=== PATIENT | male | born 1965 | race Caucasian/White ===

== ENCOUNTER → 2016-08-26 | Outpatient (CLI) | payer OTHER ==
[~2016-08-26] MED LIST: ASPCH81X PO; CHOL100010 PO; INDO-22 PO; LOSA50TA6 PO; METH40CA PO
[2016-08-26 13:51] LABS: BASO % 0.2 %; BASO ABS # 0.02 K/uL (0-0.2); COMPLETE YES; HEMATOCRIT 41.6 % (42-52); IG% 0.2 %; LYMPH % 24.3 %; LYMPH ABS # 2.03 K/uL (1.2-3.4); MEAN CORPUSCULAR HEMOGLOBIN 27.1 pg (25-34); MEAN CORPUSCULAR HGB CONC 32.7 g/dl (32-36); MEAN PLATELET VOLUME 9.6 fL (7.4-10.4); NEUT % 66.3 %; PLATELET COUNT 244 K/uL (130-400); RED BLOOD COUNT 5.01 M/uL (4.7-6.1); WHITE BLOOD COUNT 8.36 K/uL (4.8-10.8)
[2016-08-26 14:22] LABS: ESTIMATED AVERAGE GLUCOSE 111 mg/dl; HA1C FLAG Normal (Normal)
[2016-08-26 14:29] LABS: ALT/SGPT 27 U/L (12-78); BLOOD UREA NITROGEN 20 mg/dl (7-18); CALCIUM 8.9 mg/dl (8.5-10.1); CARBON DIOXIDE 28 mmol/L (21-32); CHLORIDE 104 mmol/L (98-107); CHOLESTEROL 183 mg/dl (0-200); CREATININE 0.99 mg/dl (0.60-1.40); GLUCOSE 70 mg/dl (70-99); POTASSIUM 4.1 mmol/L (3.5-5.1); SODIUM 140 mmol/L (136-145); TRIGLYCERIDES 119 mg/dl (0-150); VERY LOW DENSITY LIPOPROT CALC 24 mg/dl
[2016-08-26 14:33] LABS: ALB/GLOB RATIO 0.9 (0.9-2); ALKALINE PHOSPHATASE 128 U/L (45-117); AST/SGOT 17 U/L (15-37); CHOLESTEROL/HDL RATIO 4.7; HDL CHOLESTEROL 39 mg/dl; LDL CHOLESTEROL CALCULATED 120 mg/dl; PROSTATE SPECIFIC ANTIGEN 0.077 ng/ml (0.000-4.000); TOTAL IRON BINDING CAPACITY 266 mcg/dl (250-450)
== END | disposition home or self-care (01) ==
LOC: C.LABBC 10:24
PROVIDERS: ATTEND Family Medicine
DX: Z11.59 Encounter for screening for other viral diseases (principal); D64.9 Anemia, unspecified; R73.03 Prediabetes; I10 Essential (primary) hypertension; R39.9 Unspecified symptoms and signs involving the genitourinary system; E78.5 Hyperlipidemia, unspecified

== ENCOUNTER → 2016-10-13 | Outpatient (CLI) | payer OTHER ==
--- NOTE | 2016-10-13 10:00 | DIAGNOSTIC IMAGING REPORT ---
(BARIUM SWALLOW) ESOPHAGUS CLINICAL HISTORY: R13.10 Dysphagia PATIENT WITH DYSPHAGIA, COUGH WITH EATING, AND P COMPARISON STUDY: None. FLUOROSCOPY TIME: 1.2 minutes. 23 images submitted. FINDINGS: The patient swallowed barium without difficulty. The contours of the hypopharynx are within normal limits. The esophagus is normal in course, caliber, motility. No hiatus hernia. No gastroesophageal reflux. The barium tablet passed without difficulty. IMPRESSION: Normal barium swallow. Electronically signed by: Braulio Lobato M.D. 10/13/2016 9:58 AM Dictated Date/Time: 10/13/2016 9:57 AM
== END | disposition home or self-care (01) ==
LOC: C.RAD 08:25
DX: R13.10 Dysphagia, unspecified (principal)

== ENCOUNTER → 2016-11-14 | Outpatient (CLI) | payer OTHER ==
--- NOTE | 2016-11-14 09:09 | DIAGNOSTIC IMAGING REPORT ---
TWO VIEW CHEST CLINICAL HISTORY: Cough. FINDINGS: PA and lateral chest radiographs are compared to study dated 05/23/2016. The heart is top normal for projection. The pulmonary vasculature is noncongested. The lungs and pleural spaces are clear. There is no pneumothorax. The bony thorax appears intact. Degenerative change and mild scoliosis are noted in the thoracic spine. IMPRESSION: No active disease in the chest. Electronically signed by: Mark Genao M.D. 11/14/2016 9:07 AM Dictated Date/Time: 11/14/2016 9:07 AM
== END | disposition home or self-care (01) ==
LOC: C.RADBC 08:32
PROVIDERS: ATTEND Family Medicine
DX: R05 Cough (principal)

== ENCOUNTER → 2016-12-29 | Outpatient (CLI) | payer OTHER ==
--- NOTE | 2016-12-29 14:06 | DIAGNOSTIC IMAGING REPORT ---
CHEST CT WITHOUT CONTRAST CT DOSE: 692.66 mGy.cm HISTORY: Cough. Aspiration pneumonia. TECHNIQUE: Multiaxial CT images of the chest were performed without contrast. COMPARISON: Chest 11/14/2016. FINDINGS: The central airways are patent. No pleural effusions. No pneumothorax. Punctate calcification within the right lower lobe. Mosaic attenuation within the lungs most pronounced within the lung bases. This is suggestive of air trapping. No mediastinal or hilar lymphadenopathy. Normal caliber thoracic aorta. The heart is normal in size. No pleural or pericardial effusions. The visualized unenhanced liver, spleen, and adrenal glands are unremarkable. No suspicious lytic or blastic osseous lesions. IMPRESSION: Mild mosaic attenuation within the lungs most pronounced at the lung bases. This is suggestive of air trapping and can be seen in the setting of small airways disease. No focal lung consolidations to suggest pneumonia. Electronically signed by: Braulio Lobato M.D. 12/29/2016 2:04 PM Dictated Date/Time: 12/29/2016 1:55 PM
== END | disposition home or self-care (01) ==
LOC: C.CTS 13:26
PROVIDERS: ATTEND Internal Medicine Critical Care Medicine
DX: J69.0 Pneumonitis due to inhalation of food and vomit (principal); R05 Cough

== ENCOUNTER → 2017-03-03 | Day surgery (SDC) | payer OTHER ==
[2017-02-26 14:10] VITALS: BMI 45.0
[~2017-03-03] VITALS: Ht 170.2 cm; Wt 131.8 kg
[~2017-03-03] MED LIST changes: +LIDOCAINE HCL 2% 2 ML VIAL (20MG/ML) ONE; -LOSA50TA6 PO; +PROPOFOL IV EMULSION 10 MG/ML 20 ML VIAL IV ONE; +SODIUM CHLORIDE 0.9% 500ML 500 ML IV ONE
[2017-03-03 10:59] VITALS: Ht 170.2 cm; Wt 131.8 kg
--- NOTE | 2017-03-03 11:35 | Endo History and Physical ---
History & Physical Date of Service: Mar 03, 2017. Chief Complaint: COUGH DYSPHAGIA Referring Physician: SHADIA WHEAT History of Present Illness Chronic cough. Here for EGD with [facility] pH study. Off acid suppression. Past Surgical History Hx Cardiac Surgery: No Hx Internal Defibrillator: No Hx Pacemaker: No Hx Abdominal Surgery: No Hx of Implantable Prosthesis: No Hx Post-Op Nausea and Vomiting: No Hx Cancer Surgery: No Hx Thoracic Surgery: No Hx Orthopedic: Yes (LEFT FOOT SURGERY X2) Hx Urinary Tract Surgery: No Family History None Social History Smoking Status: Never Smoker Hx Substance Use: No Hx Alcohol Use: No Allergies Coded Allergies: Povidone Iodine (Unverified Allergy, Intermediate, OTHER, 03/03/17) SWELLING Shellfish (Verified Allergy, Unknown, RASH, 03/03/17) Current Medications Reported Home Medications Medications Dose Route/Sig Max Daily Dose Days Date Category Dose Instructions Vitamin D (Cholecalciferol) 1,000 Inter.unit Tab 1,000 Inter.unit PO QAM 01/01/16 Reported Indocin (Indomethacin) 25 Mg Cap 25 Mg PO QAM 01/01/16 Reported Aspirin Chewable (Aspirin) 81 Mg Chew 81 Mg PO QAM 12/03/15 Reported RAN OUT OF MED FOR ABOUT A MONTH Ritalin La (Methylphenidate Hcl) 40 Mg Cap 1 Cap PO QAM 12/03/15 Reported Vital Signs Weight (Kilograms): 131.82 Height (Feet): 5 Height (Inches): 7 Date Time Temp Pulse Resp B/P (MAP) Pulse Ox O2 Delivery O2 Flow Rate FiO2 03/03/17 11:11 36.8 79 20 134/72 (92) 93 Room Air Physical Exam General Appearance: WD/WN, no apparent distress, + obese Respiratory/Chest: Auscultation: breath sounds normal, no wheezing Cardiovascular: Heart Auscultation: RRR, no murmurs Assessment and Plan EGD with Barakat today.
--- NOTE | 2017-03-03 13:05 | Discharge Instructions ---
Endoscopy Patient Instructions Date / Procedure(s) Performed Mar 03, 2017. EGD Allergy Information Coded Allergies: Povidone Iodine (Unverified Allergy, Intermediate, OTHER, 03/03/17) SWELLING Shellfish (Verified Allergy, Unknown, RASH, 03/03/17) Discharge Date / Findings Mar 03, 2017. Normal EGD. SMITH placement failed. Medication Instructions Restart Stopped Medication(s): Restart all medications today. Provider Instructions Activity Restrictions - No exercising or heavy lifting for 24 hours. - Do not drink alcohol the day of the procedure. - Do not drive a car or operate machinery until the day after the procedure. - Do not make any important decisions or sign important papers in 24 hours after the procedure. Following Day: - Return to full activity which may include returning to work/school. Diet Start your diet with liquids and light foods (jello, soup, juice, toast). Then eat your usual diet if not nauseated. Treatment For Common After Affects For mild abdominal pain, bloating, or excessive gas: - Rest - Eat lightly - Lie on right side Follow-Up Information Follow-up with SHADIA WHEAT as scheduled Reschedule SMITH in one month. Anesthesia Information What You Should Know You have had a procedure that required some medicine to reduce anxiety and discomfort. This treatment is called moderate sedation. After receiving the treatment, you may be sleepy, but you will be able to breathe on your own. The effects of the treatment may last for several hours. Follow these instructions along with Activity/Diet recommendations noted above: * Do NOT do anything where dizziness or clumsiness would be dangerous. * Rest quietly at home today, then you can be up and about tomorrow. * Have a responsible person stay with you the rest of today. * You may have had an I.V. today. If so, you may take the dressing off later today. Recommendations Call your doctor if: * Trouble breathing * Continuous vomiting for more than 24 hours * Temperature above 101 degrees * Severe abdominal pain or bloating * Pain not relieved by pain medicine ordered * There is increased drainage or redness from any incision * A large amount of rectal bleeding greater than 2-3 tablespoons. (If you had a polyp/s removed or have hemorrhoids, a small amount of blood - from the rectum is to be expected.) * You have any unanswered questions or concerns. IN THE EVENT OF A SERIOUS EMERGENCY, GO TO THE NEAREST EMERGENCY ROOM Your discharge instructions were prepared by provider John Jefferson. Patient Instructions Signature Page Estuardo Prado Patient (or Guardian) Signature/Date: I have read and understand the instructions given to me by my caregivers. Caregiver/RN/Doctor Signature/Date: The above-named patient and/or guardian has received patient instructions on this date. + Original Patient Signature Page (only) stays with chart. Please make copy for patient.
--- NOTE | 2017-03-03 13:24 | Anesthesiology Progress Note ---
Anesthesia Post Op Note Date & Time Mar 03, 2017 at 13:23 Vital Signs Pain Intensity: 0 Vital Signs Past 12 Hours Date Time Temp Pulse Resp B/P (MAP) Pulse Ox O2 Delivery O2 Flow Rate FiO2 03/03/17 13:12 73 20 138/96 (110) 93 Room Air 03/03/17 12:51 79 20 130/71 (90) 93 Room Air 03/03/17 11:11 36.8 79 20 134/72 (92) 93 Room Air Notes Mental Status: alert / awake / arousable, participated in evaluation Pt Amnestic to Procedure: Yes Nausea / Vomiting: adequately controlled Pain: adequately controlled Airway Patency, RR, SpO2: stable & adequate BP & HR: stable & adequate Hydration State: stable & adequate Anesthetic Complications: no major complications apparent Doing well. VSS.
[2017-03-03 13:35] VITALS: BP 148/93; PULSE 73; O2SAT 93
--- NOTE | 2017-03-04 00:14 | GI REPORT ---
Procedure Date: 03/03/2017 11:30 AM Procedure: Upper GI endoscopy Indications: Chronic cough Medicines: Propofol per Anesthesia Complications: No immediate complications. Estimated blood loss: None. Estimated Blood Loss: Estimated blood loss: none. Procedure: Pre-Anesthesia Assessment: - Prior to the procedure, a History and Physical was performed, and patient medications, allergies and sensitivities were reviewed. The patient's tolerance of previous anesthesia was reviewed. - ASA Grade Assessment: III - A patient with severe systemic disease. After obtaining informed consent, the endoscope was passed under direct vision. Throughout the procedure, the patient's blood pressure, pulse, and oxygen saturations were monitored continuously. The scope was introduced through the mouth, and advanced to the third part of duodenum. The upper GI endoscopy was accomplished with ease. The patient tolerated the procedure well. Findings: The upper third of the esophagus, middle third of the esophagus and lower third of the esophagus were normal. The Z-line was regular and was found 39 cm from the incisors. The SMITH capsule with delivery system was introduced through the mouth and advanced into the esophagus, such that the SMITH pH capsule was positioned 33 cm from the incisors, which was 6 cm proximal to the EG junction. Suction was applied to the well of the SMITH pH capsule to suck in the adjacent mucosa of the esophagus using the external vacuum pump set at a minimum vacuum pressure of 550 mmHg for 60 seconds. The SMITH pH capsule was then deployed by depressing the plunger on top of the handle to advance the locking pin into the mucosa, thereby attaching the capsule to the esophagus. The plunger was then rotated a quarter turn clockwise to release the capsule from the delivery system. The delivery system was then withdrawn. The SMITH capsule remained attached to the delivery system. It did not deploy. A second SMITH capsule placement was then attempted and again did not deploy. The procedure was aborted. The stomach was normal. The examined duodenum was normal. Impression: - Normal upper third of esophagus, middle third of esophagus and lower third of esophagus. - Z-line regular, 39 cm from the incisors. - Normal stomach. - Normal examined duodenum. - Failed SMITH capsule placement. - No specimens collected. Recommendation: - Repeat the upper endoscopy in [address] new SMITH capsule. John Jefferson M.D. John Jefferson MD 03/03/2017 12:54:23 PM This report has been signed electronically. Note Initiated On: 03/03/2017 11:30 AM I attest to the content of the Intraoperative Record and orders documented therein, exceptions below
== END | disposition home or self-care (01) ==
LOC: C.GI 10:56
PROVIDERS: ATTEND Internal Medicine Gastroenterology
DX: R13.10 Dysphagia, unspecified (principal); R05 Cough; Z79.82 Long term (current) use of aspirin

== ENCOUNTER → 2017-04-01 | Day surgery (SDC) | payer OTHER ==
[~2017-04-01] VITALS: Ht 170.2 cm; Wt 130.0 kg
[2017-04-01 10:29] VITALS: Ht 170.2 cm; Wt 130.0 kg
--- NOTE | 2017-04-01 10:45 | Endo History and Physical ---
History & Physical Date of Service: Apr 01, 2017. Chief Complaint: Smith for reflux Referring Physician: Dr. Mclaughlin History of Present Illness Chronic cough, here for SMITH pH study Past Surgical History Hx Cardiac Surgery: No Hx Internal Defibrillator: No Hx Pacemaker: No Hx Abdominal Surgery: No Hx of Implantable Prosthesis: No Hx Post-Op Nausea and Vomiting: No Hx Cancer Surgery: No Hx Thoracic Surgery: No Hx Orthopedic: No Hx Urinary Tract Surgery: No Family History None Social History Smoking Status: Never Smoker Hx Substance Use: No Hx Alcohol Use: No Allergies Coded Allergies: Povidone Iodine (Verified Allergy, Intermediate, OTHER, 04/01/17) SWELLING Shellfish (Verified Allergy, Unknown, RASH, 03/03/17) Current Medications Reported Home Medications Medications Dose Route/Sig Max Daily Dose Days Date Category Ritalin La (Methylphenidate Hcl) 40 Mg Cap 1 Cap PO QAM 12/03/15 Reported Vital Signs Weight (Kilograms): 130 Height (Feet): 5 Height (Inches): 7 Date Time Temp Pulse Resp B/P (MAP) Pulse Ox O2 Delivery O2 Flow Rate FiO2 04/01/17 10:25 36.6 73 18 134/76 (95) 92 Room Air Physical Exam General Appearance: WD/WN, no apparent distress Respiratory/Chest: Auscultation: breath sounds normal, no wheezing Cardiovascular: Heart Auscultation: RRR, no murmurs Abdomen: Inspection & Palpation: soft, no tenderness, guarding & rebound Assessment and Plan EGD with SMITH today.
--- NOTE | 2017-04-01 11:19 | GI REPORT ---
Procedure Date: 04/01/2017 10:59 AM Procedure: Upper GI endoscopy Indications: Chronic cough, SMITH pH study off acid suppressing medications Medicines: Monitored Anesthesia Care Complications: No immediate complications. Estimated blood loss: None. Estimated Blood Loss: Estimated blood loss: none. Procedure: Pre-Anesthesia Assessment: - Prior to the procedure, a History and Physical was performed, and patient medications, allergies and sensitivities were reviewed. The patient's tolerance of previous anesthesia was reviewed. - ASA Grade Assessment: III - A patient with severe systemic disease. After obtaining informed consent, the endoscope was passed under direct vision. Throughout the procedure, the patient's blood pressure, pulse, and oxygen saturations were monitored continuously. The scope was introduced through the mouth, and advanced to the third part of duodenum. The upper GI endoscopy was accomplished with ease. The patient tolerated the procedure well. Findings: The upper third of the esophagus, middle third of the esophagus and lower third of the esophagus were normal. The SMITH capsule with delivery system was introduced through the mouth and advanced into the esophagus, such that the SMITH pH capsule was positioned 34 cm from the incisors, which was 6 cm proximal to the EG junction. Suction was applied to the well of the SMITH pH capsule to suck in the adjacent mucosa of the esophagus using the external vacuum pump set at a minimum vacuum pressure of 570 mmHg for 60 seconds. The SMITH pH capsule was then deployed by depressing the plunger on top of the handle to advance the locking pin into the mucosa, thereby attaching the capsule to the esophagus. The plunger was then rotated a quarter turn clockwise to release the capsule from the delivery system. The delivery system was then withdrawn. Endoscopy was utilized for placement of the probe only. The Z-line was regular and was found 40 cm from the incisors. The stomach was normal. The examined duodenum was normal. Impression: - Normal upper third of esophagus, middle third of esophagus and lower third of esophagus. - Z-line regular, 40 cm from the incisors. - Normal stomach. - Normal examined duodenum. - The SMITH pH capsule was positioned 34 cm from the naris, which was 6 cm proximal to the EG junction. - No specimens collected. Recommendation: - SMITH instructions - Discharge patient to home (with escort). John Jefferson M.D. John Jefferson MD 04/01/2017 11:18:36 AM This report has been signed electronically. Note Initiated On: 04/01/2017 10:59 AM I attest to the content of the Intraoperative Record and orders documented therein, exceptions below
--- NOTE | 2017-04-01 11:22 | Discharge Instructions ---
Endoscopy Patient Instructions Date / Procedure(s) Performed Apr 01, 2017. EGD Allergy Information Coded Allergies: Povidone Iodine (Verified Allergy, Intermediate, OTHER, 04/01/17) SWELLING Shellfish (Verified Allergy, Unknown, RASH, 03/03/17) Discharge Date / Findings Apr 01, 2017. SMITH pH capsule placed successfully. Medication Instructions Restart Stopped Medication(s): Do not use heartburn medication such as omeprazole (Prilosec), pantoprazole ( Protonix), ranitidine (Zantac), famotidine (Pepcid) during the SMITH test. Follow instructions provided for SMITH test. Other medications may be resumed. Provider Instructions Activity Restrictions - No exercising or heavy lifting for 24 hours. - Do not drink alcohol the day of the procedure. - Do not drive a car or operate machinery until the day after the procedure. - Do not make any important decisions or sign important papers in 24 hours after the procedure. Following Day: - Return to full activity which may include returning to work/school. Diet Start your diet with liquids and light foods (jello, soup, juice, toast). Then eat your usual diet if not nauseated. Treatment For Common After Affects For mild abdominal pain, bloating, or excessive gas: - Rest - Eat lightly - Lie on right side Follow-Up Information Follow-up with Dr. Byrne as scheduled Anesthesia Information What You Should Know You have had a procedure that required some medicine to reduce anxiety and discomfort. This treatment is called moderate sedation. After receiving the treatment, you may be sleepy, but you will be able to breathe on your own. The effects of the treatment may last for several hours. Follow these instructions along with Activity/Diet recommendations noted above: * Do NOT do anything where dizziness or clumsiness would be dangerous. * Rest quietly at home today, then you can be up and about tomorrow. * Have a responsible person stay with you the rest of today. * You may have had an I.V. today. If so, you may take the dressing off later today. Recommendations Call your doctor if: * Trouble breathing * Continuous vomiting for more than 24 hours * Temperature above 101 degrees * Severe abdominal pain or bloating * Pain not relieved by pain medicine ordered * There is increased drainage or redness from any incision * A large amount of rectal bleeding greater than 2-3 tablespoons. (If you had a polyp/s removed or have hemorrhoids, a small amount of blood - from the rectum is to be expected.) * You have any unanswered questions or concerns. IN THE EVENT OF A SERIOUS EMERGENCY, GO TO THE NEAREST EMERGENCY ROOM Your discharge instructions were prepared by provider John Jefferson. Patient Instructions Signature Page Estuardo Prado Patient (or Guardian) Signature/Date: I have read and understand the instructions given to me by my caregivers. Caregiver/RN/Doctor Signature/Date: The above-named patient and/or guardian has received patient instructions on this date. + Original Patient Signature Page (only) stays with chart. Please make copy for patient.
[2017-04-01 11:50] VITALS: BP 139/92; PULSE 71; O2SAT 92
--- NOTE | 2017-04-01 11:50 | Anesthesiology Progress Note ---
Anesthesia Post Op Note Date & Time Apr 01, 2017 at 11:50 Vital Signs Pain Intensity: 0 Vital Signs Past 12 Hours Date Time Temp Pulse Resp B/P (MAP) Pulse Ox O2 Delivery O2 Flow Rate FiO2 04/01/17 11:33 73 18 137/89 (105) 92 Room Air 04/01/17 11:18 76 18 124/79 (94) 92 Room Air 04/01/17 10:25 36.6 73 18 134/76 (95) 92 Room Air Notes Mental Status: alert / awake / arousable, participated in evaluation Pt Amnestic to Procedure: Yes Nausea / Vomiting: adequately controlled Pain: adequately controlled Airway Patency, RR, SpO2: stable & adequate BP & HR: stable & adequate Hydration State: stable & adequate Anesthetic Complications: no major complications apparent
--- NOTE | 2017-04-03 16:30 | Procedure Note ---
Procedure Note Procedure Date Apr 03, 2017. Procedure Description Procedure Name: SMITH pH Study Procedure time out: side/site verified, patient ID confirmed, correct procedure Consent obtained: written Performed by: attending Indications: diagnostic Contraindications: none Description: This procedure was done off acid suppression. There is significant acid reflux noted on day 2 of the study predominantly in the upright posture and after meals. There was minimal reflux on day 1. Overall DeMeester score was 70.9 (nl <14.72)
== END | disposition home or self-care (01) ==
LOC: C.GI 09:39
PROVIDERS: ATTEND Internal Medicine Gastroenterology
DX: R05 Cough (principal)

== ENCOUNTER → 2017-04-07 | Outpatient (CLI) | payer OTHER ==
[~2017-04-07] MED LIST changes: -ASPCH81X PO; -CHOL100010 PO; -INDO-22 PO; -LIDOCAINE HCL 2% 2 ML VIAL (20MG/ML) ONE; -PROPOFOL IV EMULSION 10 MG/ML 20 ML VIAL IV ONE; -SODIUM CHLORIDE 0.9% 500ML 500 ML IV ONE
--- NOTE | 2017-04-07 15:04 | DIAGNOSTIC IMAGING REPORT ---
(CHEST) THORAX WITHOUT CT DOSE: 607.68 mGycm CLINICAL HISTORY: 51 years-old Male with R91.[address] scan. Follow-up study. History of cough with aspiration pneumonitis. TECHNIQUE: Multiaxial CT images of the chest were performed without contrast. A dose lowering technique was utilized adhering to the principles of ALARA. COMPARISON: CT chest 12/29/2016. FINDINGS: No dominant thyroid nodule identified. Scattered nonspecific mildly prominent nonenlarged mediastinal lymph nodes are seen with prevascular lymph nodes measuring up to 6 mm in short axis. These are nonspecific and likely physiologic. Heart is mildly enlarged with coronary arterial and aortic annular calcifications. There is no pneumothorax, pleural effusion or focal airspace consolidation. Mild mosaic attenuation the lung bases is again seen with slight improvement from prior. There is no significant bronchial wall thickening identified. No suspicious pulmonary nodules. Central airways are patent. Upper abdominal structures are within normal limits with contracted gallbladder. Symmetric bilateral gynecomastia noted. Multilevel endplate spurring of the thoracic spine is noted. IMPRESSION: 1. Persistent is a continuation of the bilateral lungs, most pronounced at the level of the lung bases is again seen, similar to slightly improved from prior study dated 12/29/2016. These findings again suggest air trapping which can be seen in the setting of small airways disease. No significant bronchial wall thickening identified. 2. No evidence of pneumonia. Electronically signed by: Jack Harrison M.D. 04/07/2017 3:03 PM Dictated Date/Time: 04/07/2017 2:57 PM
== END | disposition home or self-care (01) ==
LOC: C.CTS 14:13
PROVIDERS: ATTEND Internal Medicine Critical Care Medicine
DX: R91.8 Other nonspecific abnormal finding of lung field (principal)

== ENCOUNTER → 2017-07-23 | Outpatient (CLI) | payer OTHER | END | disposition home or self-care (01) | LOC: C.LABSPEC 17:00 | PROVIDERS: ATTEND Podiatrist Foot & Ankle Surgery | DX: L97.509 Non-pressure chronic ulcer of other part of unspecified foot with unspecified severity (principal) ==

== ENCOUNTER → 2017-07-23 | Outpatient (CLI) | payer OTHER ==
--- NOTE | 2017-07-23 13:49 | DIAGNOSTIC IMAGING REPORT ---
RIGHT FOOT 3 VIEWS CLINICAL HISTORY: Foot ulceration. FINDINGS: 3 views of the right foot are compared to study dated 05/21/2015. The skeletal structures are osteopenic. No acute fracture is seen. There are large dorsal and plantar calcaneal enthesophytes. Extensive spurring is seen along the dorsal aspect of the tarsal bones. Advanced arthritic changes present involving the intertarsal joints, with bony sclerosis and erosions. Arthritic change is also seen at the first metatarsophalangeal joint. Soft tissue edema is present throughout the forefoot. No subcutaneous gas is identified. IMPRESSION: 1. No acute bony abnormality is clearly identified in the right foot. 2. Diffuse soft tissue edema suggests cellulitis. Clinical correlation will be required. 3. Significant increase in degenerative change involving the intertarsal joints as compared to 05/21/2015. Correlate clinically for evidence of developing Charcot foot. Infection is considered much less likely. Electronically signed by: Mark Genao M.D. 07/23/2017 1:48 PM Dictated Date/Time: 07/23/2017 1:45 PM
== END | disposition home or self-care (01) ==
LOC: C.RAD 13:26
PROVIDERS: ATTEND Podiatrist Foot & Ankle Surgery
DX: L97.411 Non-pressure chronic ulcer of right heel and midfoot limited to breakdown of skin (principal); L97.512 Non-pressure chronic ulcer of other part of right foot with fat layer exposed; L97.515 Non-pressure chronic ulcer of other part of right foot with muscle involvement without evidence of necrosis; M79.9 Soft tissue disorder, unspecified; M19.071 Primary osteoarthritis, right ankle and foot

== ENCOUNTER → 2017-09-17 | Outpatient (CLI) | payer OTHER ==
--- NOTE | 2017-09-17 12:02 | DIAGNOSTIC IMAGING REPORT ---
R FOOT MIN 3 VIEWS ROUTINE CLINICAL HISTORY: L03.115 RIGHT FOOT PAIN COMPARISON: 07/23/2017 DISCUSSION: No acute fractures are visualized. There is dorsal soft tissue swelling at the level the ankle. There is Achilles insertional spur and prominent plantar calcaneal spur. There are erosive changes at the level of the navicular and medial and middle cuneiform articulations. There is slight navicular and cuneiform sclerosis. IMPRESSION: 1. No acute fractures 2. Moderately advanced arthritic changes with sclerosis and erosive changes involving the navicular and medial and middle cuneiform articulations 3. Calcaneal spurring Electronically signed by: Wicho Rodríguez M.D. 09/17/2017 12:01 PM Dictated Date/Time: 09/17/2017 11:59 AM
== END | disposition home or self-care (01) ==
LOC: C.RAD 11:37
PROVIDERS: ATTEND Podiatrist Foot & Ankle Surgery
DX: L03.115 Cellulitis of right lower limb (principal)

== ENCOUNTER → 2017-10-08 | Outpatient (CLI) | payer OTHER ==
[~2017-10-08] MED LIST changes: +CEFE1INJ3 IV; +GADAVIST IV PRN; +RANI150C4 PO; +SNG10 PO; +VANC1INJ IV
--- NOTE | 2017-10-08 14:07 | DIAGNOSTIC IMAGING REPORT ---
MRI RIGHT FOREFOOT COMBO CLINICAL HISTORY: Second toe ulceration. COMPARISON STUDY: Radiographs of the right foot dated 09/17/2017. TECHNIQUE: MRI of the right forefoot is performed utilizing various T1 and T2-weighted sequences in the axial, sagittal, and coronal planes. Contrast-enhanced sequences are acquired following the IV administration of 13 mL of Gadavist. The examination is modestly degraded by motion artifact and suboptimal patient positioning. FINDINGS: There is a cutaneous ulceration identified at the tip of the second digit with surrounding soft tissue edema and nonspecific patchy abnormal enhancement. The appearance is consistent with cellulitis. No organized fluid collection is seen to indicate abscess. There is significant marrow edema identified within the second distal phalanx, with drop in signal on the T1-weighted sequences, increased T2 signal, and nonspecific enhancement. The appearance is consistent with osteomyelitis. No additional foci of similar-appearing marrow signal abnormality are identified in the forefoot. Mild myositis is suggested involving the flexor musculature. Arthritic change is noted involving the partially imaged intertarsal and tarsometatarsal joints. IMPRESSION: 1. Findings are consistent with osteomyelitis involving the second distal phalanx. 2. There is evidence of overlying cellulitis and cutaneous ulceration. No organized fluid collection is seen to suggest abscess. 3. No similar-appearing marrow changes are identified throughout the remaining structures of the forefoot. Dictated: 10/08/2017 12:27 PM Transcribed: 10/08/2017 2:07 PM [email or web address] Electronically signed by: Mark Genao M.D. 10/08/2017 2:18 PM Dictated Date/Time: 10/08/2017 12:27 PM
== END | disposition home or self-care (01) ==
LOC: C.MRI 10:25
PROVIDERS: ATTEND Podiatrist Foot & Ankle Surgery
DX: L03.115 Cellulitis of right lower limb (principal); L97.512 Non-pressure chronic ulcer of other part of right foot with fat layer exposed

== ENCOUNTER 2017-10-12 09:59 | Inpatient (IN) | payer OTHER ==
[~2017-10-12] VITALS: Ht 170.2 cm; Wt 129.0 kg
[2017-10-12 11:55] VITALS: BP 158/85; PULSE 85; TEMP 37; Ht 170.2 cm; Wt 129.0 kg
[2017-10-12 12:00] VITALS: O2SAT 94
[2017-10-12] MEDS ORDERED: POLYETHYLENE (MIRALAX) 17 GM PACK PO PRN (12:45)
[2017-10-12] MEDS ORDERED: VANCOMYCIN CONSULT ACTIVE PRN (12:45)
[2017-10-12] MEDS ORDERED: ACETAMINOPHEN 325 MG TAB PO PRN (12:45)
[2017-10-12] MEDS ORDERED: ONDANSETRON INJ 2 MG/ML 2 ML VIAL IV PRN (12:45)
--- NOTE | 2017-10-12 13:14 | DIAGNOSTIC IMAGING REPORT ---
SINGLE VIEW CHEST CLINICAL HISTORY: Preoperative examination FINDINGS: An AP, portable, upright chest radiograph is compared to study dated 11/14/2016 and correlated with chest CT dated 04/07/2017. The examination is degraded by portable technique, apical lordotic positioning, and patient rotation. The heart is top normal for projection. The mediastinal contour is within normal limits. There is mild elevation of left hemidiaphragm with associated atelectasis. No airspace consolidation or pleural effusion is seen. No pneumothorax is seen. The bony thorax is grossly intact. IMPRESSION: No active disease in the chest. Electronically signed by: Mark Genao M.D. 10/12/2017 1:13 PM Dictated Date/Time: 10/12/2017 1:12 PM
[2017-10-12 13:16] LABS: BASO % 0.2 %; BASO ABS # 0.02 K/uL (0-0.2); EOS % 0.9 %; EOS ABS # 0.08 K/uL (0-0.5); HEMATOCRIT 41.6 % (42-52); HEMOGLOBIN 13.7 g/dL (14.0-18.0); IG# 0.01 K/uL (0.00-0.02); LYMPH % 20.3 %; LYMPH ABS # 1.85 K/uL (1.2-3.4); MEAN CELL VOLUME 80.5 fL (80-100); MEAN CORPUSCULAR HEMOGLOBIN 26.5 pg (25-34); MEAN CORPUSCULAR HGB CONC 32.9 g/dl (32-36); MONO % 6.6 %; NEUT % 71.9 %; NEUT ABS # 6.54 K/uL (1.4-6.5); PLATELET COUNT 220 K/uL (130-400); RED CELL DISTRIBUTION WIDTH CV 15.6 % (11.5-14.5); RED CELL DISTRIBUTION WIDTH SD 45.6 fL (36.4-46.3)
[2017-10-12] MEDS ORDERED: VANCOMYCIN IV 2,500 MG in SODIUM CHLORIDE 0.9% 500ML 500 ML IV ONE (13:30)
[2017-10-12 13:50] LABS: CALCIUM 8.7 mg/dl (8.5-10.1); CREATININE 0.94 mg/dl (0.60-1.40)
[2017-10-12] MEDS: HEPARIN SOD 5000 UNIT/0.5 ML CARP SQ SCH (14:23)
[2017-10-12 15:11] VITALS: BP 123/78; PULSE 77; TEMP 36.8; O2SAT 91
--- NOTE | 2017-10-12 16:27 | Pharmacy Progress Note ---
Pharmacy Antibiotic Consult Date of Service: Oct 12, 2017. Pharmacy Dosing Scope Pharmacy is consulted to initiate vancomycin IV dosing therapy, order appropriate labs and adjust drug dose/frequency. Subjective The patient is a 52 year old male admitted on Oct 12, 2017 at 11:17. Objective Height (Feet): 5 Height (Inches): 7.00 Weight (Kilograms): 129.000 Lab Results (24hrs): Test 10/12/17 12:54 10/12/17 12:58 White Blood Count 9.10 K/uL (4.8-10.8) Red Blood Count 5.17 M/uL (4.7-6.1) Hemoglobin 13.7 g/dL (14.0-18.0) Hematocrit 41.6 % (42-52) Mean Corpuscular Volume 80.5 fL (80-100) Mean Corpuscular Hemoglobin 26.5 pg (25-34) Mean Corpuscular Hemoglobin Concent 32.9 g/dl (32-36) Platelet Count 220 K/uL (130-400) Mean Platelet Volume 9.0 fL (7.4-10.4) Neutrophils (%) (Auto) 71.9 % Lymphocytes (%) (Auto) 20.3 % Monocytes (%) (Auto) 6.6 % Eosinophils (%) (Auto) 0.9 % Basophils (%) (Auto) 0.2 % Neutrophils # (Auto) 6.54 K/uL (1.4-6.5) Lymphocytes # (Auto) 1.85 K/uL (1.2-3.4) Monocytes # (Auto) 0.60 K/uL (0.11-0.59) Eosinophils # (Auto) 0.08 K/uL (0-0.5) Basophils # (Auto) 0.02 K/uL (0-0.2) RDW Standard Deviation 45.6 fL (36.4-46.3) RDW Coefficient of Variation 15.6 % (11.5-14.5) Immature Granulocyte % (Auto) 0.1 % Immature Granulocyte # (Auto) 0.01 K/uL (0.00-0.02) Sodium Level 137 mmol/L (136-145) Potassium Level 4.0 mmol/L (3.5-5.1) Chloride Level 103 mmol/L (98-107) Carbon Dioxide Level 27 mmol/L (21-32) Anion Gap 7.0 mmol/L (3-11) Blood Urea Nitrogen 18 mg/dl (7-18) Creatinine 0.94 mg/dl (0.60-1.40) Est Creatinine Clear Calc Drug Dose 117.3 ml/min Estimated GFR () 106.9 Estimated GFR (Non- 92.2 BUN/Creatinine Ratio 18.8 (10-20) Random Glucose 72 mg/dl (70-99) Calcium Level 8.7 mg/dl (8.5-10.1) Prothrombin Time 10.6 SECONDS (9.0-12.0) Prothromb Time International Ratio 1.0 (0.9-1.1) Hepatitis C Antibody Screen NEG (NEG) Assessment & Plan Assessment * 52 yo M with admitting diagnosis of osteomyelitis - H&P pending at this time. * Ordered vancomycin. History of MSSA in R foot ulcer July 2017. * Vancomycin has exclusive Gram positive activity - osteomyelitis is often polymicrobial. Please consider broadening antibiotic coverage to include Gram negative organisms and possibly anaerobic organisms as well * SCr at/near baseline Vancomycin * Goal vancomycin trough 15-20 mcg/mL * Will dose at lower mg/kg but more aggressive interval * Anticipate accumulation 2nd BMI - therefore may need to dose adjust dose despite therapeutic levels to ensure levels do not become supratherapeutic. Plan * Please consider addition of Zosyn to regimen (for Gram negative and anaerobic coverage) * Vancomycin 2500 mg IV x1 then 1500 mg IV q8h * Trough 10/13 @ 1330 Pharmacy will continue to follow and will adjust dose/frequency as necessary. Thank you
--- NOTE | 2017-10-12 16:37 | HISTORY & PHYSICAL EXAMINATION ---
DATE OF ADMISSION: 10/12/2017 HISTORY OF PRESENT ILLNESS: A 52-year-old male well known to myself. I have been following him for years due to the peripheral neuropathy. He has had previous amputations on the left foot due to a previous osteomyelitis. He has also had a left foot fracture. He has been followed on a regular basis this past May when he started wearing some new shoes. He developed a blister at the end of the second toe, which was progressed into an ulceration that has gone on and has not healed over several months. Recent MRI shows the bone is infected over the distal phalanx. Due to the nature and severity of the bone involvement, the patient has agreed to surgical correction with removal of the infected bone. PAST SURGICAL HISTORY: Adenoids, foot surgery in 2011 and in 2013. PAST MEDICAL HISTORY: Hypertension, obesity, learning disability, attention deficit disorder, and peripheral neuropathy. MEDICATIONS: Methylphenidate, losartan; recent antibiotic has been Keflex. ALLERGIES: BETADINE AND SHELLFISH. FAMILY HISTORY: Heart attack. SOCIAL HISTORY: The patient denies smoking, alcohol use, illicit drug use, and STDs. 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 PHYSICAL EXAMINATION: VITAL SIGNS: 5 feet 8 inches, 290 pounds, body mass index 44. CONSTITUTIONAL: The patient appears well developed and nourished. HEAD AND FACE: Normocephalic, atraumatic. EARS, NOSE, MOUTH, AND THROAT: Unremarkable. NECK: Neck is supple. Trachea is midline. CARDIOVASCULAR: Normal S1, S2. RESPIRATORY: Chest is symmetric. No scars are visible with no port or pacemaker. GASTROINTESTINAL: Abdominal organs, bladder, and kidneys show no abnormalities. LYMPHATIC: No popliteal, inguinal, or supraclavicular lymphadenopathy noted. LOWER EXTREMITY: DP palpable. PT palpable. DERMATOLOGIC: There is an ulceration, plantar distal aspect of the right second toe and plantar distal medial right hallux, ulceration distal right second toe measures 0.39 x 0.36 cm. Base characteristics are exposed muscle. Mild redness, significant swelling noted distally. No active drainage. NEUROLOGIC: Epicritic sensation per Carson-Prabhu monofilament 5.07 grossly absent. MUSCULOSKELETAL: Amputation right fifth digit metatarsal level is noted. LABORATORY DATA: ABIs on 08/20/2017 showed a digital toe pressure of the right 1.04 and of the left of 0.90. Bacterial culture from July showed staph aureus. IMAGING DATA: X-ray on July 23 show questionable developing Charcot foot, significant increase in degenerative changes involving the intertarsal joints compared to the May 21 films. MRI on 10/08/2017 show cutaneous ulceration at the tip of the 2nd digit. Surrounding soft tissue and nonspecific patchy abnormality enhancement, appearance is consistent with osteomyelitis involving the distal phalanx of the second toe. There is evidence of overlying cellulitis cutaneous ulceration, no organized fluid collection seen to suggest an abscess. No similar bone ____ changes are identified throughout the remaining structures of the forefoot. IMPRESSION: 1. Osteomyelitis, distal phalanx, right second digit per MRI. 2. Cellulitis, right foot. 3. Charcot arthropathy. 4. Peripheral neuropathy, idiopathic. 5. Traumatic ulceration, right second toe secondary to peripheral neuropathy and new shoes. 6. Status post left fifth metatarsal resection in 2011 with delayed primary closure, status post open reduction external fixation left fourth metatarsal on 05/25/2013, well healed, status post amputation of left fifth digit metatarsal level on 01/04/2016. PLAN: Due to the nature and severity of the infection, I recommended proceeding with amputation of right second toe and I&D of the right foot. This will be performed under local with IV sedation as an inpatient at the hospital. Reviewed procedure risks and complications with the patient. Consent form, foot diagram illustration reviewed in all their entirety. All the patient's questions were answered. Complications were discussed in detail with the patient including pain, infection, swelling that may or may not be excessive, pins and needles feeling, numbness, metatarsalgia, excessive bleeding, delayed or nonhealing of bone, delayed or nonhealing of skin, enlarged scar for the procedure, recurrence or worsening conditions which may or may not require further surgery, adverse reaction to anesthesia, allergic reaction to suture or other implant material, loss of toe, foot, or leg, flail toe, stiff toe, short toe, elevated toe, transfer lesion or callus, peripheral neurovascular complications such as phlebitis, damage to nerves or vascular structures, recurrent pain, chronic nerve pain, damage, general complications. The patient will be required to be in a surgery shoe for a minimum for 4-6 weeks and not return to dress shoe for 6-12 weeks depending on the postop edema. The patient is aware that this is an elective procedure and I recommended a second opinion. The patient stated he understood. Consent form signed with a copy of the foot diagram and illustration given to the patient. Verbal and written postop instructions were given. The patient will be required to be in a surgery shoe for a minimum for 4-6 weeks and will receive 6 weeks of IV antibiotics, stop date being November 24. PICC line consent was obtained. 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
--- NOTE | 2017-10-12 17:00 | History and Physical ---
History & Physical Date & Time of Service: Oct 12, 2017 at 16:48 Chief Complaint: Toe Osteomyelitis Primary Care Physician: Ramses Wright D.O. History of Present Illness Source: patient, hospital records 52 yo male with obesity, peripheral neuropathy, prior left toe amputation for osteomyelitis presents from podiatry office due to right second toe osteomyelitis. He denies any pain in the toe, he does admit to some numbness overall in the foot, chronic issue. No fever or chills. He had been taking Keflex as prescribed. An MRI last week showed osteomyelitis of the 2nd phalynx and amputation/debridement recommended. Patient says he has not had issues with anesthesia in the past. Had a prior history of hypertension but that resolved with weight loss. No history of DM, CKD, MO or stroke. He has a family history of father with heart attack. Past Medical/Surgical History Obesity Peripheral neuropathy h/o osteomyelitis of toe on left foot, s/p amputation H/o HTN that resolved with weight loss ADD Seasonal allergies Medical Problems: (1) Osteomyelitis of toe Family History Father: MO Social History Smoking Status: Never Smoker Housing status: lives alone Immunizations History of Influenza Vaccine: Yes Influenza Vaccine Date: May 04, 2011 History of Tetanus Vaccine?: Yes Tetanus Immunization Date: December 03, 2011 History of Pneumococcal: No History of Hepatitis B Vaccine: Unknown Allergies Coded Allergies: Povidone Iodine (Verified Allergy, Intermediate, OTHER, 04/01/17) SWELLING Shellfish (Verified Allergy, Unknown, RASH, 03/03/17) Home Medications Scheduled Methylphenidate Hcl (Ritalin La), 1 CAP PO QAM Review of Systems Constitutional: No fever, No chills, No sweats, No weight loss, No weakness, No fatigue, No problem reported Eyes: No worsening of vision, No eye pain, No redness, No discharge, No diplopia, No problem reported ENT: No hearing loss, No unusual epistaxis, No nasal symptoms, No sore throat, No tinnitus, No dental problems, No trouble swallowing, No problem reported Respiratory: No cough, No sputum, No wheezing, No shortness of breath, No dyspnea on exertion, No dyspnea at rest, No hemoptysis, No problem reported Cardiovascular: No chest pain, No orthopnea, No PND, No edema, No claudication , No palpitations, No problem reported Abdomen: No pain, No nausea, No vomiting, No diarrhea, No constipation, No GI bleeding, No problem reported Musculoskeletal: No joint pain, No muscle pain, No swelling, No calf pain, No problem reported Genitourinary - Male: No hematuria, No dysuria, No urinary frequency, No urinary urgency Neurologic: No memory loss, No paralysis, No weakness, No numbness/tingling, No vertigo, No balance problems, No problem reported Psychiatric: No depression symptoms, No anhedonism, No anxiety, No insomnia, No substance abuse, No problem reported Endocrine: No fatigue, No excessive thirst, No excessive urination, No problem reported Hematologic / Lymphatic: No abnormal bleeding/bruising, No clotting problems, No swollen lymph nodes, No night sweats, No problem reported Integumentary: + problem reported (right second toe cellulitis, laceration) Allergic / Immunologic: + seasonal allergies Physical Exam Vital Signs Date Time Temp Pulse Resp B/P (MAP) Pulse Ox O2 Delivery O2 Flow Rate FiO2 10/12/17 15:11 36.8 77 18 123/78 (93) 91 Room Air 10/12/17 12:00 94 Room Air 10/12/17 11:55 37.0 85 18 158/85 General Appearance: no apparent distress, + obese Head: normocephalic, atraumatic Eyes: normal inspection, EOMI, sclerae normal ENT: normal ENT inspection, hearing grossly normal, pharynx normal Neck: supple, no adenopathy, no JVD, trachea midline Respiratory/Chest: chest non-tender, lungs clear, normal breath sounds, no respiratory distress, no accessory muscle use Cardiovascular: regular rate, rhythm, no edema, no gallop, no JVD, no murmur, normal peripheral pulses Abdomen/GI: normal bowel sounds, non tender, soft, no organomegaly Back: normal inspection, no CVA tenderness, no muscle spasm, normal range of motion Extremities/Musculoskelatal: normal inspection, no calf tenderness, normal capillary refill, no pedal edema, normal range of motion, pelvis stable Neurologic/Psych: arrow point attacher II-XII nml as tested, no motor/sensory deficits, alert, normal mood/affect, normal reflexes, oriented x 3 Skin: + pertinent finding (right second toe erythematous, non-tender, laceration, no drainage) Lymphatic: no adenopathy Diagnostics Laboratory Results Results Past 24 Hours Test 10/12/17 12:54 10/12/17 12:58 Range/Units White Blood Count 9.10 4.8-10.8 K/uL Red Blood Count 5.17 4.7-6.1 M/uL Hemoglobin 13.7 14.0-18.0 g/dL Hematocrit 41.6 42-52 % Mean Corpuscular Volume 80.5 80-100 fL Mean Corpuscular Hemoglobin 26.5 25-34 pg Mean Corpuscular Hemoglobin Concent 32.9 32-36 g/dl Platelet Count 220 130-400 K/uL Mean Platelet Volume 9.0 7.4-10.4 fL Neutrophils (%) (Auto) 71.9 % Lymphocytes (%) (Auto) 20.3 % Monocytes (%) (Auto) 6.6 % Eosinophils (%) (Auto) 0.9 % Basophils (%) (Auto) 0.2 % Neutrophils # (Auto) 6.54 1.4-6.5 K/uL Lymphocytes # (Auto) 1.85 1.2-3.4 K/uL Monocytes # (Auto) 0.60 0.11-0.59 K/uL Eosinophils # (Auto) 0.08 0-0.5 K/uL Basophils # (Auto) 0.02 0-0.2 K/uL RDW Standard Deviation 45.6 36.4-46.3 fL RDW Coefficient of Variation 15.6 11.5-14.5 % Immature Granulocyte % (Auto) 0.1 % Immature Granulocyte # (Auto) 0.01 0.00-0.02 K/uL Sodium Level 137 136-145 mmol/L Potassium Level 4.0 3.5-5.1 mmol/L Chloride Level 103 98-107 mmol/L Carbon Dioxide Level 27 21-32 mmol/L Anion Gap 7.0 3-11 mmol/L Blood Urea Nitrogen 18 7-18 mg/dl Creatinine 0.94 0.60-1.40 mg/dl Est Creatinine Clear Calc Drug Dose 117.3 ml/min Estimated GFR () 106.9 Estimated GFR (Non- 92.2 BUN/Creatinine Ratio 18.8 10-20 Random Glucose 72 70-99 mg/dl Calcium Level 8.7 8.5-10.1 mg/dl Prothrombin Time 10.6 9.0-12.0 SECONDS Prothromb Time International Ratio 1.0 0.9-1.1 Hepatitis C Antibody Screen NEG NEG CXR normal Normal EKG Impression Assessment and Plan 52 yo male with osteomyelitis of right 2nd toe - Osteomyelitis of right 2nd toe Vancomycin per pharmacy dosing PICC line ordered per podiatry for OR tomorrow hold heparin tonight for surgery tomorrow no pain control needed for time being surgical risk: low no h/o MO, CVA, DM, CKD or valve disease labs normal, CXR and EKG normal - Obesity, ADD, seasonal allergies: chronic issues, all stable DVT prophylaxis: Heparin Advanced Directives Existing Living Will: No Existing Power of Printed Products Assembler: No Resuscitation Status VTE Prophylaxis Will order VTE Prophylaxis: Yes Additional Copies To Ramses Wright D.O.
[2017-10-12] MEDS ORDERED: NURSING VERBAL MED ORDER ONE (21:00)
[2017-10-12] MEDS ORDERED: VANCOMYCIN IV 1,000 MG in SODIUM CHLORIDE 0.9% 250ML 250 ML IV SCH (21:00)
[2017-10-12] MEDS: VANCOMYCIN IV 1,500 MG in SODIUM CHLORIDE 0.9% 500ML 500 ML IV SCH (22:22)
[2017-10-12 23:16] VITALS: BP 121/76; PULSE 63; TEMP 36.6; O2SAT 93
[2017-10-13] VITALS (10 sets, daily range): BP systolic 120–131; BP diastolic 76–81; PULSE 61–66; TEMP 36.3–36.9; O2SAT 91–98
[2017-10-13] MEDS: VANCOMYCIN IV 1,500 MG in SODIUM CHLORIDE 0.9% 500ML 500 ML IV SCH ×2 (05:58→21:38)
[2017-10-13 06:10] LABS: BASO % 0.4 %; BASO ABS # 0.03 K/uL (0-0.2); EOS % 1.8 %; EOS ABS # 0.14 K/uL (0-0.5); HEMATOCRIT 40.6 % (42-52); HEMOGLOBIN 13.3 g/dL (14.0-18.0); IG# 0.01 K/uL (0.00-0.02); LYMPH % 25.3 %; LYMPH ABS # 1.94 K/uL (1.2-3.4); MEAN CELL VOLUME 81.4 fL (80-100); MEAN CORPUSCULAR HEMOGLOBIN 26.7 pg (25-34); MEAN CORPUSCULAR HGB CONC 32.8 g/dl (32-36); MEAN PLATELET VOLUME 9.1 fL (7.4-10.4); MONO % 8.1 %; MONO ABS # 0.62 K/uL (0.11-0.59); NEUT % 64.3 %; NEUT ABS # 4.94 K/uL (1.4-6.5); PLATELET COUNT 212 K/uL (130-400); RED CELL DISTRIBUTION WIDTH CV 16.1 % (11.5-14.5); RED CELL DISTRIBUTION WIDTH SD 47.8 fL (36.4-46.3); WHITE BLOOD COUNT 7.68 K/uL (4.8-10.8)
[2017-10-13 06:43] LABS: CALCIUM 8.7 mg/dl (8.5-10.1); CREATININE 0.88 mg/dl (0.60-1.40)
[2017-10-13] MEDS ORDERED: PROPOFOL IV EMULSION 10 MG/ML 20 ML VIAL IV ONE (07:58)
[2017-10-13] MEDS ORDERED: DEXAMETHASONE SOD INJ 4 MG/ML VIAL ONE (07:58)
[2017-10-13] MEDS ORDERED: FENTANYL CITRATE INJ 50 MCG/1 ML 2 ML VIAL ONE (07:58)
[2017-10-13] MEDS ORDERED: LIDOCAINE HCL 2% 2 ML VIAL (20MG/ML) ONE (07:58)
[2017-10-13] MEDS ORDERED: MIDAZOLAM HCL 1 MG/ML 2ML VIAL ONE (07:58)
[2017-10-13] MEDS ORDERED: ONDANSETRON INJ 2 MG/ML 2 ML VIAL ONE (07:58)
--- NOTE | 2017-10-13 08:13 | History & Physical Bridge Note ---
H&P Re-Evaluation Bridge Note: I have examined the patient, reviewed the History & Physical and in the interval since the performance of the History & Physical I have noted the following changes of clinical significance: No changes noted
[2017-10-13] MEDS ORDERED: BUPIVACAINE 0.5 % 5 MG/1 ML MPF 30ML VIAL ONE (08:20)
[2017-10-13] MEDS ORDERED: BACITRACIN 50000 UNIT VIAL ONE (08:44)
[2017-10-13] MEDS ORDERED: EpHEDrine SULFATE INJ 50 MG/ML AMP IV PRN (09:00)
[2017-10-13] MEDS ORDERED: ATROPINE SULFATE 0.1 MG/ML 5ML SYR IV PRN (09:00)
--- NOTE | 2017-10-13 09:56 | [facility] Post Operative Brief Note ---
Immediate Operative Summary Operative Date Oct 13, 2017. Pre-Operative Diagnosis 1. Osteomyelitis, distal phalanx, right second digit per MRI. 2. Cellulitis, right foot. 3. Charcot arthropathy. 4. Peripheral neuropathy, idiopathic. 5. Traumatic ulceration, right second toe secondary to peripheral neuropathy and new shoes. Post-Operative Diagnosis 1. Osteomyelitis, distal phalanx, right second digit per MRI. 2. Cellulitis, right foot. 3. Charcot arthropathy. 4. Peripheral neuropathy, idiopathic. 5. Traumatic ulceration, right second toe secondary to peripheral neuropathy and new shoes. Procedure(s) Performed Incision and drainage right foot bone cortex, amputation of right second digit Desyndactylization R2,3 digits, secondary closure surgical wound Surgeon Dr. Johanna Hinds, D.P.M. Gang Investigator Surgeon(s) None Estimated Blood Loss 5ml Findings Consistent with Post-Op Diagnosis Specimens Permanent A. Soft tissue and bone right foot second digit Culture 1. Right foot second digit 2. Right foot second digit post irrigation Anesthesia Type MAC
--- NOTE | 2017-10-13 10:06 | OPERATIVE REPORT ---
DATE OF OPERATION: 10/13/2017 PREOPERATIVE DIAGNOSES: 1. Cellulitis, right foot. 2. Peripheral neuropathy. 3. Ulceration, right second digit. 4. Syndactyly, right second and third digits. 5. Acute osteomyelitis, distal phalanx right second. POSTOPERATIVE DIAGNOSES: Same. PROCEDURE: 1. I&D right foot. 2. Amputation right second digit. 3. Desyndactyly right second and third digits distally. 4. Secondary closure of surgical wound. ANESTHESIA: IV with local sedation, preoperative block given, 30 mL 0.5% Marcaine plain. HEMOSTASIS: None. ESTIMATED BLOOD LOSS: 5 mL MATERIALS: 2-0 Vicryl, 3-0 and 4-0 nylon. INJECTABLES: None. HISTOPATHOLOGY: Soft tissue and bone sent. Two sets of deep cultures, 1 pre-irrigation, 1 post. COMPLICATIONS: None. The patient tolerated the procedure and anesthesia well without complications, transported to the recovery room with vital signs stable and neurovascular status intact. LONG-TERM PLAN: The patient will be readmitted to the floor. Continue empiric antibiotics. Will add Cipro orally for gram-negative coverage until deeper cultures are obtained. Recommend vancomycin 1500 mg IV q. 8 hours. Trough is pending for 10/13/2017 at 1:30. Goal of the trough is 15-20 mL. Recommend 6 weeks of IV antibiotics and possibly Cipro based on intraoperative cultures, stop date being 11/24/2017. PROCEDURE IN DETAIL: The patient was brought to the OR and placed on the OR table in supine position. Upon completion of IV sedation by the anesthesia department, a local field block was performed with 30 mL 0.5% Marcaine plain. The extremity was scrubbed, prepped and draped in usual aseptic fashion. There was no tourniquet DICTATION ENDS HERE I attest to the content of the Intraoperative Record and any orders documented therein. Any exception s are noted below.
--- NOTE | 2017-10-13 10:14 | OPERATIVE REPORT ---
DATE OF OPERATION: 10/13/2017 CONTINUATION Attention was directed to distal aspect of the right foot where an incision and drainage was performed to the deep bony cortex medially over the second digit down to bone. The left second digit was disarticulated at the interphalangeal joint DIP joint of the right second digit. Soft tissue was removed to desyndactylize the distal aspect of the second and third digits which was syndactyly complete the entire level. Plantar flap was preserved for derotation and coverage later. The fluoroscan was used to check the level of the amputation as well as any other involvement. There was good hard bone noted at the middle phalanx, was not resected past this level. The remaining tissue from the second was used as a flap as part of the desyndactyly repair. There was irrigation performed with 3000 units of bacitracin and normal saline and then closure began of the deep structures using 2-0 Vicryl subcutaneous sutures and skin margins were re-apposed and repaired. Secondary closure performed over the surgical wound using 3-0 and 4-0 nylon in a horizontal mattress interrupted skin tension lines and tension band technique over the syndactyly and surgical wound. Dry sterile compressive dressing consisting of Adaptic, 4 x 4's, Emmett and an Tan was applied. The patient was transported to the recovery room with vital signs stable and neurovascular status intact. Will continue empiric antibiotics, vancomycin and Cipro will be started. We will await trough results. Consider discharge once home IV is arranged. I attest to the content of the Intraoperative Record and any orders documented therein. Any exception s are noted below.
--- NOTE | 2017-10-13 10:24 | DIAGNOSTIC IMAGING REPORT ---
R FOOT MIN 3 VIEWS ROUTINE CLINICAL HISTORY: postop OSTEOMYELITIS COMPARISON: September 17, 2017 DISCUSSION: There are postsurgical changes of an amputation involving the distal phalanx of the second toe. There are prominent calcaneal spurs. There is sclerosis and erosive change involving the mid foot, possibly on a neuropathic basis. There are no acute fractures. IMPRESSION: 1. Postsurgical changes of an amputation involving the distal phalanx of the second toe 2. Persistent advanced arthritic changes with sclerosis and erosive changes involving the navicular and medial and middle cuneiform articulations. Electronically signed by: Wicho Rodríguez M.D. 10/13/2017 10:23 AM Dictated Date/Time: 10/13/2017 10:21 AM
--- NOTE | 2017-10-13 10:51 | Anesthesiology Progress Note ---
Anesthesia Post Op Note Date & Time Oct 13, 2017 at 10:51 Vital Signs Pain Intensity: 0 Vital Signs Past 12 Hours Date Time Temp Pulse Resp B/P (MAP) Pulse Ox O2 Delivery O2 Flow Rate FiO2 10/13/17 10:41 136/90 10/13/17 10:38 67 16 10/13/17 10:38 66 16 94 10/13/17 10:36 135/87 10/13/17 10:33 60 12 10/13/17 10:33 59 12 96 10/13/17 10:31 122/88 10/13/17 10:28 36.3 94 Nasal Cannula 3 10/13/17 10:28 60 12 92 10/13/17 10:28 59 12 10/13/17 10:27 62 15 92 10/13/17 10:27 62 15 10/13/17 10:26 134/94 10/13/17 10:22 58 18 94 10/13/17 10:22 56 18 10/13/17 10:21 122/83 10/13/17 10:17 60 13 10/13/17 10:17 59 13 96 10/13/17 10:16 144/95 10/13/17 10:12 63 20 10/13/17 10:12 62 20 95 10/13/17 10:11 62 20 10/13/17 10:11 63 20 138/86 96 10/13/17 10:06 59 14 10/13/17 10:06 60 14 138/89 98 10/13/17 10:02 133/86 10/13/17 10:01 36.4 61 14 133/86 96 Oxymask 10 10/13/17 10:01 61 20 10/13/17 10:01 61 20 99 10/13/17 07:19 36.3 66 18 127/76 (93) 92 Room Air 10/13/17 07:15 Room Air 10/13/17 00:05 94 Room Air 10/12/17 23:16 36.6 63 18 121/76 (91) 93 Room Air Notes Mental Status: alert / awake / arousable, participated in evaluation Pt Amnestic to Procedure: Yes Nausea / Vomiting: adequately controlled Pain: adequately controlled Airway Patency, RR, SpO2: stable & adequate BP & HR: stable & adequate Hydration State: stable & adequate Anesthetic Complications: no major complications apparent
--- NOTE | 2017-10-13 11:36 | DIAGNOSTIC IMAGING REPORT ---
INTRAOPERATIVE RIGHT SECOND TOE SINGLE VIEW CLINICAL HISTORY: Osteomyelitis COMPARISON STUDY: MRI dated 10/08/2017 FINDINGS: 2 seconds of fluoroscopic time was utilized. A single fluoroscopic spot image demonstrates amputation of the distal phalanx of the right second toe. IMPRESSION: Intraoperative radiograph demonstrating amputation of the distal phalanx of the second toe. Electronically signed by: Wicho Rodríguez M.D. 10/13/2017 11:34 AM Dictated Date/Time: 10/13/2017 11:33 AM
[2017-10-13] MEDS: CIPROFLOXACIN 500 MG TAB PO SCH ×2 (12:50→21:09)
[2017-10-13] MEDS ORDERED: VANCOMYCIN TROUGH ONE (13:30)
[2017-10-13] MEDS: HEPARIN SOD 5000 UNIT/0.5 ML CARP SQ SCH ×2 (14:24→21:41)
--- NOTE | 2017-10-13 14:43 | Pharmacy Progress Note ---
Pharmacy Antibiotic Prog Note Date of Service Oct 13, 2017. Subjective The patient is currently receiving vancomycin 1500 mg IV every 8 hours. The patient is currently on day # 2 of vancomycin IV therapy. Objective Height (Feet): 5 Height (Inches): 7.00 Weight (Kilograms): 129.000 Lab Results (24hrs): Test 10/13/17 05:49 10/13/17 10:15 10/13/17 13:19 White Blood Count 7.68 K/uL (4.8-10.8) Red Blood Count 4.99 M/uL (4.7-6.1) Hemoglobin 13.3 g/dL (14.0-18.0) Hematocrit 40.6 % (42-52) Mean Corpuscular Volume 81.4 fL (80-100) Mean Corpuscular Hemoglobin 26.7 pg (25-34) Mean Corpuscular Hemoglobin Concent 32.8 g/dl (32-36) Platelet Count 212 K/uL (130-400) Mean Platelet Volume 9.1 fL (7.4-10.4) Neutrophils (%) (Auto) 64.3 % Lymphocytes (%) (Auto) 25.3 % Monocytes (%) (Auto) 8.1 % Eosinophils (%) (Auto) 1.8 % Basophils (%) (Auto) 0.4 % Neutrophils # (Auto) 4.94 K/uL (1.4-6.5) Lymphocytes # (Auto) 1.94 K/uL (1.2-3.4) Monocytes # (Auto) 0.62 K/uL (0.11-0.59) Eosinophils # (Auto) 0.14 K/uL (0-0.5) Basophils # (Auto) 0.03 K/uL (0-0.2) RDW Standard Deviation 47.8 fL (36.4-46.3) RDW Coefficient of Variation 16.1 % (11.5-14.5) Immature Granulocyte % (Auto) 0.1 % Immature Granulocyte # (Auto) 0.01 K/uL (0.00-0.02) Sodium Level 137 mmol/L (136-145) Potassium Level 4.0 mmol/L (3.5-5.1) Chloride Level 103 mmol/L (98-107) Carbon Dioxide Level 28 mmol/L (21-32) Anion Gap 6.0 mmol/L (3-11) Blood Urea Nitrogen 18 mg/dl (7-18) Creatinine 0.88 mg/dl (0.60-1.40) Est Creatinine Clear Calc Drug Dose 125.3 ml/min Estimated GFR () 113.7 Estimated GFR (Non- 98.1 BUN/Creatinine Ratio 20.2 (10-20) Random Glucose 84 mg/dl (70-99) Calcium Level 8.7 mg/dl (8.5-10.1) Bedside Glucose 87 mg/dl (70-99) Vancomycin Level Trough 26.0 mcg/ml (SEE COMMENT) Assessment & Plan Assessment * 52 yo M with osteomyelitis of R 2nd toe s/p amputation and I&D today (10/13). * Intra-operative cultures pending. History of MSSA in R foot ulcer July 2017. * Ciprofloxacin added to vancomycin regimen, which will provide adequate Gram negative coverage. Regimen of vancomycin plus ciprofloxacin lacks anaerobic coverage, but this is OK as long as the patient is improving. * SCr at/near baseline Vancomycin * Goal vancomycin trough 15-20 mcg/mL * Checked early trough as initial dose selected was aggressive due to indication. Level is supratherapeutic to 26 mcg/mL - this was not prolonged as patient has only received 2 doses of maintenance vancomycin and the dose due after the trough was stopped immediately prior to administration * Will continue current dose as it is on the less aggressive side of 11.6 mg/kg but will significantly lengthen interval to address supratherapeutic level * Will once again check an early trough to ensure patient does not accumulate further Plan * Decrease vancomycin 1500 mg IV q12h * Trough 10/14 @ [id number] Pharmacy will continue to follow and will adjust dose/frequency as necessary. Thank you
--- NOTE | 2017-10-13 20:27 | Progress Note ---
Subjective Date of Service: Oct 13, 2017. Subjective Pt evaluation today including: conversation w/ patient, physical exam, lab review, conversation w/ career development consultant, review of inpatient medication list Pain: no pain PO Intake: tolerating food after OR today Voiding: no voiding problems patient feels fine, no complaints surgery went well, no complications reviewed Dr. Valero Review of Systems All Other Systems: Reviewed and Negative Medications Current Inpatient Medications Medications (Trade) Dose Ordered Sig/Jonathan Route Start Time Stop Time Status Last Admin Dose Admin Heparin Sodium (Porcine) (Heparin Sq 5000 Unit/0.5ml) 5,000 unit Q8 SQ 10/12/17 14:00 11/11/17 13:59 Future hold 10/13/17 14:24 5,000 UNIT Acetaminophen (Tylenol Tab) 650 mg Q4H PRN PO 10/12/17 12:45 11/11/17 12:44 Polyethylene (Miralax Powder Packet) 17 gm DAILY PRN PO 10/12/17 12:45 11/11/17 12:44 Ondansetron HCl (Zofran Inj) 4 mg Q6H PRN IV 10/12/17 12:45 11/11/17 12:44 Miscellaneous Information (Consult) 1 ea UD PRN N/A 10/12/17 12:45 11/11/17 12:44 Ciprofloxacin (Cipro Tab) 500 mg BID PO 10/13/17 09:00 10/23/17 08:59 10/13/17 12:50 500 MG Vancomycin HCl 1500 mg/Sodium Chloride 530 ml @ 200 mls/hr Q12@1000,2200 IV 10/13/17 22:00 10/22/17 13:59 Objective Vital Signs Date Time Temp Pulse Resp B/P (MAP) Pulse Ox O2 Delivery O2 Flow Rate FiO2 10/13/17 15:30 36.3 66 18 125/78 (94) 91 Room Air 10/13/17 15:15 Room Air 10/13/17 14:00 63 18 120/80 (93) 95 Nasal Cannula 2.0 10/13/17 12:53 36.6 65 16 131/81 (98) 94 Nasal Cannula 2.0 10/13/17 12:00 61 17 130/81 (97) 98 Nasal Cannula 2.0 10/13/17 11:03 92 Nasal Cannula 2.0 10/13/17 11:00 36.3 61 16 129/81 (97) 92 Nasal Cannula 2.0 10/13/17 10:41 136/90 10/13/17 10:38 67 16 10/13/17 10:38 66 16 94 10/13/17 10:36 135/87 10/13/17 10:33 60 12 10/13/17 10:33 59 12 96 10/13/17 10:31 122/88 10/13/17 10:28 36.3 94 Nasal Cannula 3 10/13/17 10:28 60 12 92 10/13/17 10:28 59 12 10/13/17 10:27 62 15 92 10/13/17 10:27 62 15 10/13/17 10:26 134/94 10/13/17 10:22 58 18 94 10/13/17 10:22 56 18 10/13/17 10:21 122/83 10/13/17 10:17 60 13 10/13/17 10:17 59 13 96 10/13/17 10:16 144/95 10/13/17 10:12 63 20 10/13/17 10:12 62 20 95 10/13/17 10:11 62 20 10/13/17 10:11 63 20 138/86 96 10/13/17 10:06 59 14 10/13/17 10:06 60 14 138/89 98 10/13/17 10:02 133/86 10/13/17 10:01 36.4 61 14 133/86 96 Oxymask 10 10/13/17 10:01 61 20 10/13/17 10:01 61 20 99 10/13/17 07:19 36.3 66 18 127/76 (93) 92 Room Air 10/13/17 07:15 Room Air 10/13/17 00:05 94 Room Air 10/12/17 23:16 36.6 63 18 121/76 (91) 93 Room Air 10/12/17 19:40 Room Air Physical Exam General Appearance: no apparent distress, + obese Eyes: normal inspection, EOMI, sclerae normal ENT: normal ENT inspection, hearing grossly normal, pharynx normal Neck: supple, no adenopathy, no JVD, trachea midline Respiratory/Chest: chest non-tender, lungs clear, normal breath sounds, no respiratory distress, no accessory muscle use Cardiovascular: regular rate, rhythm, no edema, no gallop, no JVD, no murmur Abdomen: normal bowel sounds, non tender, soft, no organomegaly Extremities: normal range of motion, non-tender, normal inspection, no pedal edema, no calf tenderness, pelvis stable Neurologic/Psychiatric: academic tutor II-XII nml as tested, no motor/sensory deficits, alert, normal mood/affect, oriented x 3 Skin: + pertinent finding (right second toe wrapped, no obvious drainage) Laboratory Results Last 24 Hours Test 10/13/17 05:49 10/13/17 10:15 10/13/17 13:19 White Blood Count 7.68 K/uL Red Blood Count 4.99 M/uL Hemoglobin 13.3 g/dL Hematocrit 40.6 % Mean Corpuscular Volume 81.4 fL Mean Corpuscular Hemoglobin 26.7 pg Mean Corpuscular Hemoglobin Concent 32.8 g/dl Platelet Count 212 K/uL Mean Platelet Volume 9.1 fL Neutrophils (%) (Auto) 64.3 % Lymphocytes (%) (Auto) 25.3 % Monocytes (%) (Auto) 8.1 % Eosinophils (%) (Auto) 1.8 % Basophils (%) (Auto) 0.4 % Neutrophils # (Auto) 4.94 K/uL Lymphocytes # (Auto) 1.94 K/uL Monocytes # (Auto) 0.62 K/uL Eosinophils # (Auto) 0.14 K/uL Basophils # (Auto) 0.03 K/uL RDW Standard Deviation 47.8 fL RDW Coefficient of Variation 16.1 % Immature Granulocyte % (Auto) 0.1 % Immature Granulocyte # (Auto) 0.01 K/uL Sodium Level 137 mmol/L Potassium Level 4.0 mmol/L Chloride Level 103 mmol/L Carbon Dioxide Level 28 mmol/L Anion Gap 6.0 mmol/L Blood Urea Nitrogen 18 mg/dl Creatinine 0.88 mg/dl Est Creatinine Clear Calc Drug Dose 125.3 ml/min Estimated GFR () 113.7 Estimated GFR (Non- 98.1 BUN/Creatinine Ratio 20.2 Random Glucose 84 mg/dl Calcium Level 8.7 mg/dl Bedside Glucose 87 mg/dl Vancomycin Level Trough 26.0 mcg/ml Assessment and Plan 52 yo male with osteomyelitis of right 2nd toe - Osteomyelitis of right 2nd toe Vancomycin per pharmacy dosing PICC line ordered per podiatry s/p Incision and drainage right foot bone cortex, amputation of right second digit Desyndactylization R2,3 digits, secondary closure surgical wound tolerated procedure well, no pain, no dyspnea, eating well labs and vitals stable - Obesity, ADD, seasonal allergies: chronic issues, all stable DVT prophylaxis: Heparin
[2017-10-14 03:42] VITALS: BP 146/81; PULSE 78; TEMP 36.3; O2SAT 91
[2017-10-14] MEDS: HEPARIN SOD 5000 UNIT/0.5 ML CARP SQ SCH ×3 (06:11→21:18)
[2017-10-14 06:57] LABS: CREATININE 0.95 mg/dl (0.60-1.40)
[2017-10-14 07:47] VITALS: BP 119/80; PULSE 74; TEMP 36.4; O2SAT 94
[2017-10-14] MEDS: CIPROFLOXACIN 500 MG TAB PO SCH ×2 (08:54→21:10)
[2017-10-14] MEDS: VANCOMYCIN IV 1,500 MG in SODIUM CHLORIDE 0.9% 500ML 500 ML IV SCH ×2 (09:49→21:19)
--- NOTE | 2017-10-14 10:43 | Anesthesiology Progress Note ---
Anesthesia Post Op Note Date & Time Oct 14, 2017 at 10:43 Vital Signs Pain Intensity: 0.0 Vital Signs Past 12 Hours Date Time Temp Pulse Resp B/P (MAP) Pulse Ox O2 Delivery O2 Flow Rate FiO2 10/14/17 08:00 Room Air 2.0 10/14/17 07:47 36.4 74 16 119/80 (93) 94 Room Air 10/14/17 03:42 36.3 78 17 146/81 (102) 91 Room Air 10/13/17 23:50 91 Room Air 2.0 10/13/17 23:06 36.9 66 16 130/76 (94) 91 Room Air Notes Mental Status: alert / awake / arousable, participated in evaluation Pt Amnestic to Procedure: Yes Nausea / Vomiting: adequately controlled Pain: adequately controlled Airway Patency, RR, SpO2: stable & adequate BP & HR: stable & adequate Hydration State: stable & adequate Anesthetic Complications: no major complications apparent
--- NOTE | 2017-10-14 13:40 | BLINK REPORT ---
FOLLOWUP NOTE SUBJECTIVE: The patient is seen at bedside, postoperative day #1. Denies pain, eating and voiding well without problems, and currently ambulating in surgery shoe. OBJECTIVE: VITAL SIGNS: Stable and afebrile. GENERAL: Op-Site to the right second digit shows mild redness. Sutures intact. No active drainage. Good cap refill noted to the digit distally and the desyndactylization of the right 2nd and 3rd digits appears to be well vascularized. LABORATORY DATA: Intraoperative cultures from the OR pending. History of MSSA July 2017, blood culture negative, trough levels high on the vancomycin level. IMPRESSION: 1. Status post incision and drainage, right foot; amputation of right second digit with secondary closure wound and desyndactylization of right second and third digits, postoperative day #1. 2. Cellulitis, right foot, improved. 3. History of osteomyelitis. 4. Peripheral neuropathy. TREATMENT: 1. Vancomycin dose adjusted by pharmacy, currently receiving vancomycin 1500 mg q. 12, trough will be rechecked tomorrow morning and will continue at current dosing. 2. Continue Cipro 500 mg b.i.d. 3. Awaiting discharge per vancomycin and Cipro, hopefully tomorrow. Dressing change at bedside, may ambulate with surgery shoe.
--- NOTE | 2017-10-14 14:40 | Progress Note ---
Subjective Date of Service: Oct 14, 2017. Subjective Pt evaluation today including: conversation w/ patient, physical exam, conversation w/ security system sales consultant, review of inpatient medication list Pain: no pain PO Intake: adequate Voiding: no voiding problems patient doing well, eating well, no chest pain, no difficulty breathing discussed with Dr. Hinds, plan to discharge tomorrow Review of Systems All Other Systems: Reviewed and Negative Medications Current Inpatient Medications Medications (Trade) Dose Ordered Sig/Jonathan Route Start Time Stop Time Status Last Admin Dose Admin Heparin Sodium (Porcine) (Heparin Sq 5000 Unit/0.5ml) 5,000 unit Q8 SQ 10/12/17 14:00 11/11/17 13:59 Future hold 10/14/17 13:57 5,000 UNIT Acetaminophen (Tylenol Tab) 650 mg Q4H PRN PO 10/12/17 12:45 11/11/17 12:44 Polyethylene (Miralax Powder Packet) 17 gm DAILY PRN PO 10/12/17 12:45 11/11/17 12:44 Ondansetron HCl (Zofran Inj) 4 mg Q6H PRN IV 10/12/17 12:45 11/11/17 12:44 Miscellaneous Information (Consult) 1 ea UD PRN N/A 10/12/17 12:45 11/11/17 12:44 Ciprofloxacin (Cipro Tab) 500 mg BID PO 10/13/17 09:00 10/23/17 08:59 10/14/17 08:54 500 MG Vancomycin HCl 1500 mg/Sodium Chloride 530 ml @ 200 mls/hr Q12@1000,2200 IV 10/13/17 22:00 10/22/17 13:59 10/14/17 09:49 200 MLS/HR Objective Vital Signs Date Time Temp Pulse Resp B/P (MAP) Pulse Ox O2 Delivery O2 Flow Rate FiO2 10/14/17 08:00 Room Air 2.0 10/14/17 07:47 36.4 74 16 119/80 (93) 94 Room Air 10/14/17 03:42 36.3 78 17 146/81 (102) 91 Room Air 10/13/17 23:50 91 Room Air 2.0 10/13/17 23:06 36.9 66 16 130/76 (94) 91 Room Air 10/13/17 15:30 36.3 66 18 125/78 (94) 91 Room Air 10/13/17 15:15 Room Air Physical Exam General Appearance: no apparent distress, + obese Eyes: normal inspection, EOMI, sclerae normal ENT: normal ENT inspection, hearing grossly normal, pharynx normal Neck: supple, no adenopathy, no JVD, trachea midline Respiratory/Chest: chest non-tender, lungs clear, normal breath sounds, no respiratory distress, no accessory muscle use Cardiovascular: regular rate, rhythm, no edema, no gallop, no JVD, no murmur Abdomen: normal bowel sounds, non tender, soft, no organomegaly Extremities: normal range of motion, non-tender, normal inspection, no pedal edema, no calf tenderness, pelvis stable Neurologic/Psychiatric: cco & president II-XII nml as tested, no motor/sensory deficits, alert, normal mood/affect, oriented x 3 Skin: + pertinent finding (right 2nd toe excised, wound dressed) Laboratory Results Last 24 Hours Test 10/14/17 06:11 Creatinine 0.95 mg/dl Est Creatinine Clear Calc Drug Dose 116.1 ml/min Estimated GFR () 105.5 Estimated GFR (Non- 91.0 Assessment and Plan 52 yo male with osteomyelitis of right 2nd toe - Osteomyelitis of right 2nd toe Vancomycin per pharmacy dosing PICC line ordered per podiatry s/p Incision and drainage right foot bone cortex, amputation of right second digit Desyndactylization R2,3 digits, secondary closure surgical wound POD #2 tolerated procedure well, no pain, no dyspnea, eating well labs and vitals stable discussed with Dr. Hinds, plan to d/c tomorrow wound culture with Staph and Pseudomonas, rare numbers, likely normal skin sarah beth, no sensitivity to follow - Obesity, ADD, seasonal allergies: chronic issues, all stable DVT prophylaxis: Heparin plan to d/c tomorrow on IV Vancomycin
[2017-10-14 16:19] VITALS: BP 123/69; PULSE 72; TEMP 36.9
[2017-10-14] MEDS ORDERED: VANCOMYCIN TROUGH ONE (21:30)
[2017-10-14 22:50] VITALS: BP 145/75; PULSE 67; TEMP 36.5; O2SAT 95
[2017-10-15 00:52] VITALS: O2SAT 95
[2017-10-15] MEDS: HEPARIN SOD 5000 UNIT/0.5 ML CARP SQ SCH ×2 (06:04→14:00)
[2017-10-15 07:42] VITALS: BP 132/84; PULSE 67; TEMP 36.4; O2SAT 92
[2017-10-15] MEDS ORDERED: CEFEPIME IV 2,000 MG in SYRINGE 7.5 ML IV SCH (08:00)
--- NOTE | 2017-10-15 08:16 | PROGRESS NOTE ---
DATE: 10/15/2017 SUBJECTIVE: The patient is seen at bedside, denying any pain, ambulating well with surgery shoe, eating and voiding well. OBJECTIVE: Vital signs stable. Lower extremity exam moderate edema still noted over the Op-Site, redness improved. Sutures intact. No active drainage. OR cultures showing pseudomonas and staph aureus. Vancomycin level is pending for 9:30 this morning, vancomycin trough. IMPRESSION: 1. Postoperative day #2 status post amputation secondary to osteo. 2. Peripheral neuropathy. 3. Cellulitis, improved, right foot. TREATMENT: We will discontinue Cipro. We will add cefepime 2 grams q. 12 hours to the patient's regimen, stop date 11/24/2017. Vancomycin current dose is 1500 grams q. 12 if trough is therapeutic. It is okay to discharge home today on both vancomycin and cefepime. The patient will be followed in 1 week in my office. Will continue to ambulate in a surgery shoe. Will have renal function and vancomycin trough every third day and CBC and ESR drawn weekly.
[2017-10-15] MEDS ORDERED: VANCOMYCIN TROUGH ONE (09:30)
[2017-10-15] MEDS: VANCOMYCIN IV 1,500 MG in SODIUM CHLORIDE 0.9% 500ML 500 ML IV SCH (10:21)
[2017-10-15] MEDS ORDERED: METH40CA PO (11:50)
[2017-10-15] MEDS ORDERED: VANC1INJ IV (13:42)
[2017-10-15] MEDS ORDERED: CEFE1INJ3 IV (13:42)
--- NOTE | 2017-10-15 13:44 | Pharmacy Progress Note ---
Pharmacy Antibiotic Prog Note Date of Service Oct 15, 2017. Subjective The patient is currently receiving VANCOMYCIN 1500mg IV every 12 hours. The patient is currently on day # 4 of VANCOMYCIN IV therapy. Objective Height (Feet): 5 Height (Inches): 7.00 Weight (Kilograms): 129.000 Levels: Item Value Date Time Vancomycin Level Trough 14.5 mcg/ml 10/15/17 0920 Lab Results (24hrs): Test 10/15/17 09:20 Vancomycin Level Trough 14.5 mcg/ml (SEE COMMENT) Micro Results: * SEE EMR Recent Pertinent Medications Item Value Date Time Cefepime HCl 2000 20 ml @ 5 mls/min 10/15/17 0800 mg/Syringe Q12H/IV 10/15/17 0814 Assessment & Plan 52yo male s/p amputation of R 2nd toe receiving VANCOMYCIN / CEFEPIME for cellulitis of the right foot. Renal function is stable. VANCOMYCIN: * Patient has been receiving VANCOMYCIN 1500mg IV q12gh. * Trough level drawn prior to 1000 dose today = 14.5 mcg/mL. * This drug level is Therapeutic. * Continue VANCOMYCIN 1500mg IV every 12 hours. * Goal trough level estimate: between 15 - 20 mcg/mL, however anticipate some accumulation as time goes on. * Outpatient f/u per Dr Hinds. Patient to continue on VANC/CEFEPIME upon discharge despite MSSA in culture. Pharmacy will continue to follow and will adjust dose/frequency as necessary. Thank you
--- NOTE | 2017-10-15 13:46 | Discharge Instructions ---
Discharge Instructions Date of Service Oct 15, 2017. Admission Reason for Admission: Toe Osteomyelitis Discharge Discharge Diagnosis / Problem: right second toe osteomyelitis, s/p amputation Discharge Goals Goal(s): Improve function, Improve disease control Activity Recommendations Activity Limitations: resume your previous activity . Instructions / Follow-Up Instructions / Follow-Up Medications: - VANCOMYCIN: every 12 hours, dosing may be adjusted per Dr. Hinds - CEFEPIME: every 12 hours, dosing may be adjusted per Dr. Hinds Osteomyelitis of the right second toe, s/p amputation Dr. Hinds would like you to wear the shoe as instructed to allow toe to heal please follow up in her office in 1 week will have Creatinine and Vancomycin trough level every three days CBC and ESR every week Current Hospital Diet Patient's current hospital diet: Regular Diet Discharge Diet Recommended Diet: Regular Diet Procedures Procedures Performed: Incision and drainage right foot bone cortex, amputation of right second digit Desyndactylization R2,3 digits, secondary closure surgical wound Pending Studies Studies pending at discharge: no Medical Emergencies . Who to Call and When: Medical Emergencies: If at any time you feel your situation is an emergency, please call 911 immediately. . Non-Emergent Contact Non-Emergency issues call your: Specialist (Heel Seat Filler) Call Non-Emergent contact if: you have a fever, your pain is not controlled, wound has increased drainage, wound has increased redness, wound has increased pain, you have any medication questions . . "Provider Documentation" section prepared by Oziel Mckinley. . [place] Drug Monitoring Program Search Results: no issues identified
[2017-10-15 13:54] VITALS: BP 132/84; PULSE 67; TEMP 36.4; O2SAT 92
--- NOTE | 2017-10-16 08:20 | Discharge Summary ---
Discharge Summary Date of Service Oct 16, 2017. Discharge Summary Admission Date: Oct 12, 2017 at 11:17 Discharge Date: Oct 15, 2017 Discharge Disposition: Home with services Principal Diagnosis: Right toe osteomyelitis Problems/Secondary Diagnoses: Obesity ADD Immunizations: Have You Had Influenza Vaccine: Yes Influenza Vaccine Date: May 04, 2011 History of Tetanus Vaccine?: Yes Tetanus Immunization Date: December 03, 2011 History of Pneumococcal: No History of Hepatitis B Vaccine: Unknown Procedures: s/p Incision and drainage right foot bone cortex, amputation of right second digit Desyndactylization R2,3 digits, secondary closure surgical wound Consultations: Podiatry, Dr. Hinds Medication Reconciliation New Medications: Cefepime Hcl (Cefepime) 1 Gm Inj 1 GM IV Q12 for 42 Days, DOSE 0 Refills Vancomycin Hcl (Vancomycin Hcl) 750 Mg Inj 1500 MG IV Q12 for 42 Days, DOSE 0 Refills Continued Medications: Methylphenidate Hcl (Ritalin La) 40 Mg Cap 40 MG PO QAM Discharge Exam Patient without pain, consented for PICC line, placed in the afternoon, discussed with Dr. Hinds, will set up home antibiotics for Vancomycin and Cefepime, follow up with Dr. Hinds next week. Review of Systems: Constitutional: No fever, No chills, No sweats, No weight loss, No weakness , No fatigue, No problem reported Eyes: No worsening of vision, No eye pain, No redness, No discharge, No diplopia, No problem reported ENT: No hearing loss, No unusual epistaxis, No nasal symptoms, No sore throat, No tinnitus, No dental problems, No trouble swallowing, No problem reported Respiratory: No cough, No sputum, No wheezing, No shortness of breath, No dyspnea on exertion, No dyspnea at rest, No hemoptysis, No problem reported Cardiovascular: No chest pain, No orthopnea, No PND, No edema, No claudication, No palpitations, No problem reported Abdomen: No pain, No nausea, No vomiting, No diarrhea, No constipation, No GI bleeding, No problem reported Musculoskeletal: No joint pain, No muscle pain, No swelling, No calf pain, No problem reported Genitourinary - Male: No hematuria, No dysuria, No urinary frequency, No urinary urgency Neurologic: No memory loss, No paralysis, No weakness, No numbness/tingling , No vertigo, No balance problems, No problem reported Psychiatric: No depression symptoms, No anhedonism, No anxiety, No insomnia , No substance abuse, No problem reported Endocrine: No fatigue, No excessive thirst, No excessive urination, No problem reported Hematologic / Lymphatic: No abnormal bleeding/bruising, No clotting problems , No swollen lymph nodes, No night sweats, No problem reported Integumentary: No rash, No itch, No new/changing skin lesions, No color change, No bleeding, No problem reported Physical Exam: General Appearance: WD/WN, no apparent distress Eyes: normal inspection, EOMI, sclerae normal ENT: normal ENT inspection, hearing grossly normal, pharynx normal Neck: supple, no adenopathy, no JVD, trachea midline Respiratory/Chest: chest non-tender, lungs clear, normal breath sounds, no respiratory distress, no accessory muscle use Cardiovascular: regular rate, rhythm, no edema, no gallop, no JVD, no murmur , normal peripheral pulses Abdomen / GI: normal bowel sounds, non tender, soft, no organomegaly Extremities: normal inspection, no calf tenderness, normal capillary refill , no pedal edema, normal range of motion, pelvis stable Neurologic/Psychiatric: preconstruction manager II-XII nml as tested, no motor/sensory deficits , alert, normal mood/affect, normal reflexes, oriented x 3 Skin: normal color, warm/dry, no rash, + pertinent finding (right toe amputation wound clean, dry, dressed) Lymphatic: no adenopathy Hospital Course 52 yo male with osteomyelitis of right 2nd toe - Osteomyelitis of right 2nd toe Vancomycin per pharmacy dosing, will d/c on 1500mg q12 added Cefepime 1gm q12 per podiatry s/p Incision and drainage right foot bone cortex, amputation of right second digit Desyndactylization R2,3 digits, secondary closure surgical wound POD #3 tolerated procedure well, no pain, no dyspnea, eating well labs and vitals stable will follow up with Dr. Hinds next week check Vancomycin trough and Creatinine every three days check CBC and ESR every week - Obesity, ADD, seasonal allergies: chronic issues, all stable DVT prophylaxis: Heparin Total Time Spent: Less than 30 minutes This includes examination of the patient, discharge planning, medication reconciliation, and communication with other providers. Discharge Instructions Please refer to the electronic Patient Visit Report (Discharge Instructions) for additional information. Follow-Up Dr. Hinds next week Additional Copies To Johanna Hinds D.P.M.
[2017-10-16] MEDS ORDERED: RANI150C4 PO (12:44)
[2017-10-16] MEDS ORDERED: SNG10 PO (12:44)
[2017-10-18] MEDS ORDERED: LEVO1TAB35 PO (08:08)
== END 2017-10-15 16:13 | disposition home or self-care (01) | DRG 504 ==
LOC: C.MSW 11:17
PROVIDERS: ADMIT Internal Medicine; ATTEND Internal Medicine
PROC: 0H8MXZZ Division of Right Foot Skin, External Approach (ICD-10-PCS; principal; 2017-10-13 08:45)
PROC: 0Y6R0Z3 Detachment at Right 2nd Toe, Low, Open Approach (ICD-10-PCS; principal; 2017-10-13 08:45)
PROC: 02HV33Z Insertion of Infusion Device into Superior Vena Cava, Percutaneous Approach (ICD-10-PCS; 2017-10-15)
DX: M86.9 Osteomyelitis, unspecified (principal); L03.115 Cellulitis of right lower limb; L97.819 Non-pressure chronic ulcer of other part of right lower leg with unspecified severity; Z68.41 Body mass index [BMI] 40.0-44.9, adult; B95.61 Methicillin susceptible Staphylococcus aureus infection as the cause of diseases classified elsewhere; B96.5 Pseudomonas (aeruginosa) (mallei) (pseudomallei) as the cause of diseases classified elsewhere; M14.671 Charcot's joint, right ankle and foot; Q70.31 Webbed toes, right foot; G60.9 Hereditary and idiopathic neuropathy, unspecified; F90.9 Attention-deficit hyperactivity disorder, unspecified type; F81.9 Developmental disorder of scholastic skills, unspecified; E66.9 Obesity, unspecified; Z89.421 Acquired absence of other right toe(s); Z79.899 Other long term (current) drug therapy; Z91.041 Radiographic dye allergy status; Z91.013 Allergy to seafood

== ENCOUNTER 2017-10-15 18:00 | Emergency (ER) | payer OTHER ==
[~2017-10-15] VITALS: Ht 170.2 cm; Wt 129.0 kg
[~2017-10-15 18:00] MED LIST changes: -GADAVIST IV PRN; -RANI150C4 PO; -SNG10 PO
[2017-10-15 18:19] VITALS: TEMP 37; Ht 170.2 cm; Wt 129.0 kg
[2017-10-15] MEDS ORDERED: CEFEPIME IV 2,000 MG in DEXTROSE 5% 100ML 100 ML IV STA (18:41)
[2017-10-15] MEDS ORDERED: VANCOMYCIN IV 1,500 MG in SODIUM CHLORIDE 0.9% 500ML 500 ML IV STA (18:42)
[2017-10-15] MEDS ORDERED: VANCOMYCIN CONSULT ACTIVE PRN (18:45)
[2017-10-15 21:56] VITALS: BP 139/78; PULSE 80; O2SAT 92
--- NOTE | 2017-10-15 22:59 | EMERGENCY ROOM VISIT NOTE ---
History Report prepared by Jone: Toro Norris Under the Supervision of: Dr. Jerson Steven D.O. First contact with patient: 18:26 Chief Complaint: NEED IV START Stated Complaint: NEEDS ANTIBIOTIC History of Present Illness The patient is a 52 year old male who presents to the Emergency Room with complaints of a persistent need for IV antibiotics today. Per the patient's father, the patient was discharged today after having an operation on his right foot for osteomyelitis of his toe with instructions on how to administer the antibiotics through the PICC line. The patient's parents say that they are unable to administer the antibiotics, so they came here for help. The patient denies any complaints, including any right arm pain, cough, runny nose, chest pain, or abdominal pain. The patient states that the PICC line is in his right arm, and it was put in today. Source of History: patient, parent Onset: Today Position: arm (right), other (global) Symptom Intensity: parents don't know how to put in antibiotics through PICC line Quality: other (need for IV antibiotics) Timing: other (persistent need) Associated Symptoms: No cough (or runny nose), No chest pain, No abdominal pain Note: Denies right arm pain. Review of Systems See HPI for pertinent positives & negatives. A total of 10 systems reviewed and were otherwise negative. Past Medical & Surgical Medical Problems: (1) Osteomyelitis of toe Family History Diabetes mellitus FH: cancer Heart disease Social History Smoking Status: Never Smoker Marital Status: single Occupation Status: unemployed Current/Historical Medications Scheduled Cefepime Hcl (Cefepime), 1 GM IV Q12 Methylphenidate Hcl (Ritalin La), 40 MG PO QAM Vancomycin Hcl (Vancomycin Hcl), 1,500 MG IV Q12 Allergies Coded Allergies: Povidone Iodine (Verified Allergy, Intermediate, OTHER, 04/01/17) SWELLING Shellfish (Verified Allergy, Unknown, RASH, 03/03/17) Physical Exam Vital Signs Date Time Temp Pulse Resp B/P (MAP) Pulse Ox O2 Delivery O2 Flow Rate FiO2 10/15/17 21:56 80 16 139/78 92 10/15/17 21:18 80 16 139/78 92 Room Air 10/15/17 18:19 37.0 83 18 144/85 93 Room Air Physical Exam GENERAL: Sitting up in bed, alert, well appearing, well nourished, no distress, non-toxic EYE EXAM: normal conjunctiva. OROPHARYNX: no exudate, no erythema, lips, buccal mucosa, and tongue normal and mucous membranes are moist NECK: supple, no nuchal rigidity, no adenopathy, non-tender LUNGS: Clear to auscultation. Normal chest wall mechanics HEART: no murmurs, S1 normal and S2 normal ABDOMEN: abdomen soft, non-tender, normo-active bowel sounds, no masses, no rebound or guarding. BACK: Back is symmetrical on inspection and there is no deformity, no midline tenderness, no CVA tenderness. SKIN: no rashes and no bruising UPPER EXTREMITIES: upper extremities are grossly normal. LOWER EXTREMITIES: Right lower foot is wrapped. Warm without erythema. Bandage was not removed. NEURO EXAM: Awake, alert, following commands, moving all extremities. Medical Decision & Procedures Medications Administered Medications (Trade) Dose Ordered Sig/Jonathan Route Start Time Stop Time Status Last Admin Dose Admin Cefepime HCl 2000 mg/Dextrose 122 ml @ 200 mls/hr NOW STAT IV 10/15/17 18:41 10/15/17 19:17 DC 10/15/17 19:18 200 MLS/HR Vancomycin HCl 1500 mg/Sodium Chloride 530 ml @ 200 mls/hr ONE STAT IV 10/15/17 18:42 10/15/17 21:20 DC 10/15/17 19:18 200 MLS/HR Heparin Sodium (Porcine) (Heparin 10 Unit/ ml 5 ml Flush) 5 ml STK-MED ONCE .ROUTE 10/15/17 21:50 10/15/17 21:51 DC 10/15/17 22:03 5 ML ED Course ED COURSE: Vital signs were reviewed and showed normal vitals. The patients medical record was reviewed The above diagnostic studies were performed and reviewed. ED treatments and interventions as stated above. 1828: The patient was evaluated in room B7. A complete history and physical examination was performed. 1840: Cefepime HCl 2000 mg/Dextrose 122 ml @ 200 mls/hr IV. 1841: Vancomycin HCl 1500 mg/Sodium Chloride 530 ml @ 200 mls/hr IV. 2009: I reevaluated the patient and updated his family. 2054: Upon reevaluation, the patient is resting comfortably.I discussed my findings with the patient and his family and they understand and agree with the treatment plan. Based on the patients age, coexisting illnesses, exam and lab findings the decision to treat as an outpatient was made. The patient remained stable while under my care. The patient appeared well at the time of discharge. Medical Decision Patient is a 52-year-old male who was just discharged today and presents the ER as she was supposed to have IV antibiotics set up at home today for osteomyelitis. Parents were supposed to be shown how to do this by the nursing agency. Parents note that they are uncomfortable doing this. He presented to the ER. Patient was given IV vancomycin and cefepime while in the ER. Care management discussed with family. They set up an appointment for [facility] to [facility] to [facility] tomorrow morning. Tomorrow they will work on additional support for other help at home or possible nursing facility/skilled rehab. Patient had no other complaints. Discussed with Pt concerning signs and symptoms to watch out for. Pt was instructed to follow up with their PCP and discussed with the patient their option to return to the ED at anytime for persistent or worsening symptoms. The appropriate anticipatory guidance and out-patient management, including indications for return to the emergency department, were explained at length to the patient and understood. Medication Reconcilliation Current Medication List: was personally reviewed by me Blood Pressure Screening Patient's blood pressure: Normal blood pressure Impression Primary Impression: Osteomyelitis of toe Scribe Attestation The scribe's documentation has been prepared under my direction and personally reviewed by me in its entirety. I confirm that the note above accurately reflects all work, treatment, procedures, and medical decision making performed by me. Departure Information Dispostion Home / Self-Care Referrals Ramses Wright D.OJada (PCP) Patient Instructions My [facility], Osteomyelitis Dc Additional Instructions Please follow up with your primary care doctor with in the next 24 hours. Any worsening of your symptoms, please return to the ED immediately. This includes any fevers greater than 100.4, worsening pain, chest pain, shortness breath, persistent nausea, vomiting, unable to eat or drink, or any other concerning signs or symptoms from your standpoint. Please follow-up with the care managers tomorrow morning and will contact you and set up an additional plan. [facility] to [facility] his [facility] in the a.m.
[2017-10-16] MEDS ORDERED: RANI150C4 PO (12:44)
[2017-10-16] MEDS ORDERED: SNG10 PO (12:44)
[2017-10-18] MEDS ORDERED: LEVO1TAB35 PO (08:08)
== END 2017-10-15 22:04 | disposition home or self-care (01) ==
LOC: C.EDB 18:02
DX: M86.171 Other acute osteomyelitis, right ankle and foot (principal); Z83.3 Family history of diabetes mellitus; Z80.9 Family history of malignant neoplasm, unspecified; Z79.899 Other long term (current) drug therapy; Z91.013 Allergy to seafood; Z88.8 Allergy status to other drugs, medicaments and biological substances

== ENCOUNTER 2025-05-06 10:39 | Inpatient (IN) ==
[2025-05-06 11:08] LABS: Hematocrit (blood only) 38.8 % (42.0-52.0); Hemoglobin 12.2 g/dl (14.0-18.0); Mean Corpuscular Hemoglobin 24.9 pg (25.0-34.0); Mean Corpuscular Volume 79.2 fL (80.0-100.0); Platelet Count 213 K/uL (130-400); RDW Standard Deviation 48.9 fL (36.4-46.3); Red Blood Count 4.90 M/uL (4.70-6.10); White Blood Count 12.57 K/ul (4.8-10.8)
[2025-05-06 11:09] LABS: Immature Granulocytes # (auto) 0.05 K/uL (0.01-0.20); Immature Granulocytes % (auto) 0.4 %
--- NOTE | 2025-05-06 11:29 | XRay Report ---
Technique: A frontal view of the chest was obtained Comparison is made to the prior examination dated 12/06/2024 Findings: There are no confluent pulmonary infiltrates. The heart size is within normal limits. No pleural effusion or pneumothorax is seen. There is no definite pulmonary nodule. No fracture is noted. No foreign body is seen Impression: No active disease Electronically signed by Adama Delgadillo 05-06-2025 11:29 AM
[2025-05-06 11:31] LABS: Alanine Aminotransferase 12.0 U/L (7-52); Albumin Globulin Ratio 0.9 (0.9-2); Albumin Level 3.5 gm/dl (3.4-5.0); Alkaline Phosphatase 99.0 U/L (34-104); Anion Gap 5.0 (3-11); Bilirubin,Total 0.6 mg/dl (0.2-1.0); Blood Urea Nitrogen 23.0 mg/dl (6-23); Calcium 9.1 mg/dl (8.6-10.3); Carbon Dioxide 29.0 mmol/L (21-32); Chloride 99.0 mmol/L (98-107); Creatinine Clr Calc Pharmacy 119.7 ml/min; Globulin 3.8 gm/dl (2.5-4.0); Glucose 196.0 mg/dl (70-99(Fasting)); Lipase 8.0 U/L (11-82); Magnesium 1.8 mg/dl (1.7-2.4); Potassium 4.0 mmol/L (3.5-5.1); Sodium 133.0 mmol/L (136-145); Total Protein 7.3 gm/dl (6.0-8.3)
[2025-05-06] MEDS: diphenhydrAMINE 50 MG/ML VIAL IV STA (11:45)
[2025-05-06 11:51] LABS: INR 1.1 (0.9-1.1); Partial Thromboplastin Time 28 Seconds (21-31); Prothrombin Time 11.8 Seconds (9.0-12.0)
[2025-05-06] MEDS: OPTIRAY 320 125ml IV ONE (12:05)
--- NOTE | 2025-05-06 12:19 | Emergency Department Note ---
ED Visit Note I was consulted by the Advanced Practice Provider, Yokasta Montes De Oca PA-C. I performed a substantive portion of the visit. This includes aspects of: History: Patient is a 59-year-old male presenting with sudden onset of feeling weak and lightheaded. He was shopping at [employer] and checking out when he sat himself down on the ground and staff called 911. On EMS arrival, patient was hypoxic with saturations of 86% on room air. He was placed on supplemental oxygen and presented to the ER. On arrival, the patient denies any chest pain. He reports bilateral lower extremity edema recently. He reports a chronic cough. Denies any recent fevers or chills. MDM: - Laboratory workup reviewed and interpreted by myself showed leukocytosis (WBC 12.57) with neutrophil predominance; normal PT/INR; normal lactate; stable electrolytes; elevated troponin (40.5); normal procalcitonin; normal BNP - CXR image reviewed interpreted myself as needed for pneumonia, per my interpretation. - Viral respiratory panel negative - Patient noted to have allergy to iodine. He was given 60 mg IV Solu-Medrol a nd 25 mg IV Benadryl for pretreatment for CT imaging. - CT PE negative for PE. - Patient given 1L NS in ER with persistent tachycardia noted. - Patient to be admitted to hospitalist service for further evaluation and management .
--- NOTE | 2025-05-06 12:38 | CT Scan Report ---
Clinical history: Rule out pulmonary embolism Technique: Axial computed tomography images were obtained of the chest after the administration of intravenous contrast according to the CT angiogram protocol Comparison is made to the prior CT dated 04/07/2017 Findings: There is no definite sign of pulmonary embolism. The lungs appear clear without infiltrate or mass. There is no pleural effusion or pneumothorax. There is no sign of pulmonary fibrosis or other diffuse interstitial process. No endobronchial lesion is seen There is no mediastinal, hilar, or axillary adenopathy. The thoracic aorta appears unremarkable with no sign of aneurysm or dissection. There is no pericardial effusion. There is coronary atherosclerosis The visualized upper abdomen appears unremarkable. No fracture is seen. No focal osseous lesion is evident Impression: 1. No definite sign of pulmonary embolism 2. Normal-appearing lungs 3. Coronary atherosclerosis Electronically signed by Adama Delgadillo 05-06-2025 12:37 PM
[2025-05-06] MEDS: SODIUM CHLORIDE 0.9% 1,000 ML IV ONE (13:04)
[2025-05-06 13:10] LABS: Chlamydia pneumoniae PCR Not Detected (NotDetected); Coronavirus 229E PCR Not Detected (NotDetected); Coronavirus CoV-2 (COVID19)PCR Not Detected (NotDetected); Coronavirus HKU1 PCR Not Detected (NotDetected); Coronavirus NL63 PCR Not Detected (NotDetected); Coronavirus OC43PCR Not Detected (NotDetected); Human Metapneumovirus PCR Not Detected (NotDetected); Parainfluenza Virus 1 PCR Not Detected (NotDetected); Parainfluenza Virus 2 PCR Not Detected (NotDetected); Parainfluenza Virus 3 PCR Not Detected (NotDetected); Parainfluenza Virus 4 PCR Not Detected (NotDetected); Respiratory Syncytial VirusPCR Not Detected (NotDetected); Rhinovirus/Enterovirus PCR Not Detected (NotDetected)
--- NOTE | 2025-05-06 13:42 | Emergency Department Note ---
Impression & Plan Hypoxia, Dyspnea, Tachycardia ED Provider Note CHIEF COMPLAINT: Weakness, fatigue, hypoxia HISTORY OF PRESENT ILLNESS: This 59-year-old male patient presents to the emergency department via ambulance for evaluation of weakness and fatigue. The patient states he has been generally feeling well. This morning, he got up and drove his car to [facility] to go grocery shopping. He states that when he was checking out, he felt very fatigued and sat down on the ground. He was unable to get up and staff was unable to assist him, so EMS was contacted. Upon arrival, EMS noted the patient's O2 saturation to be in the 80s. The patient was having difficulty breathing. He denies any chest pain. He states that he has noticed shortness of breath which is chronic. He does report chronic leg swelling which she does not feel is unchanged. Denies any fever or chills. No nausea or vomiting. No dysuria, urinary frequency, or hesitancy, hematuria. No abdominal pain. History provided by: Patient REVIEW OF SYSTEMS: A 10 system review of systems was performed with positives and pertinent negatives listed in the history of present illness. All other systems were reviewed and are negative. ALLERGIES: Iodine, shellfish PHYSICAL EXAM: VITALS: Vitals are noted on the nurse's note and reviewed by myself. GENERAL: This is a 59-year-old male, in no acute distress, nondiaphoretic, well- developed well-nourished. Shallow breathing with decreased respiratory effort. SKIN: The skin was without rashes, erythema, edema, or bruising. There is no tenting of the skin. Capillary refill less than 2 seconds. HEAD: Normocephalic atraumatic. EARS: External auditory canals clear, tympanic membranes pearly quispe without erythema or effusion bilaterally. No hemotympanum. Negative lea sign EYES: Pupils equal round and reactive to light and accommodation. Conjunctivae without injection, sclerae without icterus. Extraocular movements intact. NOSE: Patent, turbinates without inflammation or discharge. No sinus tenderness. MOUTH: Mucous membranes moist. Tonsils are not enlarged. Pharynx without erythema or exudate. Uvula midline. Airway patent. Tongue does not deviate. NECK: Supple without nuchal rigidity. No lymphadenopathy. Cervical spine is nontender. No JVD. HEART: Regular rate and rhythm without murmurs gallops or rubs. LUNGS: Clear to auscultation bilaterally without wheezes, rales or rhonchi. No retractions or accessory muscle use. ABDOMEN: Positive bowel sounds x 4. Soft, nontender, without masses or organomegaly. No guarding or rebound tenderness. No CVA tenderness bilaterally MUSCULOSKELETAL: No muscle atrophy, erythema, or edema noted. Full range of motion without joint tenderness in all extremities. No tenderness to palpation. Normal gait. Strength 5/5 throughout. NEURO: Patient was alert and oriented to person place and time. No focal neurological deficits. An order was placed for continuous engine monitor. The monitor showed a sinus tachycardia at a ventricular rate of 130 bpm, per my interpretation. EKG was reviewed by myself and found to be sinus tachycardia at a rate of 129 beats per minute and per my interpretation reveals no ST elevation or depression. No T wave inversion. And when compared to previous EKG of 12/06/2024 shows sinus tachycardia has replaced normal sinus rhythm, otherwise no significant change. Chest x-ray and CT angiogram of the chest as interpreted by myself and the radiologist revealed no acute findings, with radiologist interpretation as above. I agree with the radiologist's findings as based upon my independent interpretation. EMERGENCY DEPARTMENT COURSE: The patient was evaluated as above. On initial examination, the patient is dyspneic. He is hypoxic with an O2 saturation of 85% on room air during my examination. The patient is having difficulty speaking full sentences. He is tachycardic in the 130s. IV access was obtained, labs were drawn. The patient was hydrated gently with 500cc IV fluids due to concern for possible fluid overload as the cause of his symptoms, though no history of CHF. Labs reviewed. Per my interpretation, leukocytosis of 12.57. Patient is anemic with a hemoglobin of 12.2 and hematocrit of 38.8. Platelet count 213,000. Coags unremarkable. Renal, hepatic function and electrolytes without significant abnormality. Troponin elevated at 40.5. Lactic acid 0.6. Procalcitonin 0.12. BNP 24. Respiratory BioFire testing is negative. Chest x-ray was completed and was reviewed by myself and supervisor fireworks assembly as noted. No acute findings. Patient was premedicated for CT scan due to history of rash with shellfish and iodine. He was medicated with 60 mg Solu-Medrol and [address] angiogram of the chest for PE was completed and was reviewed by myself radiologist and was negative. On reevaluation, patient is feeling improved. Unclear cause of his symptoms. Initially concerned for infection, though pt. is afebrile and no obvious source. Low suspicion for CHF given negative BNP and normal CXR. Given the hypoxia, persistent need for oxygen (O2 saturation remains in the 80's on room air), and elevated troponin, I did recommend inpatient care. The patient was agreeable. Discussed the case with Annabel Alexis PA-C. She did agree to evaluate the patient for admission. Please see hospitalist dictation regarding ongoing management of this patient. Case was discussed with the attending physician. I attest that I have personally reviewed the patient medication list. I attest that I have reviewed the patient's blood pressure and it was found to be elevated. Further management by hospitalist. GCS: 15 In the evaluation and treatment of this patient the following differential diagnoses were entertained: Reactive airway disease, pneumonia, pneumothorax, COPD, CHF, infections, cardiac ischemia, pulmonary embolism, musculoskeletal, gastrointestinal, as well as other pathologies. The chart was completed utilizing [employer] Speech voice recognition software. Grammatical errors, random word insertions, pronoun errors, and incomplete sentences are an occasional consequence of this system due to software limitations, ambient noise, and hardware issues. Any formal questions or concerns about the content, text, or information contained within the body of this dictation should be directly addressed to the provider for clarification. 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 Abnormal CT scan, lung Dyslipidemia GERD without esophagitis Hypertension Morbid obesity Reactive airway disease Restrictive lung disease Shellfish allergy Mild cognitive impairment of uncertain or unknown etiology Bipolar disorder Medical History (Updated 05/06/25 @ 15:32 by Yokasta Montes De Oca PA-C) Hearing deficit BILAT Osteoarthritis Hyperlipidemia Morbid obesity ADHD GERD (gastroesophageal reflux disease) Surgical History History of tooth extraction History of adenoidectomy History of colonoscopy Hx of foot surgery RIGHT AND LEFT FOOT SURGERY Family History Father Diabetes Myocardial infarction Other No family history of bleeding disorder Denies family history of Ovarian cancer Prostate cancer Breast cancer Colorectal cancer Social History Smoking Status: Never smoker Second Hand Exposure: No; Do You Dip or Chew Tobacco: No; Hx Alcohol Use: No Hx Substance Use: No Preferred Language: Maltese Communication Ability: Effective Visual Impairment: No Limitations Hearing Ability: Use of Hearing Aid Quick Print Operator Required: No Beliefs That Will Affect Care: None marital status: Single Current Living Situation: Alone current occupational status: employed current occupation: skills Feels Safe at Home: Yes Childhood Exposure to Second-Hand Smoke: No Diet: regular caffeine: Yes during the past year weight has: increased > 10 lbs Dental Care, Regularly: Yes Physical Activity Frequency: Does not Exercise Seatbelt Use: always Sunscreen Use: Yes Assistive Devices: Glasses and Hearing Aid - Bilateral Allergies Allergies Allergy/AdvReac Type Severity Reaction Status Date / Time povidone-iodine Allergy Intermediate Rash Verified 03/28/25 14:39 shellfish derived Allergy Intermediate RASH Verified 03/28/25 14:39 Home Meds Home Medications Medication Instructions Recorded Confirmed azelastine 137 mcg (0.1 %) nasal 2 spray intranasal DAILY PRN 06/23/22 05/06/25 spray Congestion fluticasone propionate 50 2 spray intranasal DAILY PRN 06/23/22 05/06/25 mcg/actuation nasal Allergic Symptoms spray,suspension Previous Rx's Medication Instructions Recorded Compression stockings, Large #2 ea 01/03/25 metformin 500 mg tablet 500 mg PO BID #180 tabs 03/24/25 furosemide 20 mg tablet 20 mg PO BID #60 tabs 03/28/25 Results & Data (ED) Vital Signs Vital Signs - 24 hr 05/06/25 10:50 05/06/25 11:05 05/06/25 11:14 Temperature 37.5 C Temperature Source Oral Pulse Rate 128 H 131 H Pulse Rate [Apical] Respiratory Rate 22 Respiratory Effort / Characteristics Non-Labored Respiratory Depth Normal Blood Pressure 134/64 Blood Pressure [Left Arm] Blood Pressure [Right Arm] Blood Pressure Mean 87 Blood Pressure Mean [Left Arm] Blood Pressure Mean [Right Arm] Pulse Oximetry 92 94 Oxygen Delivery Method Room Air Room Air Oxygen Flow Rate Sepsis Recent Fever Within 48 Hours Yes Sepsis New/Unexplained Change in Mental Status Yes Sepsis Action Taken by Nursing No Action Required 05/06/25 12:13 05/06/25 13:04 05/06/25 13:45 Temperature 37.4 C Temperature Source Oral Pulse Rate Pulse Rate [Apical] 121 H 112 H Respiratory Rate 20 20 Respiratory Effort / Characteristics Non-Labored Non-Labored Respiratory Depth Normal Normal Blood Pressure Blood Pressure [Left Arm] Blood Pressure [Right Arm] 142/94 H 136/73 Blood Pressure Mean Blood Pressure Mean [Left Arm] Blood Pressure Mean [Right Arm] 110 94 Pulse Oximetry 98 93 Oxygen Delivery Method Nasal Cannula Room Air Oxygen Flow Rate 3 Sepsis Recent Fever Within 48 Hours Sepsis New/Unexplained Change in Mental Status Sepsis Action Taken by Nursing 05/06/25 13:45 05/06/25 14:45 05/06/25 15:13 Temperature Temperature Source Pulse Rate 103 H Pulse Rate [Apical] 108 H 102 H Respiratory Rate 20 24 Respiratory Effort / Characteristics Non-Labored Respiratory Depth Normal Blood Pressure Blood Pressure [Left Arm] 138/74 Blood Pressure [Right Arm] Blood Pressure Mean Blood Pressure Mean [Left Arm] 95 Blood Pressure Mean [Right Arm] Pulse Oximetry 95 95 Oxygen Delivery Method Room Air Nasal Cannula Oxygen Flow Rate 3 Sepsis Recent Fever Within 48 Hours Sepsis New/Unexplained Change in Mental Status Sepsis Action Taken by Nursing Laboratory Data 05/06/25 10:50 05/06/25 10:50 Lab Results 05/06/25 05/06/25 05/06/25 Range/Units 10:50 12:15 13:03 WBC 12.57 H (4.8-10.8) K/ul RBC 4.90 (4.70-6.10) M/uL Hgb 12.2 L (14.0-18.0) g/dl Hct 38.8 L (42.0-52.0) % MCV 79.2 L (80.0-100.0) fL MCH 24.9 L (25.0-34.0) pg MCHC 31.4 L (32.0-36.0) g/dL RDW Std Deviation 48.9 H (36.4-46.3) fL RDW Coeff of Radha 17.1 H (11.5-14.5) % Plt Count 213 (130-400) K/uL MPV 9.2 L (9.4-12.4) fL Immature Gran % (Auto) 0.4 % Neut % (Auto) 89.5 % Lymph % (Auto) 5.2 % Juncos % (Auto) 4.5 % Eos % (Auto) 0.2 % Baso % (Auto) 0.2 % Neut # (Auto) 11.25 H (1.40-6.50) K/uL Lymph # (Auto) 0.65 L (1.20-3.40) K/uL Juncos # (Auto) 0.56 (0.11-0.59) K/uL Eos # (Auto) 0.03 (0.00-0.50) K/uL Baso # (Auto) 0.03 (0.00-0.20) K/uL Immature Gran # (Auto) 0.05 (0.01-0.20) K/uL PT 11.8 (9.0-12.0) Seconds INR 1.1 (0.9-1.1) APTT 28 (21-31) Seconds PTT Ratio 1.0 Sodium 133 L (136-145) mmol/L Potassium 4.0 (3.5-5.1) mmol/L Chloride 99 (98-107) mmol/L Carbon Dioxide 29 (21-32) mmol/L Anion Gap 5 (3-11) BUN 23 (6-23) mg/dl Creatinine 0.94 (0.6-1.4) mg/dl Est Cr Clr Drug Dosing 119.7 ml/min eGFR 92.80 BUN/Creatinine Ratio 24.5 H (10-20) Glucose 196 H (70-99(Fasting)) mg/dl Lactate 0.6 (0.4-2.0) mmol/L Calcium 9.1 (8.6-10.3) mg/dl Magnesium 1.8 (1.7-2.4) mg/dl Total Bilirubin 0.6 (0.2-1.0) mg/dl AST 16 (13-39) U/L ALT 12 (7-52) U/L Alkaline Phosphatase 99 (34-104) U/L Troponin I High Sens 40.5 H (0-20) pg/ml B-Natriuretic Peptide 24 (0-100) pg/ml Total Protein 7.3 (6.0-8.3) gm/dl Albumin 3.5 (3.4-5.0) gm/dl Globulin 3.8 (2.5-4.0) gm/dl Albumin/Globulin Ratio 0.9 (0.9-2) Lipase 8 L (11-82) U/L Procalcitonin 0.12 (0-0.5) ng/ml Adenovirus (PCR) Not Detected (NotDetected) B. pertussis DNA (PCR) Not Detected (NotDetected) B.parapertussis DNA PCR Not Detected (NotDetected) C. pneumoniae DNA (PCR) Not Detected (NotDetected) Coronavirus OC43 (PCR) Not Detected (NotDetected) Coronavirus HKU1 (PCR) Not Detected (NotDetected) Coronavirus 229E (PCR) Not Detected (NotDetected) SARS-CoV-2 (PCR) Not Detected (NotDetected) Coronavirus NL63 (PCR) Not Detected (NotDetected) Human Metapneumovir PCR Not Detected (NotDetected) Influenza Type A (PCR) Not Detected (NotDetected) Influenza Type B (PCR) Not Detected (NotDetected) M. pneumoniae (PCR) Not Detected (NotDetected) Parainfluenza 1 (PCR) Not Detected (NotDetected) Parainfluenza 2 (PCR) Not Detected (NotDetected) Parainfluenza 3 (PCR) Not Detected (NotDetected) Parainfluenza 4 (PCR) Not Detected (NotDetected) RSV (PCR) Not Detected (NotDetected) Entero/Rhino (PCR) Not Detected (NotDetected) Administered Medications Discontinued Medications Diphenhydramine HCl (Diphenhydramine 50 Mg/Ml Vial) 25 mg IV NOW STA Stop: 05/06/25 11:34 Last Admin: 05/06/25 11:45 Dose: 25 mg Documented By: CJ Sodium Chloride (Nss) 1,000 mls @ 999 mls/hr IV .Q1H1M ONE Stop: 05/06/25 13:41 Last Infusion: 05/06/25 14:24 Dose: Infused Documented By: Admin: 05/06/25 13:04 Dose: 999 mls/hr Documented By: CJ Ioversol (Optiray 320 125ml) 120 ml IV ONCE ONE Stop: 05/06/25 12:06 Last Admin: 05/06/25 12:05 Dose: 120 ml Documented By: CHELLY Methylprednisolone (Methylprednisolone 125 Mg/2 Ml Vial) 60 mg IV NOW STA Stop: 05/06/25 11:34 Last Admin: 05/06/25 11:45 Dose: 60 mg Documented By: CJ Imaging Data Radiologist's Impression: Chest X-Ray 05/06/25 11:00 Technique: A frontal view of the chest was obtained Comparison is made to the prior examination dated 12/06/2024 Findings: There are no confluent pulmonary infiltrates. The heart size is within normal limits. No pleural effusion or pneumothorax is seen. There is no definite pulmonary nodule. No fracture is noted. No foreign body is seen Impression: No active disease Electronically signed by Adama Delgadillo 05-06-2025 11:29 AM Chest CTA 05/06/25 11:31 Clinical history: Rule out pulmonary embolism Technique: Axial computed tomography images were obtained of the chest after the administration of intravenous contrast according to the CT angiogram protocol Comparison is made to the prior CT dated 04/07/2017 Findings: There is no definite sign of pulmonary embolism. The lungs appear clear without infiltrate or mass. There is no pleural effusion or pneumothorax. There is no sign of pulmonary fibrosis or other diffuse interstitial process. No endobronchial lesion is seen There is no mediastinal, hilar, or axillary adenopathy. The thoracic aorta appears unremarkable with no sign of aneurysm or dissection. There is no pericardial effusion. There is coronary atherosclerosis The visualized upper abdomen appears unremarkable. No fracture is seen. No focal osseous lesion is evident Impression: 1. No definite sign of pulmonary embolism 2. Normal-appearing lungs 3. Coronary atherosclerosis Electronically signed by Adama Delgadillo 05-06-2025 12:37 PM Discharge Plan Visit Data Chief Complaint: Illness Stated Complaint: WEAKNESS, EDEMA ED Provider: Kenyetta Merrill ED Midlevel Provider: Yokasta Montes De Oca Discharge Problem: Hypoxia, Dyspnea, Tachycardia Patient Disposition: Admitted As Inpatient Condition: Good Forms Stand Alone Forms: My [facility] [place] Meme Prescriptions Prescriptions: No Action metformin 500 mg tablet 500 mg PO BID Qty: 180 2RF azelastine 137 mcg (0.1 %) aerosol,spray 2 spray INTNAS DAILY PRN (Reason: Congestion) fluticasone propionate 50 mcg/actuation spray,suspension 2 spray intranasal DAILY PRN (Reason: Allergic Symptoms) furosemide 20 mg tablet 20 mg PO BID Qty: 60 5RF (DME) Compression stockings, Large See Rx Instructions .Route .MEDSUPPLY Qty: 2 0RF Rx Instructions: As directed Referrals Referrals: Ramses Wright, [Primary Care Provider] -
--- NOTE | 2025-05-06 14:27 | History & Physical Report ---
"<Statement entered by Annabel Maldonado MD - 05/06/25 17:43> I have reviewed vital signs, chart notes, labs and imaging. I have personally seen, evaluated and examined the patient. I have also discussed the management of the patient with the NADIA and I agree with the exam findings documented in the history and physical examination and the documented assessment and plan unless otherwise stated below. 59 y/o with hypoxia symptomatic only of weakness. BIB EMS from [facility] where he became weak and slid to the floor CTPA and CXR unremarkable, no PE of pulmonary infiltrates. biofire neg BNP very low, though can be low despite heart failure in morbid obesity. Mild trop elevation to 40. Sinus tachy and LVH with repol abnormality on EKG without acute ischemic changes or chest pain Mild leukocytosis and tachycardia, may have infection On my exam lungs are clear. He was found to have left lateral foot wound which is deep with tunneling present though no drainage A/P: Hypoxia - unknown whether acute or chronic. Has restrictive lung disease related to morbid obesity with BMI of 53. No pneumonia or PE. No pulmonary infiltrates on CTPA. Treating with short course of steroids in case of bronchospasm / viral infection. Consider trial of diuresis if not improving, though no overt volume overload. LE edema more likely related to venous stasis and lymphedema L lateral foot diabetic foot wound, setting of diabetic neuropathy and charcot foot. Insensate or nearly so. Based on leukocytosis, mild tachycardia probably infected. X-ray pending Consult podiatry tomorrow and WON Thursday. Probably needs MRI. Follow up wound culture. Needs pressure offloading - NWB or boot. Currently has job but mostly sitting. Date of Service May 06, 2025 Assessment & Plan (1) Hypoxia: (2) Diabetic Charcot foot: (3) Weakness: (4) Tachycardia: Plan Estuardo is a pleasant 59-year-old man with past medical history of hypertension, T2DM, restrictive lung disease, bipolar disorder, ADD, mild cognitive impairment. He presented to the ED via EMS with weakness and hypoxia. Workup in ED revealed hypoxia requiring supplemental O2, sinus tachycardia, elevated troponin. CXR and chest CTA without evidence of focal consolidation or PE. On admission examination, found patient to have the appearance of Charcot foot with a lateral opened wound on his plantar surface. #Charcot foot | Diabetic foot wound - Left foot XR ordered on admission, pending - ESR/CRP added to labs, pending - Mild leukocytosis of 12.57 on admission - Wound culture ordered. Blood cultures obtained - Start Zosyn 4.5 mg IV Q8H after wound culture has been obtained - NWB to LLE - Will likely need podiatry and wound care nurse consult, deferred on admission as it is the weekend, can consult on Tuesday 05/08 #Hypoxia unclear etiology. CXR and chest CTA unremarkable. Respiratory BioFire negative. Procalcitonin, lactate, BNP WNL. Does have history of underlying restrictive lung disease - Continue supplemental O2 to maintain O2 saturation > 90% - currently requiring 3 L NC - Start prednisone 40 mg p.o. daily. Subjective improvement in dyspnea after receiving steroids in ED - Incentive spirometer Q1HWA - Wean off O2 as able #Weakness | Dehydration - S/p 1 L NSS bolus in ED. Continue on NSS @ maintenance rate x 1 L - PT/OT consulted, NWB on LLE #Elevated troponin | Sinus Tachycardia - Troponin 40.5, repeating pending. Trend to peak - EKG without ischemic changes. No chest pain - Monitor on telemetry - TSH added to AM labs #[id number] 7.3% in December 2024. Home regimen includes metformin 500 mg BID - Hold home regimen - Use SSI while admitted - Pharmacy consulted for glycemic management in setting of steroid use - A1c added to AM labs #Lower extremity edema Patient takes Lasix 20 mg BID. Appears as though his lower extremity swelling is chronic venous stasis so I question what benefit his Lasix provides, but will continue for now VTE PPx: Lovenox Dispo: Admission to med/tele Reviewed prior medical records History of Present Illness Chief Complaint: Weakness, fatigue, hypoxia Primary Care Provider: Ramses Wright DO Estuardo is a pleasant 59-year-old man with past medical history of hypertension, T2DM, restrictive lung disease, bipolar disorder, ADD, mild cognitive impairment. He presented to the ED via EMS with weakness and hypoxia. At the time of my exam, the patient was lying in bed in no acute distress. He states he he was at the grocery store when he had sudden onset of weakness and lightheadedness. He sat down on the ground, and was unable to get up on his own or with the assistance from staff members, so EMS was called. EMS found the patient to be dyspneic and hypoxic with an O2 saturation in the 80s. He denies feeling sick recently. Denies fever, chills, chest pain, nausea, vomiting, abdominal pain, dysuria, diarrhea. He reports feeling tired at this time but denies any other symptoms. He denies feeling short of breath or having difficulty breathing at this time. Patient reports that he took all of his regular morning medications today; no recent change in medications. He does not use supplemental oxygen at baseline. No CPAP at night. Vitals on admission significant for sinus tachycardia in 100s, new oxygen requirement of 3 L NC to maintain O2 saturation, temp 99.3; vitals otherwise stable. Labs on admission are significant for leukocytosis with WBC 12.57, Hgb 12.2 (baseline), mild hyponatremia with Na 133, elevated glucose at 196, elevated troponin at 40.5. BNP WNL at 24. Procalcitonin WNL at 0.12. Respiratory BioFire negative. CXR on admission reveals no active disease. Chest CTA with normal-appearing lungs, atherosclerosis, no evidence of PE. We discussed code status, patient wishes to be a full code. Allergies Allergy/AdvReac Type Severity Reaction Status Date / Time povidone-iodine Allergy Intermediate Rash Verified 03/28/25 14:39 shellfish derived Allergy Intermediate RASH Verified 03/28/25 14:39 Home Medications Medication Instructions Recorded Confirmed Type azelastine 137 mcg (0.1 %) nasal 2 spray intranasal DAILY PRN 06/23/22 05/06/25 History spray Congestion fluticasone propionate 50 2 spray intranasal DAILY PRN 06/23/22 05/06/25 History mcg/actuation nasal Allergic Symptoms spray,suspension Compression stockings, Large #2 ea 01/03/25 03/28/25 Rx metformin 500 mg tablet 500 mg PO BID #180 tabs 03/24/25 05/06/25 Rx furosemide 20 mg tablet 20 mg PO BID #60 tabs 03/28/25 05/06/25 Rx Past Med/Surg History Problem List (Updated 05/06/25 @ 15:36 by Annabel Alexis PA-C) Diabetic Charcot foot Tachycardia (Acute) Dyspnea (Acute) Hypoxia (Acute) Weakness Hypoxia Type 2 diabetes mellitus Diabetes mellitus Dysphagia (~02/03/23) Loss of sense of smell Allergic rhinitis Chronic cough DOES NOT USE INHALERS- ALLERGY RELATED 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 Abnormal CT scan, lung Dyslipidemia GERD without esophagitis Hypertension Morbid obesity Reactive airway disease Restrictive lung disease Shellfish allergy Mild cognitive impairment of uncertain or unknown etiology Bipolar disorder Medical History (Updated 05/06/25 @ 15:36 by Annabel Alexis PA-C) Hearing deficit BILAT Osteoarthritis Hyperlipidemia Morbid obesity ADHD GERD (gastroesophageal reflux disease) Surgical History History of tooth extraction History of adenoidectomy History of colonoscopy Hx of foot surgery RIGHT AND LEFT FOOT SURGERY Family History Father Diabetes Myocardial infarction Other No family history of bleeding disorder Denies family history of Ovarian cancer Prostate cancer Breast cancer Colorectal cancer Social History Smoking Status: Never smoker Second Hand Exposure: No; Do You Dip or Chew Tobacco: No; Hx Alcohol Use: No Hx Substance Use: No Preferred Language: [place] Communication Ability: Effective Visual Impairment: No Limitations Hearing Ability: Use of Hearing Aid Installations Inspector Required: No Beliefs That Will Affect Care: None marital status: Single Current Living Situation: Alone current occupational status: employed current occupation: skills Feels Safe at Home: Yes Childhood Exposure to Second-Hand Smoke: No Diet: regular caffeine: Yes during the past year weight has: increased > 10 lbs Dental Care, Regularly: Yes Physical Activity Frequency: Does not Exercise Seatbelt Use: always Sunscreen Use: Yes Assistive Devices: Glasses and Hearing Aid - Bilateral Review of Systems 2 Review of Systems: All systems reviewed & are unremarkable except as noted in HPI & below Constitutional: + fatigue and + weakness Physical Exam 2 Physical Exam: General: No acute distress, nondiaphoretic, well-developed, well-nourished. Class III obesity. Skin: Warm, dry. 2+ nonpitting edema in lower extremities bilaterally. Erythema of medial lower extremities bilaterally, consistent with chronic venous stasis changes. Left foot: Charcot foot noted. Left foot with open wound on plantar surface, pictured below. Surgically amputated left pinky toe. Webbed 2nd and 3rd toes. HEENT: PERRLA. Dry mucous membranes consistent with dehydration. Cardiac: Regular rate and rhythm without murmurs gallops or rubs. Pulm: Clear to auscultation bilaterally without wheezes, rales or rhonchi. Normal respiratory effort. 95% on 3 L NC. Abdominal: Soft, distended secondary to body habitus, nontender. Bowel sounds present. Neuro: A&O x3. No focal neurological deficits. Results & Data Results & Data Vital Signs (Past 12 Hours) Vital Signs Temp Pulse Pulse Resp BP BP Pulse Ox 05/06/25 13:45 108 H 20 95 05/06/25 13:45 99.3 F 05/06/25 13:04 112 H 20 136/73 93 05/06/25 12:13 121 H 20 142/94 H 98 05/06/25 11:14 131 H 05/06/25 11:05 94 05/06/25 10:50 99.5 F 128 H 22 134/64 92 O2 Del Method O2 Flow Rate 05/06/25 13:45 Room Air 05/06/25 13:45 05/06/25 13:04 Room Air 05/06/25 12:13 Nasal Cannula 3 05/06/25 11:14 05/06/25 11:05 Room Air 05/06/25 10:50 Room Air Laboratory Results Reviewed CBC with differential, coagulation studies, CMP/chemistries, respiratory bio fire Diagnostic Findings Reviewed CXR, chest CTA, EKG PG Care Time/CCT Total # of Minutes Spent Total Time Spent with Patient: Total time spent is greater than 50% in coordination of care (as documented) at patient's floor/unit and/or counseling patient: Coding Level of Care Code 96071 INT INP/OBS CARE 3/75MIN Diagnoses Hypoxia R09.02 Diabetic Charcot foot E11.610 Weakness R53.1 Tachycardia R00.0"
[2025-05-06] MEDS ORDERED: PHARMACY GLYCEMIC MGMT CONSULT PRN (16:43)
[2025-05-06] MEDS ORDERED: ONDANSETRON INJ 2 MG/ML 2 ML VIAL IV PRN (16:43)
[2025-05-06] MEDS ORDERED: GLUCOSE 10 TAB/TUBE PO PRN (16:43)
[2025-05-06] MEDS ORDERED: DEXTROSE 50% 50 ML SYRINGE IV PRN (16:43)
[2025-05-06] MEDS ORDERED: ALUMINUM/MAGNESIUM SUSP 30 ML UDC PO PRN (16:43)
[2025-05-06] MEDS ORDERED: GLUCOSE 40% GEL 15 GM TUBE PO PRN (16:43)
[2025-05-06] MEDS ORDERED: GLUCAGON FOR INJ 1 MG VIAL SQ PRN (16:43)
[2025-05-06] MEDS ORDERED: POLYETHYLENE (MIRALAX) 17 GM PACK PO PRN (16:43)
[2025-05-06] MEDS ORDERED: CARBOHYDRATES FOR HYPOGLYCEMIA PO PRN (16:43)
--- NOTE | 2025-05-06 16:56 | Electrocardiogram Report ---
Test Reason : Blood Pressure : */* mmHG Vent. Rate : 129 BPM Atrial Rate : 129 BPM P-R Int : 154 ms QRS Dur : 104 ms QT Int : 300 ms P-R-T Axes : 61 -19 86 degrees QTcB Int : 439 ms Sinus tachycardia Left ventricular hypertrophy with repolarization abnormality Incomplete right bundle branch block Abnormal ECG When compared with ECG of 06-Dec-2024 18:34, Vent. rate has increased by 55 bpm Inverted T waves have replaced nonspecific T wave abnormality in Lateral leads Confirmed by Julius Grant ([id number]) on 05/06/2025 4:55:46 PM Referred By: Confirmed By: Julius Grant
[2025-05-06] MEDS: INSULIN ASPART PER UNIT CHARGE SC SCH (17:45)
[2025-05-06] MEDS: PIPERACILLIN/TAZOBACTAM 4.5 GM/100 ML BAG IV ONE (17:48)
[2025-05-06] MEDS: SODIUM CHLORIDE 0.9% 1,000 ML IV SCH (17:48)
[2025-05-06] MEDS: PIPERACILLIN/TAZOBACTAM 4.5 GM/100 ML BAG IV SCH ×2 (17:49→22:29)
--- NOTE | 2025-05-06 18:36 | Communication Note ---
Date of Service: May 06, 2025 Troponin rising pretty fast, remains asymptomatic Follow serial - midnight and AM Ordered TTE for tomorrow. Could be myocardial demand ischemia from hypoxia, consider heart failure
--- NOTE | 2025-05-06 19:53 | XRay Report ---
History: Pain Comparison: None Findings/impression: Soft tissue wound seen about the mid plantar region of the foot. There is diffuse prominent soft tissue swelling. Amputation changes at the fifth metatarsal and mid portion. No destructive bony changes otherwise seen. No significant soft tissue gas. Calcaneal enthesophytes seen. No finding to specifically suggest osteomyelitis. Electronically signed by Julius Mcdonald 05-06-2025 7:52 PM
[2025-05-06] MEDS: FUROSEMIDE 20 MG TAB PO SCH (21:07)
[2025-05-06] MEDS: LANTUS PER UNIT CHARGE SQ SCH (21:08)
[2025-05-07 07:31] LABS: A calco-baum cmplx NotReported Not Detected (NotDetected); Bact fragilis Not Reported Not Detected (NotDetected); Blood Culture Id Panel See PCR Comment (NotDetected); C auris Not Reported Not Detected (NotDetected); Calbicans Not Reported Not Detected (NotDetected); Candida glabrata Not Reported Not Detected (NotDetected); Candida krusei Not Reported Not Detected (NotDetected); Cneoformans/gatti Not Reported Not Detected (NotDetected); Cparapsilosis Not Reported Not Detected (NotDetected); Ctropicalis Not Reported Not Detected (NotDetected); E cloacae compx Not Reported Not Detected (NotDetected); Efaecalis Not Reported Not Detected (NotDetected); Efaecium Not Reported Not Detected (NotDetected); Enterobacterales Not Reported Not Detected (NotDetected); Escherichia coli Not Reported Not Detected (NotDetected); H influenzae Not Reported Not Detected (NotDetected); K aerogenes Not Reported Not Detected (NotDetected); Koxytoca Not Reported Not Detected (NotDetected); Kpneumoniae grp Not Reported Not Detected (NotDetected); Lmonocyt Not Reported Not Detected (NotDetected); N meningitidis Not Reported Not Detected (NotDetected); P aeruginosa Not Reported Not Detected (NotDetected); Proteus spp Not Reported Not Detected (NotDetected); Salmonella spp Not Reported Not Detected (NotDetected); Staph lugdunensis Not Reported Not Detected (NotDetected); Staph spp. Not Reported DETECTED (NotDetected); Staphaureus Not Reported DETECTED (NotDetected); Staphepi Not Reported Not Detected (NotDetected); Staphylococcus spp. DETECTED (NotDetected); Stenmaltophilia Not Reported Not Detected (NotDetected); Strep agal(GrpB) Not Reported Not Detected (NotDetected); Strep pneum Not Reported Not Detected (NotDetected); Strep pyog (GrpA) Not Reported Not Detected (NotDetected); Strep spp Not Reported Not Detected (NotDetected); mecAC+MREJ Resistant Gene MRSA Not Detected (NotDetected)
[2025-05-07] MEDS: ENOXAPARIN INJ 40 MG/0.4 ML SYR SQ SCH (07:35)
[2025-05-07] MEDS: predniSONE 20 MG TAB PO SCH (07:36)
[2025-05-07 07:53] LABS: Hematocrit (blood only) 37.5 % (42.0-52.0); Hemoglobin 11.7 g/dl (14.0-18.0); Immature Granulocytes # (auto) 0.09 K/uL (0.01-0.20); Immature Granulocytes % (auto) 0.6 %; Mean Corpuscular Hemoglobin 25.1 pg (25.0-34.0); Mean Corpuscular Volume 80.3 fL (80.0-100.0); Platelet Count 226 K/uL (130-400); RDW Standard Deviation 50.0 fL (36.4-46.3); Red Blood Count 4.67 M/uL (4.70-6.10); White Blood Count 14.38 K/ul (4.8-10.8)
[2025-05-07 08:19] LABS: Anion Gap 7.0 (3-11); Blood Urea Nitrogen 20.0 mg/dl (6-23); Calcium 8.5 mg/dl (8.6-10.3); Carbon Dioxide 29.0 mmol/L (21-32); Chloride 101.0 mmol/L (98-107); Creatinine Clr Calc Pharmacy 135.3 ml/min; Glucose 148.0 mg/dl (70-99(Fasting)); Potassium 4.1 mmol/L (3.5-5.1); Sodium 137.0 mmol/L (136-145)
[2025-05-07 08:42] LABS: Thyroid Stimulating Hormone 2.645 uIu/ml (0.300-4.500)
[2025-05-07 08:54] LABS: Hemoglobin A1C 7.7 % (4.5-5.6)
--- NOTE | 2025-05-07 10:32 | XCELERA ---
[id number] \\[id number]
[2025-05-07] MEDS: DAPTOmycin 600 MG in SYRINGE 0 ML IV SCH (11:13)
--- NOTE | 2025-05-07 14:41 | Hospitalist Progress Note ---
"Date of Service May 07, 2025 Assessment & Plan (1) Diabetic Charcot foot: (2) Gram-positive bacteremia: (3) Weakness: Plan Estuardo is a pleasant 59-year-old man with past medical history of hypertension, T2DM, restrictive lung disease, bipolar disorder, ADD, mild cognitive impair ment. He presented to the ED via EMS with weakness and hypoxia. Workup in ED revealed hypoxia requiring supplemental O2, sinus tachycardia, elevated troponin. CXR and chest CTA without evidence of focal consolidation or PE. On admission examination, found patient to have the appearance of Charcot foot with a lateral opened wound on his plantar surface. #Charcot foot | Diabetic foot wound | Gram positive bacteremia - Left foot XR without evidence of osteomyelitis, no significant soft tissue gas - CRP is elevated at 12. ESR machine is down secondary to maintenance - Leukocytosis remains 12.57 -> 14.38 - Wound culture pending - Blood cultures with gram-positive cocci clusters in 1/2 bottles - Echocardiogram without vegetations - Continue Zosyn 4.5 mg IV Q8H - Initially started Daptomycin IV given prelim blood culture, however after discussion with pharmacist, the BCID2 panel indicates likely MSSA with 99%/99.8% sensitivity/specificity respectively, so the concern for MRSA is very low and daptomycin was discontinued. If cultures to result with MRSA, add daptomycin back on (would choose Dapto over vancomycin given the large dose of vancomycin that would be required with his weight) - NWB to LLE - Will likely need podiatry and wound care nurse consult, deferred on admission as it is the weekend, can consult on Tuesday 05/08 #Hypoxia unclear etiology. CXR and chest CTA unremarkable. Respiratory BioFire negative. Procalcitonin, lactate, BNP WNL. Does have history of underlying restrictive lung disease - Required supplemental O2 with 3 L via NC on admission to maintain O2 sat. Now stable on room air - Continue prednisone 40 mg p.o. daily for today. Consider discontinuing prednisone tomorrow 05/08 #Weakness | Dehydration - Dehydration resolved after 2 L NSS. Has good appetite/oral intake. Encourage oral hydration - PT/OT consulted, NWB on LLE - recommending rehab #Elevated troponin | Sinus Tachycardia - Troponin peaked at 193 then downtrended - EKG without ischemic changes. No chest pain - Echocardiogram notes EF 50-55%, grade 2 diastolic dysfunction, mildly dilated left atrium, moderate mitral annular calcification, RVSP elevated at 30-40 mm mg, inferior vena cava mildly dilated - TSH WNL - Monitor on telemetry - has remained in NSR with no acute events thus far #[id number] 7.3% in December 2024. Home regimen includes metformin 500 mg BID - Hold home regimen - Use SSI while admitted - Pharmacy consulted for glycemic management in setting of steroid use - A1c elevated at 7.7% #Lower extremity edema Patient takes Lasix 20 mg BID. Appears as though his lower extremity swelling is chronic venous stasis so I question what benefit his Lasix provides, but will continue for now VTE PPx: Lovenox Dispo: Pending podiatry evaluation. PT/OT recommending rehab at this timeno referrals yet made Discussed antibiotic regimen with pharmacist Admission and Anticipated Discharge Date Admission Date: May 06, 2025 Supervising Physician Co-Signing Physician Notes Attending Attestation - Chart reviewed, care plan d/w LEANDRO Alexis. I agree with the evans components of her documentation. Tray Napoles MD Subjective Patient seen and evaluated at bedside. He reports feeling well overall at this time. He is no longer requiring supplemental O2 and denies feeling short of breath. He denies having any significant pain in his left foot. We discussed the results of his x-ray, lab work, and updated treatment plan. He has a good appetite and slept okay overnight. No acute complaints or concerns at this time. Telemetry reviewed: NSR with PVCs, rate 70s-80s. Physical Exam Physical Exam: General: No acute distress, nondiaphoretic, well-developed, well-nourished. Class III obesity. Skin: Warm, dry. 2+ nonpitting edema in lower extremities bilaterally. Erythema of medial lower extremities bilaterally, consistent with chronic venous stasis changes. Left foot: Charcot foot noted. Wound on lateral plantar surface covered in dressingclean dry intact. Surgically amputated left pinky toe. Webbed 2nd and 3rd toes. Cardiac: Regular rate and rhythm without murmurs gallops or rubs. Pulm: Clear to auscultation bilaterally without wheezes, rales or rhonchi. Normal respiratory effort. 93% on room air. Abdominal: Soft, distended secondary to body habitus, nontender. Bowel sounds present. Neuro: A&O x3. No focal neurological deficits. Results & Data Results & Data Vital Signs (Past 12 Hours) Vital Signs Temp Pulse Resp BP Pulse Ox O2 Del Method 05/07/25 12:13 97.5 F L 75 18 146/73 H 93 Room Air 05/07/25 07:35 97.3 F L 76 18 137/77 94 Room Air 05/07/25 03:50 97.3 F L 73 20 144/83 H 94 Room Air Laboratory Results Reviewed CBC with differential Reviewed BMP/chemistries Reviewed wound culture Reviewed blood cultures Diagnostic Findings Reviewed left foot x-ray Reviewed echocardiogram PG Care Time/CCT Total # of Minutes Spent Total Time Spent with Patient: Total time spent is greater than 50% in coordination of care (as documented) at patient's floor/unit and/or counseling patient: Coding Level of Care Code 85138 SUB INP/OBS CARE 3/50MIN Diagnoses Diabetic Charcot foot E11.610 Gram-positive bacteremia R78.81 Weakness R53.1"
--- NOTE | 2025-05-07 16:02 | Pharmacy Report ---
Pharmacy Glycemic Short Note 2 - Date of Service May 07, 2025 - Glycemic Short BSG Results (Last 24 hours): 05/06/25 05/06/25 05/07/25 17:00 20:38 07:39 Glucose 148 H POC Glucose 191 H 200 H 05/07/25 05/07/25 07:56 11:55 Glucose POC Glucose 149 H 232 H OUTPATIENT ANTIDIABETIC REGIMEN: * Metformin 500 mg PO BID A1c = 7.7% 05/07/25 ASSESSMENT: * Estuardo is a 59 yo T2DM with PMH of hypertension, restrictive lung disease, bipolar disorder, ADD, and mild cognitive impairment. He has been admitted for work up of weakness, hypoxia, and lateral opened wound on his plantar surface. He is currently on prednisone 40 mg PO daily. * Fasting BSG of 149 mg/dL is acceptable. Will continue Lantus BID. Switch to dose per scale given patient is insulin naive, exact needs unknown. * Slightly tighten carb ratio for lunch BSG of 232 mg/dL, however, AM Novolog administered too closely to time of lunch BSG to truly assess. PLAN FOR INPATIENT GLYCEMIC CONTROL: * Hold outpatient oral diabetes medications * Basal insulin * Lantus 0-13-18 units SQ BID (13 units for BSG 140 -180, 18 units for BSG > 180) * Bolus insulin * NovoLog per scale ACHS or Q6hrs while NPO * Goal Range: Low 110 mg/dL - High 140 mg/dL * Correction Factor: 15 mg/dL/unit * Nutritional / Prandial insulin per carb ratio of 1 unit per 4 grams CHO consumed
[2025-05-07] MEDS: LANTUS PER UNIT CHARGE SQ SCH (20:40)
[2025-05-08] MEDS: ACETAMINOPHEN 325 MG TAB PO PRN (03:20)
[2025-05-08] MEDS ORDERED: PNEUMOCOCCAL VACCINE (PCV20) 20-VAL CONJ-DIP CRM/PF 0.5 ML SYR IM ONE (07:25)
[2025-05-08] MEDS ORDERED: INFLUENZA VACC TS2025-26(6m+)/PF (IIV3) 0.5mL Syr IM ONE (07:25)
[2025-05-08 08:27] LABS: Hematocrit (blood only) 36.5 % (42.0-52.0); Hemoglobin 11.9 g/dl (14.0-18.0); Mean Corpuscular Hemoglobin 25.9 pg (25.0-34.0); Mean Corpuscular Volume 79.5 fL (80.0-100.0); Platelet Count 241 K/uL (130-400); RDW Standard Deviation 49.7 fL (36.4-46.3); Red Blood Count 4.59 M/uL (4.70-6.10); White Blood Count 9.57 K/ul (4.8-10.8)
[2025-05-08 08:47] LABS: Anion Gap 7.0 (3-11); Blood Urea Nitrogen 27.0 mg/dl (6-23); Calcium 8.5 mg/dl (8.6-10.3); Carbon Dioxide 27.0 mmol/L (21-32); Chloride 104.0 mmol/L (98-107); Creatinine Clr Calc Pharmacy 124.7 ml/min; Glucose 98.0 mg/dl (70-99(Fasting)); Potassium 4.0 mmol/L (3.5-5.1); Sodium 138.0 mmol/L (136-145)
[2025-05-08] MEDS: LANTUS PER UNIT CHARGE SQ SCH ×2 (09:13→20:43)
--- NOTE | 2025-05-08 12:25 | Hospitalist Progress Note ---
"Date of Service May 08, 2025 Assessment & Plan (1) Diabetic Charcot foot: (2) Gram-positive bacteremia: (3) Weakness: Plan Estuardo is a pleasant 59-year-old man with past medical history of hypertension, T2DM, restrictive lung disease, bipolar disorder, ADD, mild cognitive impair ment. He presented to the ED via EMS with weakness and hypoxia. Workup in ED revealed hypoxia requiring supplemental O2, sinus tachycardia, elevated troponin. CXR and chest CTA without evidence of focal consolidation or PE. On admission examination, found patient to have the appearance of Charcot foot with a lateral opened wound on his plantar surface. #Charcot foot | Diabetic foot wound | Gram positive bacteremia - Left foot XR without evidence of osteomyelitis, no significant soft tissue gas. Leukocytosis has resolved. CRP downtrending - Wound culture Staph, sensitivities pending - Blood cultures with gram-positive cocci clusters in 2/4 bottles - per BCID panel indicates likely MSSA with 99%/99.8% sensitivity/specificity respectively, - Echocardiogram without vegetations Discussed with karol stop zosyn and start cefazolin forbetter MSSA coverage podiatry consulted ID consulted Repeat BC ordered AM 05/08 NWB to LLE #Hypoxia unclear etiology. CXR and chest CTA unremarkable. Respiratory BioFire negative. Procalcitonin, lactate, BNP WNL. Does have history of underlying restrictive lung disease - Required supplemental O2 with 3 L via NC on admission Now stable on room air - suspect related to bacteremia will stop prednisone to encourage wound healing. #Weakness | Dehydration - Dehydration resolved after 2 L NSS. Has good appetite/oral intake. Encourage oral hydration - PT/OT consulted, NWB on LLE - recommending rehab #Elevated troponin | Sinus Tachycardia - Troponin peaked at 193 then downtrended. EKG without ischemic changes. No chest pain - Echocardiogram notes EF 50-55%, grade 2 diastolic dysfunction, mildly dilated left atrium, moderate mitral annular calcification, RVSP elevated at 30-40 mm mg, inferior vena cava mildly dilated - TSH WNL #[id number] 7.7. Home regimen includes metformin 500 mg BID - HELD - Use SSI while admitted - Pharmacy consulted for glycemic management in setting of steroid use #Lower extremity edema Patient takes Lasix 20 mg BID. Appears as though his lower extremity swelling is chronic venous stasis so I question what benefit his Lasix provides, but will continue for now VTE PPx: Lovenox Dispo: Pending podiatry evaluation. PT/OT recommending rehab at this timeno referrals yet made. stable for downgrade to medical Discussed antibiotic regimen with pharmacist Admission and Anticipated Discharge Date Admission Date: May 06, 2025 Supervising Physician Co-Signing Physician Notes Attending Attestation - Chart reviewed, care plan d/w LEANDRO Arboleda. I agree with the evans components of her documentation. Tray Napoles MD Subjective Estuardo seen sitting up in bed, reports feeling better. denies pain in his foot does not remember how long ago he had a pinky toe amputation but thinks > 2 years ago no fevers or chills, appetite is maintained Tele - Sr PVC 70-80s Review of Systems Review of Systems: All systems reviewed & are unremarkable except as noted in Subjective Physical Exam Physical Exam: General: NAD, VS as above Resp: normal respiratory effort, lungs clear to auscultation CV: RRR, no murmur, Abd: normal bowel sounds, non tender, soft Extremities: Moves all extremities venous stasis changes to LE , no erythema or warmth to the left foot, s/p 5th toe amputation. . Dressing removed, open area with yellowing and serous drainage Neuro: A&O x3, Results & Data Results & Data Vital Signs (Past 12 Hours) Vital Signs Temp Pulse Resp BP Pulse Ox O2 Del Method 05/08/25 11:47 97.9 F 80 20 171/90 H 93 Room Air 05/08/25 07:53 97.9 F 71 16 136/78 92 Room Air 05/08/25 04:02 97.9 F 69 20 130/73 93 Room Air Laboratory Results cbc and chemistry reviwed blood cultures reviewed PG Care Time/CCT Total # of Minutes Spent Total Time Spent with Patient: Total time spent is greater than 50% in coordination of care (as documented) at patient's floor/unit and/or counseling patient: Coding Level of Care Code 77813 SUB INP/OBS CARE 3/50MIN Diagnoses Diabetic Charcot foot E11.610 Gram-positive bacteremia R78.81 Weakness R53.1"
--- NOTE | 2025-05-08 13:18 | Pharmacy Report ---
Pharmacy Glycemic Short Note 2 - Date of Service May 08, 2025 - Glycemic Short BSG Results (Last 24 hours): 05/07/25 05/07/25 05/08/25 16:47 20:18 07:39 Glucose POC Glucose 129 H 144 H 104 H 05/08/25 05/08/25 07:56 12:17 Glucose 98 POC Glucose 100 H OUTPATIENT ANTIDIABETIC REGIMEN: * Metformin 500 mg PO BID A1c = 7.7% 05/07/25 ASSESSMENT: 05/08/25: * Blood sugars have been reasonably well-controlled so far * Fasting blood sugar of 104 mg/dL this morning - will decrease basal * Last dose of prednisone today * Anticipate significant loosening of insulin regimen tomorrow 05/07/25: * Estuardo is a 59 yo T2DM with PMH of hypertension, restrictive lung disease, bipolar disorder, ADD, and mild cognitive impairment. He has been admitted for work up of weakness, hypoxia, and lateral opened wound on his plantar surface. He is currently on prednisone 40 mg PO daily. * Fasting BSG of 149 mg/dL is acceptable. Will continue Lantus BID. Switch to dose per scale given patient is insulin naive, exact needs unknown. * Slightly tighten carb ratio for lunch BSG of 232 mg/dL, however, AM Novolog administered too closely to time of lunch BSG to truly assess. PLAN FOR INPATIENT GLYCEMIC CONTROL: * Hold outpatient oral diabetes medications * Basal insulin * Lantus 10 units SC x 1 this morning * Lantus 0-5-10 units SC HS x 1 (see EHR for details) * Bolus insulin * NovoLog per scale ACHS or Q6hrs while NPO * Goal Range: Low 110 mg/dL - High 140 mg/dL * Correction Factor: 15 mg/dL/unit * Nutritional / Prandial insulin per carb ratio of 1 unit per 5 grams CHO consumed
--- NOTE | 2025-05-08 14:54 | Infectious Disease Consult ---
Date of Consultation May 08, 2025 Assessment & Plan (1) MSSA bacteremia: Plan ID Problem List: # MSSA bacteremia # L foot wound, wound Cx + Staph aureus # Obesity # Type 2 diabetes Impression: Estuardo Prado is a 59-year-old man with history of HTN, T2DM, restrictive lung disease, obesity (BMI 53), bipolar disorder, mild cognitive impairment, ADHD, who presented to [facility] on 05/06/25 with weakness and hypoxemia, found to have BCx + MSSA. ID is consulted for MSSA bacteremia. The patient presented with weakness. He was at [employer] and became weak and slid to the floor, and EMS was called. The patient denies noticing any preceding symptoms; no fevers or chills prior to presentation. Thinks he had a L foot wound for at least a week or two but says he is is not sure whether there was any erythema or drainage. In the ED, afebrile. WBC 12.57 Cr 0.94. ESR 67 CRP 40.5 procal 0.12. On exam in the ED, he was found to have a deep and tunneling L lateral foot wound on the plantar surface. CXR and chest CTA without evidence of focal consolidation or PE. RVP negative. BCx from 05/06 grew GPCs in 1/2 sets (2/4 bottles) with BCID + Staph aureus and neg for MRSA (therefore c/w MSSA). L foot wound Cx grew MSSA as well. He was initially placed on daptomycin and pip-tazo, then changed to cefazolin. With elevated troponin, currently felt to be from demand ischemia. He was found to have left lateral foot wound which is deep with tunneling present though no drainage. 05/06 L foot X-ray with soft tissue wound in the mid-plantar foot, no specific findings to suggest osteomyelitis, diffuse soft tissue swelling; amputation of the 5th metatarsal. Podiatry was consulted, awaiting recommendations and awaiting possible L foot MRI. At the time of evaluation, pt denies any pain in back or joints and says he currently feels well. The patient denies any hardware, implants, or lines. Discussion Pt with GPC (BCID c/w MSSA) bacteremia. Suspected source of this is the L foot, which has a plantar ulcer (of uncertain duration, pt thinks at least 1-2 weeks). Wound Cx from the foot are growing Staph aureus as well. Awaiting podiatry recommendations. Agree with L foot MRI for further evaluation of osteomyelitis. TTE was poor quality, and thus would consider LJ. On exam, pt denies any back pain or joint pain. Continue to monitor closely for any new/worsening focal complaints (e.g., joint pain, back pain) with low threshold to image/evaluate as possible metastatic infection. Can continue cefazolin to best cover MSSA. Final abx selection and duration pending BCx clearance, evaluation for potential complications, and podiatry plan. Recommendations: - Continue cefazolin 2g IV q8h - F/u repeat BCx from 05/08. Would consider LJ given technically difficult TTE - F/u 05/06 wound Cx - Repeat BCx q48h until clear x48h - Agree with L foot MRI for further evaluation of osteomyelitis - Continue to monitor closely for any new/worsening focal complaints (e.g., joint pain, back pain) with low threshold to image/evaluate as possible metastatic infection ID will continue to follow. Dimple Parra MD, MHS Infectious Diseases [facility] Connect direct line: [phone] Consultation Information Consultation was provided via telemedicine using two-way real-time interactive telecommunication between the patient and the telemedicine provider. For the duration of the visit, the provider was performing the assessment from a different facility than the patient. This includesuse of bluetooth stethoscope forauscultationperformed by the telepresenter that the telemedicine provider can hear if described in the physical exam. Visiting Teacher contact information: Please call [facility] Call Center [phone]. (Phone Number For Physician Use Only) After establishing a telemedicine visit, patient was: Patient was verified with two unique identifiers, Patient/authorized rep acknowledged consent and understanding and Gave permission to continue telehealth session Time Spent with Patient: Initial => 75 min History of Present Illness Attending Physician: Tray Napoles MD History of Present Illness Estuardo Prado is a 59-year-old man with history of HTN, T2DM, restrictive lung disease, obesity (BMI 53), bipolar disorder, mild cognitive impairment, ADHD, who presented to [facility] on 05/06/25 with weakness and hypoxemia, found to have BCx + MSSA. ID is consulted for MSSA bacteremia. The patient presented with weakness. He was at [employer] and became weak and slid to the floor, and EMS was called. The patient denies noticing any preceding symptoms; no fevers or chills prior to presentation. Thinks he had a L foot wound for at least a week or two but says he is is not sure whether there was any erythema or drainage. In the ED, afebrile. WBC 12.57 Cr 0.94. ESR 67 CRP 40.5 procal 0.12. On exam in the ED, he was found to have a deep and tunneling L lateral foot wound on the plantar surface. CXR and chest CTA without evidence of focal consolidation or PE. RVP negative. BCx from 05/06 grew GPCs in 1/2 sets (2/4 bottles) with BCID + Staph aureus and neg for MRSA (therefore c/w MSSA). L foot wound Cx grew MSSA as well. He was initially placed on daptomycin and pip-tazo, then changed to cefazolin. With elevated troponin, currently felt to be from demand ischemia. He was found to have left lateral foot wound which is deep with tunneling present though no drainage. 05/06 L foot X-ray with soft tissue wound in the mid-plantar foot, no specific findings to suggest osteomyelitis, diffuse soft tissue swelling; amputation of the 5th metatarsal. Podiatry was consulted, awaiting recommendations and awaiting possible L foot MRI. At the time of evaluation, pt denies any pain in back or joints and says he currently feels well. The patient denies any hardware, implants, or lines. Allergies Allergy/AdvReac Type Severity Reaction Status Date / Time povidone-iodine Allergy Intermediate Rash Verified 03/28/25 14:39 shellfish derived Allergy Intermediate RASH Verified 03/28/25 14:39 Home Medications Medication Instructions Recorded Confirmed Type azelastine 137 mcg (0.1 %) nasal 2 spray intranasal DAILY PRN 06/23/22 05/06/25 History spray Congestion fluticasone propionate 50 2 spray intranasal DAILY PRN 06/23/22 05/06/25 History mcg/actuation nasal Allergic Symptoms spray,suspension Compression stockings, Large #2 ea 01/03/25 03/28/25 Rx metformin 500 mg tablet 500 mg PO BID #180 tabs 03/24/25 05/06/25 Rx furosemide 20 mg tablet 20 mg PO BID #60 tabs 03/28/25 05/06/25 Rx Patient History Medical History (Updated 05/08/25 @ 18:24 by Dimple Parra MD) Hearing deficit BILAT Osteoarthritis Hyperlipidemia Morbid obesity ADHD GERD (gastroesophageal reflux disease) Surgical History History of tooth extraction History of adenoidectomy History of colonoscopy Hx of foot surgery RIGHT AND LEFT FOOT SURGERY Family History Father Diabetes Myocardial infarction Other No family history of bleeding disorder Denies family history of Ovarian cancer Prostate cancer Breast cancer Colorectal cancer Social History Smoking Status: Never smoker Second Hand Exposure: No; Do You Dip or Chew Tobacco: No; Hx Alcohol Use: No Hx Substance Use: No Preferred Language: Zimbabwean Communication Ability: Effective Visual Impairment: No Limitations Hearing Ability: Use of Hearing Aid Cardiovascular Technologist Required: No Beliefs That Will Affect Care: None marital status: Single Current Living Situation: Alone current occupational status: employed current occupation: skills Feels Safe at Home: Yes Childhood Exposure to Second-Hand Smoke: No Diet: regular caffeine: Yes during the past year weight has: increased > 10 lbs Dental Care, Regularly: Yes Physical Activity Frequency: Does not Exercise Seatbelt Use: always Sunscreen Use: Yes Assistive Devices: Walker Physical Exam Physical Exam: Exam obtained with assistance of an in-person telepresenter General: Well-appearing, no acute distress HEENT: Conjunctivae non-injected, sclerae anicteric, MMM, OP clear. Resp: Respirations nonlabored. Abd: Soft, nontender, nondistended. Back: No tenderness to palpation along spine Ext: BLE edema. L lateral with tunneling foot wound with overlying eschar, minimal surrounding erythema. R balderas erythema. Skin: As above, no other rashes noted. Neuro: Alert & interactive. Grossly non-focal. Psych: Pleasant, appropriate. Results & Data Vital Signs (Past 12 Hours) Vital Signs Temp Pulse Resp BP Pulse Ox O2 Del Method 05/08/25 11:47 36.6 C 80 20 171/90 H 93 Room Air 05/08/25 07:53 36.6 C 71 16 136/78 92 Room Air 05/08/25 04:02 36.6 C 69 20 130/73 93 Room Air Laboratory Results Diagnostics: 05/07 TTE: technically difficult study, no reported vegetations, normal EF, diastolic dysfunction, mild LA dilation, moderate mitral annular calcification; AV not well visualized, MV leaflets thicken but open well without MR or MS. 05/06 Foot X-ray Soft tissue wound seen about the mid plantar region of the foot. There is diffuse prominent soft tissue swelling. Amputation changes at the fifth metatarsal and mid portion. No destructive bony changes otherwise seen. No significant soft tissue gas. Calcaneal enthesophytes seen. No finding to specifically suggest osteomyelitis. Micro Data: 05/08 BCx x2: PEND 05/06 BCx x2: GPCs in clusters in 1/2 sets (2/4 bottles), BCID + Staph aureus and neg for MRSA 05/06 L foot wound Cx: Staph aureus Antibiotic Summary: cefazolin (05/08 present) daptomycin (05/07) pip-tazo (05/06 05/07)
--- NOTE | 2025-05-08 21:52 | Podiatry Consultation ---
Date of Consultation May 08, 2025 Assessment & Plan (1) MSSA bacteremia: (2) Gram-positive bacteremia: (3) Diabetic Charcot foot: (4) Type 2 diabetes mellitus: Diabetes mellitus oil heaterman insulin use: with oil heaterman use Diabetes mellitus complication status: with diabetic arthropathy Diabetes mellitus complication detail: with neuropathic arthropathy Qualified Code(s): E11.610 - Type 2 diabetes mellitus with diabetic neuropathic arthropathy; Z79.4 - oil heaterman (current) use of insulin Plan Patient examined and evaluated. Ulcer debrided lightly at bedside; Aquacel removed, redressed with Aquacel again and Optifoam border gauze. Radiographs reviewed, suggesting osseous proliferation of the fifth metatarsal shaft distally. This could be consistent with the clinica exam findings of suspected osteomyelitis. MRI would be benficial to evaluate the definitive extent and location of the OM. He will almost certainly require further surgical intervention, from simple bone biopsy if MRI unavailable/inconclusive or more definitive bone resection as needed. Will plan surgery for Thursday or based on imaging. Continue wound care and antibiotics for now. Will continue to follow. Thank you for the consult; we are happy to help. History of Present Illness Reason for Consultation: Left foot ulcer/infection Attending Physician: Tray Napoles MD History of Present Illness Patient seen at bedside this afternoon. States that he has had extensive foot and ankle care for left foot infections in the past, including for osteomyelitis requiring digital amputations. Now, he has a new onset of left foot ulceration develop over the last few weeks. He states that he came to the hospital after developing acute weakness and a fall, which was then noted to have this prominent swelling and infection to the foot. He denies any specific injury or trauma leading to this and also seems to be in-between foot and ankle providers; his prior provider retired around a year ago and he has not maintained follow-up since. He is feeling better now, eating lunch, but did have systemic signs of infection, he believes, leadint to his fall. Allergies Allergy/AdvReac Type Severity Reaction Status Date / Time povidone-iodine Allergy Intermediate Rash Verified 03/28/25 14:39 shellfish derived Allergy Intermediate RASH Verified 03/28/25 14:39 Home Medications Medication Instructions Recorded Confirmed Type azelastine 137 mcg (0.1 %) nasal 2 spray intranasal DAILY PRN 06/23/22 05/06/25 History spray Congestion fluticasone propionate 50 2 spray intranasal DAILY PRN 06/23/22 05/06/25 History mcg/actuation nasal Allergic Symptoms spray,suspension Compression stockings, Large #2 ea 01/03/25 03/28/25 Rx metformin 500 mg tablet 500 mg PO BID #180 tabs 03/24/25 05/06/25 Rx furosemide 20 mg tablet 20 mg PO BID #60 tabs 03/28/25 05/06/25 Rx Patient History Medical History (Updated 05/08/25 @ 21:49 by Estuardo Guajardo DPM) Hearing deficit BILAT Osteoarthritis Hyperlipidemia Morbid obesity ADHD GERD (gastroesophageal reflux disease) Surgical History History of tooth extraction History of adenoidectomy History of colonoscopy Hx of foot surgery RIGHT AND LEFT FOOT SURGERY Family History Father Diabetes Myocardial infarction Other No family history of bleeding disorder Denies family history of Ovarian cancer Prostate cancer Breast cancer Colorectal cancer Social History Smoking Status: Never smoker Second Hand Exposure: No; Do You Dip or Chew Tobacco: No; Hx Alcohol Use: No Hx Substance Use: No Preferred Language: [place] Communication Ability: Effective Visual Impairment: No Limitations Hearing Ability: Use of Hearing Aid Broadband Installer Required: No Beliefs That Will Affect Care: None marital status: Single Current Living Situation: Alone current occupational status: employed current occupation: skills Feels Safe at Home: Yes Childhood Exposure to Second-Hand Smoke: No Diet: regular caffeine: Yes during the past year weight has: increased > 10 lbs Dental Care, Regularly: Yes Physical Activity Frequency: Does not Exercise Seatbelt Use: always Sunscreen Use: Yes Assistive Devices: Walker Review of Systems Review of Systems: All systems reviewed & are unremarkable except as noted in HPI & below Constitutional: + fever, + chills, + fatigue and + weakn ess Eyes: no problem reported Ear, Nose, Mouth, Throat: no problem reported Respiratory: no problem reported Cardiovascular: + edema; no problem reported Gastrointestinal: no nausea, no vomiting and no problem reported Musculoskeletal: + deformity; no problem reported Integumentary: + skin ulcer, + wounds and + erythema Neurologic: + loss of sensation, + numbness and + pa resthesia; no generalized weakness Psychiatric: no problem reported Physical Exam Physical Exam: Left lower extremity exam: DP/PT pulses palpable. Fifth ray resection noted; surgical site well healed. Syndactyly noted to the second and third toes. Erythema and edema noted globally to the left foot. CFT is brisk to the digits. Large full thickness ulceration noted sub 5th metatarsal. This does probe to the bone after removal of the Aquacel packing. No proximal extension or tunneling. No mihai purulence noted. No active bleeding noted. Constitutional: WD/WN, vitals as above + ill appearing and + morbidly obese Eyes: PERRL, conjunctivae normal, anicteric sclerae ENMT: external ear and nose normal, oropharynx normal Mouth: + poor dentition Neck: trachea midline, no thyromegaly normal visual inspection Respiratory: normal respiratory effort; no respiratory distress Cardiovascular: Rate/Rhythm: regular rate and regular rhythm Vessels: posterior tibial pulses present and dorsalis pedis pulses present Chest (Breasts): Chest: normal inspection of chest Gastrointestinal (Abdomen): Inspection/Auscultation: abdomen normal to inspection Percussion/Palpation: + abdomen tender and abdomen soft Musculoskeletal: no cyanosis or clubbing, extremities motor strength 5/5 Head/Neck/Chest: normocephalic and head atraumatic Extremities: extremities normal to inspection Neurologic: awake; no focal motor deficits Psychiatric: A+Ox3, euthymic affect Results & Data Vital Signs (Past 12 Hours) Vital Signs Temp Pulse Resp BP Pulse Ox O2 Del Method 05/08/25 11:47 36.6 C 80 20 171/90 H 93 Room Air
--- NOTE | 2025-05-09 00:10 | Magnetic Resonance Report ---
Exam(s): MRI LEFT FOOT Without Contrast EXAM: MR Left Lower Extremity Without Intravenous Contrast, Foot CLINICAL HISTORY: Reason for exam: Left foot osteomyelitis. TECHNIQUE: Multiplanar magnetic resonance images of the left foot without intravenous contrast. COMPARISON: No relevant prior studies available. FINDINGS: LIGAMENTS: Medial collateral: Unremarkable. Lateral collateral: Unremarkable. Lisfranc: Unremarkable. TENDONS: Flexor: Unremarkable. Extensor: Unremarkable. Peroneal: Unremarkable. Tibialis anterior: Unremarkable. Tibialis posterior: Unremarkable. Muscles: Unremarkable. Fluid: Unremarkable. No joint effusion. Sinus tarsi: Unremarkable as visualized. Tarsal tunnel: Unremarkable. Plantar fascia: Unremarkable. Cartilage: Unremarkable. Bones/joints: Postop changes left partial 5th toe amputation. No acute fracture. No evidence of osteomyelitis or signal abnormality involving the metatarsal remnant. Soft tissues: Slight increase fluid signal consistent with edema within the subcutaneous soft tissues overlying the 4th metatarsal head. IMPRESSION: No acute findings in the left foot. Postop changes left partial 5th toe amputation with subcutaneous soft tissue swelling overlying the 4th metatarsal head. No MRI evidence of osteomyelitis. Electronically signed by: Jerson Gallardo MD 05/09/25 00:09 AM
[2025-05-09 06:42] LABS: Hematocrit (blood only) 38.1 % (42.0-52.0); Hemoglobin 12.5 g/dl (14.0-18.0); Mean Corpuscular Hemoglobin 25.9 pg (25.0-34.0); Mean Corpuscular Volume 78.9 fL (80.0-100.0); Platelet Count 263 K/uL (130-400); RDW Standard Deviation 48.0 fL (36.4-46.3); Red Blood Count 4.83 M/uL (4.70-6.10); White Blood Count 9.32 K/ul (4.8-10.8)
[2025-05-09 06:53] LABS: Anion Gap 8.0 (3-11); Blood Urea Nitrogen 27.0 mg/dl (6-23); Calcium 8.5 mg/dl (8.6-10.3); Carbon Dioxide 27.0 mmol/L (21-32); Chloride 103.0 mmol/L (98-107); Creatinine Clr Calc Pharmacy 106.6 ml/min; Glucose 84.0 mg/dl (70-99(Fasting)); Potassium 4.2 mmol/L (3.5-5.1); Sodium 138.0 mmol/L (136-145)
--- NOTE | 2025-05-09 12:58 | Hospitalist Progress Note ---
"Date of Service May 09, 2025 Assessment & Plan (1) Diabetic Charcot foot: (2) Gram-positive bacteremia: (3) Weakness: Plan Estuardo is a pleasant 59-year-old man with past medical history of hypertension, T2DM, restrictive lung disease, bipolar disorder, ADD, mild cognitive impair ment. He presented to the ED via EMS with weakness and hypoxia. Workup in ED revealed hypoxia requiring supplemental O2, sinus tachycardia, elevated troponin. CXR and chest CTA without evidence of focal consolidation or PE. On admission examination, found patient to have the appearance of Charcot foot with a lateral opened wound on his plantar surface. #Charcot foot | Diabetic foot wound | Gram positive bacteremia - Left foot XR without evidence of osteomyelitis, no significant soft tissue gas. Leukocytosis has resolved. CRP downtrending - Wound culture Staph, sensitivities pending - Blood cultures with gram-positive cocci clusters in 2/4 bottles - per BCID panel indicates likely MSSA with 99%/99.8% sensitivity/specificity respectively, repeat blood cultures: Negative at 24 hours - Echocardiogram without vegetations continue cefazolin podiatry consulted - rec foot MRI that did not show osteo, however possibly will still take patient to the OR later this week. Awaiting updated recommendations 05/09 ID consulted - continue antibiotics, consider 6-week course, with 4 weeks being IV antibiotics with outpatient ID follow-up, consider LJ NWB to LLE #Hypoxia unclear etiology. CXR and chest CTA unremarkable. Respiratory BioFire negative. Procalcitonin, lactate, BNP WNL. Does have history of underlying restrictive lung disease - Required supplemental O2 with 3 L via NC on admission Now stable on room air - suspect related to bacteremia will stopped prednisone to encourage wound healing. #Weakness | Dehydration - Dehydration resolved after 2 L NSS. Has good appetite/oral intake. Encourage oral hydration - PT/OT consulted, NWB on LLE - recommending rehab #Elevated troponin | Sinus Tachycardia - Troponin peaked at 193 then downtrended. EKG without ischemic changes. No chest pain - Echocardiogram notes EF 50-55%, grade 2 diastolic dysfunction, mildly dilated left atrium, moderate mitral annular calcification, RVSP elevated at 30-40 mm mg, inferior vena cava mildly dilated - TSH WNL #[id number] 7.7. Home regimen includes metformin 500 mg BID - HELD - Use SSI while admitted - Pharmacy consulted for glycemic management in setting of steroid use #Lower extremity edema Patient takes Lasix 20 mg BID. Appears as though his lower extremity swelling is chronic venous stasis so I question what benefit his Lasix provides, but will continue for now VTE PPx: Lovenox Dispo: Pending podiatry reevaluation. PT/OT recommending rehab at this timeno referrals yet made. Admission and Anticipated Discharge Date Admission Date: May 06, 2025 Supervising Physician Co-Signing Physician Notes Attending Attestation - Chart reviewed, care plan d/w LEANDRO Arboleda. I agree w/ the evans components of her documentation. Orthotics consult placed for low CAM walker boot for the left foot/ankle as recommended by podiatry. Appreciate PT, OT, podiatry, pharmacy glycemic team, and ID consultations & their recommendations. Tray Napoles MD Subjective patient seen sitting up in bed, reports feeling better. Appetite is returning closer to normal. He denies any pain in his foot. We discussed his MRI results, he is still waiting to be seen by podiatry and ID today. He has no acute concerns. States that his outpatient caseworker is coming to visit him today Review of Systems Review of Systems: All systems reviewed & are unremarkable except as noted in Subjective Physical Exam Physical Exam: General: NAD, VS as above Resp: normal respiratory effort, lungs clear to auscultation CV: RRR, no murmur, Abd: normal bowel sounds, non tender, soft Extremities: Moves all extremities venous stasis changes to LE , no erythema or warmth to the left foot, s/p 5th toe amputation. . Neuro: A&O x3, Results & Data Results & Data Vital Signs (Past 12 Hours) Vital Signs Temp Pulse Resp BP Pulse Ox O2 Del Method 05/09/25 11:28 97.9 F 69 16 149/85 H 98 Room Air 05/09/25 07:28 97.9 F 60 16 147/80 H 98 Room Air Laboratory Results CBC and chemistry reviewed Diagnostic Findings foot MRI reviewed PG Care Time/CCT Total # of Minutes Spent Total Time Spent with Patient: Total time spent is greater than 50% in coordination of care (as documented) at patient's floor/unit and/or counseling patient: Coding Level of Care Code 93647 SUB INP/OBS CARE 2/35MIN Diagnoses Diabetic Charcot foot E11.610 Gram-positive bacteremia R78.81 Weakness R53.1"
--- NOTE | 2025-05-09 14:48 | Infectious Disease Progress Nt ---
Date of Service May 09, 2025 Assessment & Plan (1) MSSA bacteremia: Plan ID Problem List: # MSSA bacteremia # L foot wound c/b SSTI, possible minimal osteomyelitis, wound Cx + MSSA # Obesity # Type 2 diabetes Impression: Estuardo Prado is a 59-year-old man with history of HTN, T2DM, restrictive lung disease, obesity (BMI 53), bipolar disorder, mild cognitive impairment, ADHD, who presented to [facility] on 05/06/25 with weakness and hypoxemia, found to have BCx + MSSA. ID is consulted for MSSA bacteremia. The patient presented with weakness. He was at [employer] and became weak and slid to the floor, and EMS was called. The patient denies noticing any preceding symptoms; no fevers or chills prior to presentation. Thinks he had a L foot wound for at least a week or two but says he is is not sure whether there was any erythema or drainage. In the ED, afebrile. WBC 12.57 Cr 0.94. ESR 67 CRP 40.5 procal 0.12. On exam in the ED, he was found to have a deep and tunneling L lateral foot wound on the plantar surface. CXR and chest CTA without evidence of focal consolidation or PE. RVP negative. BCx from 05/06 grew GPCs in 1/2 sets (2/4 bottles) with BCID + Staph aureus and neg for MRSA (therefore c/w MSSA). L foot wound Cx grew MSSA as well. He was initially placed on daptomycin and pip-tazo, then changed to cefazolin. With elevated troponin, currently felt to be from demand ischemia. He was found to have left lateral foot wound which is deep with tunneling present though no drainage. 05/06 L foot X-ray with soft tissue wound in the mid-plantar foot, no specific findings to suggest osteomyelitis, diffuse soft tissue swelli ng; amputation of the 5th metatarsal. Podiatry was consulted, awaiting recommendations and awaiting possible L foot MRI. At the time of evaluation, pt denies any pain in back or joints and says he cu rrently feels well. The patient denies any hardware, implants, or lines. Discussion Pt with MSSA bacteremia and new L foot wound. Suspect the source of the MSSA bacteremi ais the L foot, which is growing MSSA on superficial wound Cx as well. 05/09 MRI L foot without evidence of osteomyelitis. Per Dr. Guajardo of podiatry, they performed bedside debridement on 05/09; originally they felt that the wound probed to bone, however upon 05/09 evaluation they reported that the wound does not clearly have exposed bone (perhaps a slight layer of soft tissue covering). Perhaps there is very minimal osteomyelitis, but none confirmed on MRI and no definitive exposed bone at this time. Therefore, podiatry is not recommending any further inpatient debridement at this time, and will continue outpatient follow-up. BCx were positive for MSSA in only 1/2 sets, with an apparent source as the foot, and repeat BCx from 05/08 remain reassuringly NGTD thus with fairly rapid clearance of BCx. TTE was poor quality, and thus if 05/08 BCx return positive then would recommend LJ. On exam, pt denies any back pain or joint pain. Continue to monitor closely for any new/worsening focal complaints (e.g., joint pain, back pain) with low threshold to image/evaluate as possible metastatic infection. The patient does not have any hardware/implants in place that would predispose to a more complicated bacteremia. Can continue cefazolin to cover MSSA. Out of caution, given some uncertainty in duration of bacteremia prior to admission as well as poor quality TTE, will recommend a longer 4-week course of IV cefazolin. This may also cover for any potential minimal component of osteomyelitis of the L foot as well. Recommendations: - Continue cefazolin 2g IV q8h to complete a 4-week course (05/08/25 06/04/25) for MSSA bacteremia via PICC. If discharging home, can change to cefazolin 6g IV daily continuous infusion to complete the course. - Can place PICC once 05/08 BCx are clear x48h - F/u repeat BCx from 05/08 until finalized to ensure it remains negative. If 05/08 BCx return positive then would recommend LJ - Continue to monitor closely for any new/worsening focal complaints (e.g., joint pain, back pain) with low threshold to image/evaluate as possible metastatic infection - Ensure close follow-up with podiatry - Recommend follow-up with ID. Please see below for OPAT, follow-up, and monitoring details Outpatient Discharge summary, Discharging Physician please order the following on discharge: Diagnosis: MSSA bacteremia Organism: MSSA Antibiotic (dose and frequency): cefazolin 2g IV q8h (if discharging home, can change to cefazolin 6g IV daily continuous infusion) Start of therapy: 05/08/25 End of therapy: 06/04/25 Labs should be faxed to: ID office, shirley Yokasta [facility] [phone] Labs needed and frequency: CBC w/ diff, CMP, ESR, CRP Please follow up with [facility] in outpatient clinic: Clinic Address [address] [place] [address] Office (P) [phone] Appointment-time frame: 3-4 weeks Plan discussed with primary team. Thank you for letting ID participate in the care of this patient. ID will sign off at this time. If questions, please contact the [facility] call center at [phone]. Dimple Parra MD, MHS Infectious Diseases [facility] direct line: [phone] Admission and Anticipated Discharge Date Admission Date: May 06, 2025 Subjective Subsequent visit was provided via telemedicine using two-way real-time inte ractive telecommunication between the patient and the telemedicine provider. For the duration of the visit, the provider was performing the assessment from a different facility than the patient. This includesuse of bluetooth stethoscope forauscultationperformed by the telepresenter that the telemedicine provider can hear if described in the physical exam. [employer] contact information: Please call [facility] Call Center . (Phone Number For Physician Use Only) After establishing a telemedicine visit, patient was: Patient was verified with two unique identifiers, Patient/authorized rep acknowledged consent and understanding and Gave permission to continue telehealth session Time Spent with Patient: Subsequent => 55 min - Afebrile, WBC 9.32 - 05/09 MRI L foot without evidence of osteomyelitis - Per Dr. Guajardo of podiatry, they performed bedside debridement today 05/09 and reported that the wound does not clearly have exposed bone (perhaps a slight layer of soft tissue). At this time, recommending outpatient follow-up. Physical Exam Physical Exam: Exam obtained with assistance of an in-person telepresenter General: Well-appearing, no acute distress HEENT: Conjunctivae non-injected, sclerae anicteric, MMM, OP clear. Resp: Respirations nonlabored. Ext: BLE edema. L lateral with tunneling foot wound, minimal surrounding erythema. Skin: As above, no other rashes noted. Neuro: Alert & interactive. Grossly non-focal. Psych: Pleasant, appropriate. Results & Data Vital Signs (Past 12 Hours) Vital Signs Temp Pulse Resp BP Pulse Ox O2 Del Method 05/09/25 11:28 36.6 C 69 16 149/85 H 98 Room Air 05/09/25 07:28 36.6 C 60 16 147/80 H 98 Room Air Laboratory Results Diagnostics: 05/09 MRI L foot No acute findings in the left foot. Postop changes left partial 5th toe amputation with subcutaneous soft tissue swelling overlying the 4th metatarsal head. No MRI evidence of osteomyelitis. 05/07 TTE: technically difficult study, no reported vegetations, normal EF, diastolic dysfunction, mild LA dilation, moderate mitral annular calcification; AV not well visualized, MV leaflets thicken but open well without MR or MS. 05/06 Foot X-ray Soft tissue wound seen about the mid plantar region of the foot. There is diffuse prominent soft tissue swelling. Amputation changes at the fifth metatarsal and mid portion. No destructive bony changes otherwise seen. No significant soft tissue gas. Calcaneal enthesophytes seen. No finding to specifically suggest osteomyelitis. Micro Data: 05/08 BCx x2: NGTD 05/06 BCx x2: MSSA in 1/2 sets (2/4 bottles), BCID + Staph aureus and neg for MRSA 05/06 L foot wound Cx: Staph aureus Antibiotic Summary: cefazolin (05/08 present) daptomycin (05/07) pip-tazo (05/06 05/07)
--- NOTE | 2025-05-09 16:30 | Podiatry Progress Note ---
Date of Service May 09, 2025 Assessment & Plan (1) MSSA bacteremia: (2) Gram-positive bacteremia: (3) Diabetic Charcot foot: (4) Type 2 diabetes mellitus: Plan Patient examined and evaluated. - More extensive sharp debridement of this wound was performed at bedside today. - Foot was redressed with OptiFoam gauze and Betadine. - With no evidence of osteomyelitis currently on imaging and clinical exam, he could benefit from outpatient care with his continued improvement. - Would recommend antibiotic guidance based on infectious disease suggestion. - He may require further surgical intervention in the future if this fails to heal and would benefit from care from the [facility] wound care clinic. - We will continue to follow while inpatient. Admission and Anticipated Discharge Date Admission Date: May 06, 2025 Subjective Patient seen at bedside. He denies any new or worsening complaints. He states he is feeling well and talking to his Outpatient/county telephonic nurse case manager Today. He states he is feeling better on the antibiotics and does believe he is getting stronger as well. He is seeing physical therapy later. Review of Systems Constitutional: + fever, + chills, + fatigue and + weakn ess Eyes: no problem reported Ear, Nose, Mouth, Throat: no problem reported Respiratory: no problem reported Cardiovascular: + edema; no problem reported Gastrointestinal: no nausea, no vomiting and no problem reported Musculoskeletal: + deformity; no problem reported Integumentary: + skin ulcer, + wounds and + erythema Neurologic: + loss of sensation, + numbness and + pa resthesia; no generalized weakness Psychiatric: no problem reported Physical Exam Physical Exam: Left lower extremity exam: DP/PT pulses palpable. Fifth ray resection noted; surgical site well healed. Syndactyly noted to the second and third toes. Erythema and edema noted globally to the left foot, Improved since yesterday. CFT is brisk to the digits. Large full thickness ulceration noted sub 5th metatarsal. this wound was debrided sharply with a 15 blade and Tissue nipper. The wound bed is roughly 80% granular and 20% fibrotic with no mihai purulence and no proximal tracking. Most of the wound bed consists of this granular base, though there is a central portion of those probe deeper. The end step is for but may potentially not be bone here. This would be more consistent with the MRI findings of no significantEvidence of osteomyelitis. Specifically, his ulceration is underlying the resected fifth metatarsal and not the fourth metatarsal where the bone marrow edema is noted. Constitutional: WD/WN, vitals as above + ill appearing and + morbidly obese Eyes: PERRL, conjunctivae normal, anicteric sclerae ENMT: external ear and nose normal, oropharynx normal Mouth: + poor dentition Neck: trachea midline, no thyromegaly normal visual inspection Respiratory: normal respiratory effort; no respiratory distress Cardiovascular: Rate/Rhythm: regular rate and regular rhythm Vessels: posterior tibial pulses present and dorsalis pedis pulses present Chest (Breasts): Chest: normal inspection of chest Gastrointestinal (Abdomen): Inspection/Auscultation: abdomen normal to inspection Percussion/Palpation: + abdomen tender and abdomen soft Musculoskeletal: no cyanosis or clubbing, extremities motor strength 5/5 Head/Neck/Chest: normocephalic and head atraumatic Extremities: extremities normal to inspection Neurologic: awake; no focal motor deficits Psychiatric: A+Ox3, euthymic affect Results & Data Results & Data Vital Signs (Past 12 Hours) Vital Signs Temp Pulse Resp BP Pulse Ox O2 Del Method 05/09/25 15:20 36.4 C L 62 18 135/76 95 Room Air 05/09/25 11:28 36.6 C 69 16 149/85 H 98 Room Air 05/09/25 07:28 36.6 C 60 16 147/80 H 98 Room Air (4) Type 2 diabetes mellitus Diabetes mellitus senior living insulin use: with senior living use Diabetes mellitus complication status: with diabetic arthropathy Diabetes mellitus complication detail: with neuropathic arthropathy Qualified Code(s): E11.610 - Type 2 diabetes mellitus with diabetic neuropathic arthropathy; Z79.4 - senior care (current) use of insulin
--- NOTE | 2025-05-10 10:31 | Hospitalist Progress Note ---
"Date of Service May 10, 2025 Assessment & Plan (1) Diabetic foot ulcer: (2) Gram-positive bacteremia: (3) Weakness: Plan Estuardo is a pleasant 59-year-old man with past medical history of hypertension, T2DM, restrictive lung disease, bipolar disorder, ADD, mild cognitive impairme nt. He presented to the ED via EMS with weakness and hypoxia. Workup in ED revealed hypoxia requiring supplemental O2, sinus tachycardia, elevated troponin. CXR and chest CTA without evidence of focal consolidation or PE. On admission examination, found patient to have the appearance of Charcot foot with a lateral opened wound on his plantar surface. #Diabetic foot wound | Gram positive bacteremia - Left foot XR without evidence of osteomyelitis, no significant soft tissue gas. Leukocytosis has resolved. CRP downtrending. Echo without vegitations. - Wound culture Staph, sensitivities pending - Blood cultures: staph repeat blood cultures 05/08: Negative at 48 hours continue cefazolin podiatry consulted - rec foot MRI that did not show osteo, bedside debridement x2, plan for IV antibiotics and outpatient WC, if worsening may need OR in the future ID consulted - plan for cefazolin for 4 week course (EOT 06/04), Follow up with ID ([facility]) in 3-4 weeks, weekly labs discussed with podiatry, okay for full weightbearing. Consent for PICC line placement today #Hypoxia unclear etiology. CXR and chest CTA unremarkable. Respiratory BioFire negative. Procalcitonin, lactate, BNP WNL. Does have history of underlying restrictive lung disease - Required supplemental O2 with 3 L via NC on admission Now stable on room air - suspect related to bacteremia will stopped prednisone to encourage wound healing. #Weakness | Dehydration - Dehydration resolved after 2 L NSS. Has good appetite/oral intake. Encourage oral hydration - PT/OT consulted- recommending rehab #Elevated troponin | Sinus Tachycardia - Troponin peaked at 193 then downtrended. EKG without ischemic changes. No chest pain - Echocardiogram notes EF 50-55%, grade 2 diastolic dysfunction, mildly dilated left atrium, moderate mitral annular calcification, RVSP elevated at 30-40 mm mg, inferior vena cava mildly dilated - TSH WNL #[id number] 7.7. Home regimen includes metformin 500 mg BID - HELD - Use SSI while admitted - Pharmacy consulted for glycemic management in setting of steroid use #Lower extremity edema Patient takes Lasix 20 mg BID. Appears as though his lower extremity swelling is chronic venous stasis so I question what benefit his Lasix provides, but will continue for now VTE PPx: Lovenox Dispo: awaiting safe discharge dispo - will need IV abx, PICC line to be placed today Case discussed with podiatry 05/10 Admission and Anticipated Discharge Date Admission Date: May 06, 2025 Subjective Seen sitting up in bed - worried about his car [place] in the [employer] [place] We discussed the need for IV antibiotics Review of Systems Review of Systems: All systems reviewed & are unremarkable except as noted in Subjective Physical Exam Physical Exam: General: NAD, vitals as above, sitting up in the bed Pulm: breathing unlabored CV: well perfused extremities: moves all extremities Results & Data Results & Data Vital Signs (Past 12 Hours) Vital Signs Temp Pulse Resp BP Pulse Ox O2 Del Method 05/10/25 06:58 97.3 F L 59 L 16 152/77 H 92 Room Air 05/09/25 23:17 97.5 F L 60 18 153/95 H 94 Room Air Laboratory Results BSG reviewed PG Care Time/CCT Total # of Minutes Spent Total Time Spent with Patient: Total time spent is greater than 50% in coordination of care (as documented) at patient's floor/unit and/or counseling patient: Coding Level of Care Code 69322 SUB INP/OBS CARE 2/35MIN Diagnoses Diabetic foot ulcer E11.621; L97.509 Gram-positive bacteremia R78.81 Weakness R53.1"
--- NOTE | 2025-05-10 12:47 | Pharmacy Report ---
Pharmacy Glycemic Sign Off Nt - Date of Service May 10, 2025 - Assessment & Plan ASSESSMENT: * Pharmacy was consulted by Annabel Alexis PA-C on 05/06/25 for glycemic control and to write orders per [facility] inpatient glycemic control protocol. * Major changes made by pharmacy to antidiabetic regimen include: * titration of SC basal/bolus regimen with changing steroids (now discontinued) * Patient has been receiving/requiring minimal insulin for adequate glycemic control * BSGs ranging 81-125 mg/dl * Regimen has only required minor adjustments over the past 48hrs to achieve this level of control * Do not anticipate further changes in patient status that would quickly deterio rate glycemic control (i.e. patient to be NPO for upcoming procedure, steroids tapering, starting tube feedings, etc). PLAN FOR INPATIENT GLYCEMIC CONTROL: No changes needed to current regimen. * Hold basal * Continue NovoLog per scale ACHS/Q6hrs while NPO * Goal range = 120-160 mg/dl * CF = 45 mg/dl/unit * CR = 1 unit for ever 15 g CHO consumed * Pharmacy is signing off of glycemic consult and will no longer be making adjustments to inpatient regimen. Please feel free to re-consult if needed. Thank you.
--- NOTE | 2025-05-10 15:25 | Podiatry Progress Note ---
Date of Service May 10, 2025 Assessment & Plan (1) MSSA bacteremia: (2) Gram-positive bacteremia: (3) Diabetic Charcot foot: (4) Type 2 diabetes mellitus: Plan Patient examined and evaluated. - IV port has been placed at this point. Blood cultures continued to be negati ve since May 06. - Foot Will be redressed with OptiFoam gauze and Aquacel by nursing. - With no evidence of osteomyelitis currently on imaging and clinical exam, he could benefit from outpatient care with his continued improvement. - Would recommend antibiotic guidance based on infectious disease suggestion/notes. - He may require further surgical intervention in the future if this fails to he al and would benefit from care from the [facility] wound care clinic. - We will be happy to follow outpatient once he is discharged for wound care and potential surgical intervention as needed. Otherwise, he is a candidate for long-term at risk care as well, which we will schedule him for every 9 weeks to ideally prevent future infections. - With likely discharge in the next 1 or 2 days, we will plan on signing off for now. Please reconsult as necessary if his condition deteriorates or he changes his mind regarding surgical intervention. Admission and Anticipated Discharge Date Admission Date: May 06, 2025 Subjective Patient seen at bedside. He denies any new concerns. He did have his IV port placed today. He admits to still feeling improved since hospitalization. Review of Systems Constitutional: no fever, no chills, no fatigue and no weakness Eyes: no problem reported Ear, Nose, Mouth, Throat: no problem reported Respiratory: no problem reported Cardiovascular: + edema; no problem reported Gastrointestinal: no nausea, no vomiting and no problem reported Musculoskeletal: + deformity; no problem reported Integumentary: + skin ulcer, + wounds and + erythema Neurologic: + loss of sensation, + numbness and + pa resthesia; no generalized weakness Psychiatric: no problem reported Physical Exam Physical Exam: Left lower extremity exam: DP/PT pulses palpable. Fifth ray resection noted; surgical site well healed. Syndactyly noted to the second and third toes. Erythema and edema noted globally to the left foot, Improved since yesterday. CFT is brisk to the digits. Large full thickness ulceration noted sub 5th metatarsal. this wound was debrided sharply with a 15 blade and Tissue nipper. The wound bed is roughly 80% granular and 20% fibrotic with no mihai purulence and no proximal tracking. Most of the wound bed consists of this granular base, though there is a central portion of those probe deeper. The end step is for but may potentially not be bone here. This would be more consistent with the MRI findings of no significantEvidence of osteomyelitis. Specifically, his ulceration is underlying the resected fifth metatarsal and not the fourth metatarsal where the bone marrow edema is noted. Constitutional: WD/WN, vitals as above + ill appearing and + morbidly obese Eyes: PERRL, conjunctivae normal, anicteric sclerae ENMT: external ear and nose normal, oropharynx normal Mouth: + poor dentition Neck: trachea midline, no thyromegaly normal visual inspection Respiratory: normal respiratory effort; no respiratory distress Cardiovascular: Rate/Rhythm: regular rate and regular rhythm Vessels: posterior tibial pulses present and dorsalis pedis pulses present Chest (Breasts): Chest: normal inspection of chest Gastrointestinal (Abdomen): Inspection/Auscultation: abdomen normal to inspection Percussion/Palpation: + abdomen tender and abdomen soft Musculoskeletal: no cyanosis or clubbing, extremities motor strength 5/5 Head/Neck/Chest: normocephalic and head atraumatic Extremities: extremities normal to inspection Neurologic: awake; no focal motor deficits Psychiatric: A+Ox3, euthymic affect Results & Data Results & Data Vital Signs (Past 12 Hours) Vital Signs Temp Pulse Resp BP Pulse Ox O2 Del Method 05/10/25 11:00 36.9 C 66 149/76 H 93 Room Air 05/10/25 06:58 36.3 C L 59 L 16 152/77 H 92 Room Air (4) Type 2 diabetes mellitus Diabetes mellitus complication detail: with neuropathic arthropathy Diabetes mellitus complication status: with diabetic arthropathy Diabetes mellitus exterminator helper termite insulin use: with long-term use Qualified Code(s): E11.610 - Type 2 diabetes mellitus with diabetic neuropathic arthropathy; Z79.4 - supervisor intermediates (current) use of insulin
--- NOTE | 2025-05-11 13:09 | Ultrasound Report ---
US arterial duplex LE LT HISTORY: 59 years-old Male diabetic ulcer, bactermia COMPARISON: None TECHNIQUE: Multiple real-time sonographic images of the left lower arterial structures were obtained assessing grayscale appearance, color and spectral flow FINDINGS: Limited exam secondary to patient body habitus. Subcutaneous edema. Triphasic waveforms are noted wit hin the common and superficial femoral arteries. Biphasic waveforms are seen within the popliteal art elbert with peak systolic velocities of 39 cm/s. Nonvisualization of the peroneal artery. Biphasic wavef orms within the posterior tibial artery with mildly elevated peak systolic velocities measuring up to 154 cm/s. No arterial occlusion. Biphasic waveforms in the dorsalis pedis artery. IMPRESSION: 1. No arterial occlusion identified. 2. Nonvisualization of the peroneal artery. 3. Elevated peak systolic velocities within the posterior tibial artery compatible with luminal steno sis. ACT 112: Negative or not required by law. The above report was generated using voice recognition software. It may contain grammatical, syntax o r spelling errors. Electronically signed by: Robert Harrison M.D. 05/11/2025 1:08 PM
--- NOTE | 2025-05-11 15:48 | Hospitalist Progress Note ---
"Date of Service May 11, 2025 Assessment & Plan (1) Diabetic foot ulcer: (2) Weakness: (3) MSSA bacteremia: Plan Estuardo is a pleasant 59-year-old man with past medical history of hypertension, T2DM, restrictive lung disease, bipolar disorder, ADD, mild cognitive impairment. He presented to the ED via EMS with weakness and hypoxia. Workup in ED revealed hypoxia requiring supplemental O2, sinus tachycardia, elevated troponin. CXR and chest CTA without evidence of focal consolidation or PE. On admission examination, found patient to have the appearance of Charcot foot with a lateral opened wound on his plantar surface. #Diabetic foot wound | MSSA bacteremia | Staph aureus sepsis POA - Left foot XR without evidence of osteomyelitis, no significant soft tissue gas. Leukocytosis has resolved. CRP downtrending. Echo without vegetations. Aterial duplex without obstructions. Wound / blood culture Staph, Repeat blood cultures 05/08: Negative at 48 hours Continue cefazolin podiatry consulted - rec foot MRI that did not show osteo, bedside debridement x2, plan for IV antibiotics and outpatient WC, if worsening may need OR in the future ID consulted - plan for cefazolin for 4 week course (EOT 06/04), Follow up with ID ([facility]) in 3-4 weeks, weekly labs Midline inserted 05/10 Discussed with podiatry, okay for full weightbearing with boot #Hypoxia unclear etiology. CXR and chest CTA unremarkable. Respiratory BioFire negative. Procalcitonin, lactate, BNP WNL. Does have history of underlying restrictive lung disease - Required supplemental O2 with 3 L via NC on admission Now stable on room air - suspect related to bacteremia will stopped prednisone to encourage wound healing. #Weakness | Dehydration - Dehydration resolved after 2 L NSS. Has good appetite/oral intake. Encourage oral hydration - PT/OT consulted- recommending rehab #Elevated troponin | Sinus Tachycardia - Troponin peaked at 193 then downtrended. EKG without ischemic changes. No chest pain - Echocardiogram notes EF 50-55%, grade 2 diastolic dysfunction, mildly dilated left atrium, moderate mitral annular calcification, RVSP elevated at 30-40 mm mg, inferior vena cava mildly dilated - TSH WNL #[id number] 7.7. Home regimen includes metformin 500 mg BID - HELD - Use SSI while admitted - Pharmacy consulted for glycemic management in setting of steroid use #Lower extremity edema Patient takes Lasix 20 mg BID. Appears as though his lower extremity swelling is chronic venous stasis so I question what benefit his Lasix provides, but will continue for now VTE PPx: Lovenox Dispo: awaiting safe discharge dispo - will need IV abx, close podiatry/wound care follow up Case discussed with podiatry 05/10 Admission and Anticipated Discharge Date Admission Date: May 06, 2025 Supervising Physician Co-Signing Physician Notes I did not see or examine the patient. I verified all evans points and agree with Jessica Arboleda PA-C with the following exceptions and/or additions: switched diagnosis to MSSA bacteremia, recommended US arterial dopple to assess ability for wound healing, otherwise no changes Subjective patient seen transition suffering from bed to chair. Overall states that he is feeling well. Reports good appetite. Denies foot pain. Review of Systems Review of Systems: All systems reviewed & are unremarkable except as noted in Subjective Physical Exam Physical Exam: General: NAD, vitals as above, sitting on the side of bed Pulm: breathing unlabored CV: well perfused extremities: moves all extremities, palpable pedal pulses Results & Data Results & Data Vital Signs (Past 12 Hours) Vital Signs Temp Pulse Resp BP Pulse Ox O2 Del Method 05/11/25 09:19 Room Air 05/11/25 07:32 97.7 F 63 16 148/79 H 91 Room Air Laboratory Results Plan of care BSG reviewed PG Care Time/CCT Total # of Minutes Spent Total Time Spent with Patient: Total time spent is greater than 50% in coordination of care (as documented) at patient's floor/unit and/or counseling patient: Coding Level of Care Code 59594 SUB INP/OBS CARE 2/35MIN Diagnoses Diabetic foot ulcer E11.621; L97.509 Weakness R53.1 MSSA bacteremia R78.81; B95.61"
--- NOTE | 2025-05-12 15:54 | Hospitalist Progress Note ---
"Date of Service May 12, 2025 Assessment & Plan (1) Diabetic Charcot foot: (2) Gram-positive bacteremia: (3) Weakness: Plan Estuardo is a pleasant 59-year-old man with past medical history of, T2DM, restrictive lung disease, bipolar disorder, ADD, HTN, mild cognitive impairment. He presented to the ED via EMS with weakness and hypoxia. Workup in ED revealed hypoxia requiring supplemental O2, sinus tachycardia, elevated troponin. CXR and chest CTA without evidence of focal consolidation or PE. On admission examination, found patient to have the appearance of Charcot foot with a lateral opened wound on his plantar surface. #Charcot foot | Diabetic foot wound | Gram positive bacteremia - s/p bedside debridment of wound by podiatry podiatry monitoring and will f/u outpaatient - Wound culture Staph Aureus sensitive to bactrim, oxacillin, vancomycin, linezolid - Blood cultures with gram-positive cocci clusters in 2/4 bottles - per BCID panel indicates likely MSSA with 99%/99.8% sensitivity/specificity respectively, repeat blood cultures: Negative at 24 hours - Echocardiogram without vegetations continue cefazolin ID consulted - continue antibiotics, consider 6-week course, with 4 weeks being IV antibiotics with outpatient ID follow-up, consider LJ NWB to LLE #Hypoxia unclear etiology. CXR and chest CTA unremarkable. Respiratory BioFire negative. Procalcitonin, lactate, BNP WNL. Does have history of underlying restrictive lung disease - Required supplemental O2 with 3 L via NC on admission Now stable on room air - suspect related to bacteremia will stopped prednisone to encourage wound healing . #Weakness | Dehydration - Dehydration resolved after 2 L NSS. Has good appetite/oral intake. Encourage oral hydration - PT/OT consulted, NWB on LLE - recommending rehab #Elevated troponin | Sinus Tachycardia - Troponin peaked at 193 then downtrended. EKG without ischemic changes. No chest pain - Echocardiogram notes EF 50-55%, grade 2 diastolic dysfunction, mildly dilated left atrium, moderate mitral annular calcification, RVSP elevated at 30-40 mm mg, inferior vena cava mildly dilated - TSH WNL #[id number] 7.7. Home regimen includes metformin 500 mg BID - HELD - Use SSI while admitted - Pharmacy consulted for glycemic management in setting of steroid use #Lower extremity edema Patient takes Lasix 20 mg BID. Appears as though his lower extremity swelling is chronic venous stasis so I question what benefit his Lasix provides, but will continue for now VTE PPx: Lovenox Dispo: Pending podiatry reevaluation. PT/OT recommending rehab at this timeno referrals yet made. Admission and Anticipated Discharge Date Admission Date: May 06, 2025 Subjective no worsening left foot pain awaiting placement to LTAC no chest pain, no shortness of breath no abdominal pain he was hypoxic on admission, currently on room air he on lasix for lymphedmea Physical Exam Physical Exam: VITALS: Reviewed. WEIGHT/BMI reviewed. GEN: Healthy appearing, well overweight; obese HEENT -Head: NC/AT; -Mouth and throat: MMM. Normal gums, muc jose, palate,. Good dentition. NECK: Supple, with no masses. CV: RRR, no m/r/g. LUNGS: CTAB, no w/r/c. ABD: Soft, NT/ND, NBS, no masses or organomegaly. SKIN: left fifth toe amputation; no discharge; catarino dorsalis pulse NEURO:AAox3 Results & Data Results & Data Vital Signs (Past 12 Hours) Vital Signs Temp Pulse Resp BP Pulse Ox O2 Del Method 05/12/25 15:12 36.4 C L 61 18 152/77 H 91 Room Air 05/12/25 10:36 Room Air 05/12/25 08:30 Room Air 05/12/25 07:55 36.6 C 54 L 20 137/79 92 Room Air Laboratory Results Laboratory Results - last 72 hr 05/09/25 05/09/25 05/10/25 16:32 20:41 07:08 POC Glucose 110 H 116 H 90 05/10/25 05/10/25 05/10/25 11:31 16:54 20:05 POC Glucose 125 H 106 H 125 H 05/11/25 05/11/25 05/11/25 07:37 16:24 20:05 POC Glucose 97 134 H 129 H 05/12/25 05/12/25 07:47 11:30 POC Glucose 92 134 H Medications Administered Current Inpatient Medications Acetaminophen (Acetaminophen 325 Mg Tab) 650 mg PO Q4H PRN PRN Reason: Pain or Fever Stop: 06/05/25 16:42 Last Admin: 05/11/25 23:02 Dose: 650 mg Al Hydrox/Mg Hydrox/Simethicone (Aluminum/Magnesium Susp 30 Ml Udc) 15 ml PO Q4H PRN PRN Reason: Dyspepsia Stop: 06/05/25 16:42 Dextrose (Dextrose 50% 50 Ml Syringe) 25 - 50 ml IV UD PRN; Protocol PRN Reason: Hypoglycemia Protocol Stop: 06/05/25 16:42 Enoxaparin Sodium (Enoxaparin Inj 40 Mg/0.4 Ml Syr) 40 mg SQ QAM YOHAN Stop: 06/06/25 08:59 Last Admin: 05/12/25 08:48 Dose: 40 mg Furosemide (Furosemide 20 Mg Tab) 20 mg PO BID YOHAN Stop: 06/05/25 20:59 Last Admin: 05/12/25 08:47 Dose: 20 mg Glucagon (Glucagon For Inj 1 Mg Vial) 1 mg SQ UD PRN; Protocol PRN Reason: Hypoglycemia Protocol Stop: 06/05/25 16:42 Glucose (Glucose 40% Gel 15 Gm Tube) 15 - 30 gm PO UD PRN; Protocol PRN Reason: Hypoglycemia Protocol Stop: 06/05/25 16:42 Glucose (Glucose 10 Tab/Tube) 4 - 8 tab PO UD PRN; Protocol PRN Reason: Hypoglycemia Protocol Stop: 06/05/25 16:42 Heparin Sodium (Beef Lung) (Heparin 10 Unit/Ml 5 Ml Flush) 5 ml FLUSH PRN PRN PRN Reason: Flush Stop: 06/09/25 13:20 Last Admin: 05/12/25 05:49 Dose: 5 ml Cefazolin Sodium (Ancef 2000mg) 2,000 mg in 15 mls @ 3.75 mls/min IV Q8H YOHAN Stop: 05/22/25 13:59 Last Admin: 05/12/25 13:49 Dose: 3.75 mls/min Insulin Aspart (Insulin Aspart Per Unit Charge) 0 units SC ACHS YOHAN Stop: 06/05/25 16:42 Last Admin: 05/12/25 11:58 Dose: 2 units Melatonin (Melatonin 3 Mg Tab) 3 mg PO HS PRN PRN Reason: Sleep Stop: 06/05/25 16:42 Miscellaneous (Carbohydrates For Hypoglycemia ) 15 - 30 gm PO UD PRN PRN Reason: Hypoglycemia Protocol Stop: 06/05/25 16:42 Ondansetron HCl (Ondansetron Inj 2 Mg/Ml 2 Ml Vial) 4 mg IV Q6H PRN PRN Reason: Nausea Stop: 06/05/25 16:42 Polyethylene Glycol (Polyethylene (Miralax) 17 Gm Pack) 17 gm PO DAILY PRN PRN Reason: Constipation Stop: 06/05/25 16:42 PG Care Time/CCT Total # of Minutes Spent Total Time Spent with Patient: Total time spent is greater than 50% in coordination of care (as documented) at patient's floor/unit and/or counseling patient: Coding Level of Care Code 59835 SUB INP/OBS CARE 08/06MIN Diagnoses Diabetic Charcot foot E11.610 Gram-positive bacteremia R78.81 Weakness R53.1 Time Spent (min) 20"
[2025-05-12] MEDS: MELATONIN 3 MG TAB PO PRN (22:02)
[2025-05-13 06:34] LABS: Hematocrit (blood only) 40.6 % (42.0-52.0); Hemoglobin 13.4 g/dl (14.0-18.0); Mean Corpuscular Hemoglobin 25.8 pg (25.0-34.0); Mean Corpuscular Volume 78.1 fL (80.0-100.0); Platelet Count 274 K/uL (130-400); RDW Standard Deviation 47.3 fL (36.4-46.3); Red Blood Count 5.20 M/uL (4.70-6.10); White Blood Count 6.25 K/ul (4.8-10.8)
[2025-05-13 07:05] LABS: Alanine Aminotransferase 15.0 U/L (7-52); Albumin Globulin Ratio 1.0 (0.9-2); Albumin Level 3.7 gm/dl (3.4-5.0); Alkaline Phosphatase 85.0 U/L (34-104); Anion Gap 10.0 (3-11); Bilirubin,Total 0.4 mg/dl (0.2-1.0); Blood Urea Nitrogen 21.0 mg/dl (6-23); Calcium 9.3 mg/dl (8.6-10.3); Carbon Dioxide 28.0 mmol/L (21-32); Chloride 99.0 mmol/L (98-107); Creatinine Clr Calc Pharmacy 112.5 ml/min; Globulin 3.6 gm/dl (2.5-4.0); Glucose 106.0 mg/dl (70-99(Fasting)); Potassium 4.0 mmol/L (3.5-5.1); Sodium 137.0 mmol/L (136-145); Total Protein 7.3 gm/dl (6.0-8.3)
--- NOTE | 2025-05-13 11:58 | Hospitalist Progress Note ---
"Date of Service May 13, 2025 Assessment & Plan (1) Diabetic Charcot foot: (2) Gram-positive bacteremia: (3) Weakness: Plan Estuardo is a pleasant 59-year-old man with past medical history of, T2DM, restrictive lung disease, bipolar disorder, ADD, HTN, mild cognitive impairment. He presented to the ED via EMS with weakness and hypoxia on 05/06. #Charcot foot | Diabetic foot wound | Gram positive bacteremia Left Foot XR: no finding to suggest OM Left foot MRI: no acute findings in left foot. post-op changes left partial 5th toe amputation w/ subcutaneous soft tissue swelling overlying 4th metatarsal head. No MRI evidence of OM. Duplex LE scan: no arterial occlusion identified. nonvisualization of peroneal artery. elevated peak systolic velocities within posterior tibial artery compatible w/ luminal stenosis. Left foot wound culture 05/06: + for MSSA BC + in 2/4 bottles on 05/06 for MSSA; follow up repeat BC from are negative to date. Echo: no vegetations visualized Podiatry was consulted: redress w/ Optifoam gauze & Aquacel by nursing. abx as recommended by ID, follow up outpatient. Cam boot given, WBAT to LLE. ID consulted: Ancef 2g IV q8h to complete 4 week course from 05/08 thru 06/04. Midline placed on 05/10 #Hypoxia- resolved unclear etiology. Does have history of underlying restrictive lung disease; suspect related to bacteremia will stopped prednisone to encourage wound healing. CXR and chest CTA unremarkable. Respiratory BioFire negative. Procalcitonin, lactate, BNP WNL. #Weakness | Dehydration Dehydration resolved after 2 L NSS. Has good appetite/oral intake. Encourage oral hydration PT/OT consulted, WBAT on LLE - recommending rehab; [facility] auth pending. #Elevated troponin | Sinus Tachycardia Troponin peaked at 193 then downtrended. EKG without ischemic changes. No chest pain Echocardiogram notes EF 50-55%, grade 2 diastolic dysfunction, mildly dilated left atrium, moderate mitral annular calcification, RVSP elevated at 30-40 mm mg, inferior vena cava mildly dilated TSH WNL #T2DM A1c 7.7. Home regimen includes metformin 500 mg BID - resume given pt is stable. Given no further IV steroids, SSI discontinued now that patient is back on home regimen. #Lower extremity edema Patient takes Lasix 20 mg BID. Appears as though his lower extremity swelling is chronic venous stasis so I question what benefit his Lasix provides, but will continue for now VTE PPx: Lovenox Dispo: Awaiting auth for [facility] Admission and Anticipated Discharge Date Admission Date: May 06, 2025 Supervising Physician Co-Signing Physician Notes The patient was not seen by me. The chart was reviewed. Case discussed with LEANDRO Rudd. Agree with assessment and plan Subjective Estuardo was seen & examined this morning. He states he has no complaints aside from feeling bored today. Physical Exam Physical Exam: General: NAD, VS: BP 118/73; P60; R16; T36.9C Resp: normal respiratory effort Extremities:no edema Neuro: A&O x3 Skin: intact Results & Data Results & Data Vital Signs (Past 12 Hours) Vital Signs Temp Pulse Resp BP Pulse Ox O2 Del Method 05/13/25 07:59 36.9 C 60 16 118/73 94 Room Air PG Care Time/CCT Total # of Minutes Spent Total Time Spent with Patient: Total time spent is greater than 50% in coordination of care (as documented) at patient's floor/unit and/or counseling patient: Coding Level of Care Code 93462 SUB INP/OBS CARE 2/35MIN Diagnoses Diabetic Charcot foot E11.610 Gram-positive bacteremia R78.81 Weakness R53.1"
[2025-05-14 06:33] LABS: Hematocrit (blood only) 45.0 % (42.0-52.0); Hemoglobin 14.2 g/dl (14.0-18.0); Mean Corpuscular Hemoglobin 24.9 pg (25.0-34.0); Mean Corpuscular Volume 78.9 fL (80.0-100.0); Platelet Count 282 K/uL (130-400); RDW Standard Deviation 47.8 fL (36.4-46.3); Red Blood Count 5.70 M/uL (4.70-6.10); White Blood Count 6.38 K/ul (4.8-10.8)
[2025-05-14 06:49] LABS: Alanine Aminotransferase 13.0 U/L (7-52); Albumin Globulin Ratio 1.0 (0.9-2); Albumin Level 4.0 gm/dl (3.4-5.0); Alkaline Phosphatase 93.0 U/L (34-104); Anion Gap 8.0 (3-11); Bilirubin,Total 0.5 mg/dl (0.2-1.0); Blood Urea Nitrogen 24.0 mg/dl (6-23); Calcium 9.7 mg/dl (8.6-10.3); Carbon Dioxide 30.0 mmol/L (21-32); Chloride 98.0 mmol/L (98-107); Creatinine Clr Calc Pharmacy 120.4 ml/min; Globulin 4.0 gm/dl (2.5-4.0); Glucose 112.0 mg/dl (70-99(Fasting)); Potassium 4.2 mmol/L (3.5-5.1); Sodium 136.0 mmol/L (136-145); Total Protein 8.0 gm/dl (6.0-8.3)
--- NOTE | 2025-05-14 11:49 | Hospitalist Progress Note ---
"Date of Service May 14, 2025 Assessment & Plan (1) Diabetic Charcot foot: (2) Gram-positive bacteremia: (3) Weakness: Plan Estuardo is a pleasant 59-year-old man with past medical history of, T2DM, restrictive lung disease, bipolar disorder, ADD, HTN, mild cognitive impairment. He presented to the ED via EMS with weakness and hypoxia on 05/06. #Charcot foot | Diabetic foot wound | Gram positive bacteremia Left Foot XR: no finding to suggest OM Left foot MRI: no acute findings in left foot. post-op changes left partial 5th toe amputation w/ subcutaneous soft tissue swelling overlying 4th metatarsal head. No MRI evidence of OM. Duplex LE scan: no arterial occlusion identified. nonvisualization of peroneal artery. elevated peak systolic velocities within posterior tibial artery compatible w/ luminal stenosis. Left foot wound culture 05/06: + for MSSA; BC + in 2/4 bottles on 05/06 for MSSA; follow up repeat BC from are negative to date. Echo: no vegetations visualized Podiatry was consulted: redress w/ Optifoam gauze & Aquacel by nursing. abx as recommended by ID, follow up outpatient. Cam boot given, WBAT to LLE. ID consulted: Ancef 2g IV q8h to complete 4 week course from 05/08 thru 06/04; Midline placed on 05/10 #Hypoxia- resolved unclear etiology. Does have history of underlying restrictive lung disease; suspect related to bacteremia will stopped prednisone to encourage wound healing. CXR and chest CTA unremarkable. Respiratory BioFire negative. Procalcitonin, lactate, BNP WNL. #Weakness | Dehydration - resolved Dehydration resolved after 2 L NSS. Has good appetite/oral intake. Encourage oral hydration PT/OT consulted, WBAT on LLE - recommending rehab; [facility] auth pending. #Elevated troponin | Sinus Tachycardia- resolved Troponin peaked at 193 then downtrended. EKG without ischemic changes. No chest pain Echocardiogram notes EF 50-55%, grade 2 diastolic dysfunction, mildly dilated left atrium, moderate mitral annular calcification, RVSP elevated at 30-40 mm mg, inferior vena cava mildly dilated TSH WNL #T2DM A1c 7.7. Home regimen includes metformin 500 mg BID - resume given pt is stable. Given no further IV steroids, SSI discontinued now that patient is back on home regimen. #Lower extremity edema Patient takes Lasix 20 mg BID. Appears as though his lower extremity swelling is chronic venous stasis so I question what benefit his Lasix provides, but will continue for now VTE PPx: Lovenox Dispo: Awaiting auth for [facility] Admission and Anticipated Discharge Date Admission Date: May 06, 2025 Supervising Physician Co-Signing Physician Notes The patient was not seen by me. The chart was reviewed. Case discussed with LEANDRO Rudd. Agree with assessment and plan Subjective Estuardo was seen & examined this afternoon. He denies any complaints today and reports he is feeling well. He is hopeful to get approved to go to [facility] & is nervous what the next steps are if he does not get approved. Reassurance provided to patient. Physical Exam Physical Exam: General: NAD, VS: BP 126/66; P66; T36.5; R19 Resp: normal respiratory effort Extremities: Moves all extremities, no edema Neuro: A&O x3 Skin: intact, left cam boot in place Results & Data Results & Data Vital Signs (Past 12 Hours) Vital Signs Temp Pulse Resp BP Pulse Ox O2 Del Method 05/14/25 07:28 36.5 C 66 19 126/66 95 Room Air PG Care Time/CCT Total # of Minutes Spent Total Time Spent with Patient: Total time spent is greater than 50% in coordination of care (as documented) at patient's floor/unit and/or counseling patient: Coding Level of Care Code 01692 SUB INP/OBS CARE 08/06MIN Diagnoses Diabetic Charcot foot E11.610 Gram-positive bacteremia R78.81 Weakness R53.1"
[2025-05-15 07:09] LABS: Hematocrit (blood only) 41.8 % (42.0-52.0); Hemoglobin 13.7 g/dl (14.0-18.0); Mean Corpuscular Hemoglobin 25.8 pg (25.0-34.0); Mean Corpuscular Volume 78.6 fL (80.0-100.0); Platelet Count 236 K/uL (130-400); RDW Standard Deviation 47.8 fL (36.4-46.3); Red Blood Count 5.32 M/uL (4.70-6.10); White Blood Count 6.35 K/ul (4.8-10.8)
[2025-05-15 07:37] LABS: Alanine Aminotransferase 10.0 U/L (7-52); Albumin Globulin Ratio 1.1 (0.9-2); Albumin Level 3.8 gm/dl (3.4-5.0); Alkaline Phosphatase 86.0 U/L (34-104); Anion Gap 7.0 (3-11); Bilirubin,Total 0.4 mg/dl (0.2-1.0); Blood Urea Nitrogen 23.0 mg/dl (6-23); Calcium 9.3 mg/dl (8.6-10.3); Carbon Dioxide 32.0 mmol/L (21-32); Chloride 98.0 mmol/L (98-107); Creatinine Clr Calc Pharmacy 116.3 ml/min; Globulin 3.5 gm/dl (2.5-4.0); Glucose 114.0 mg/dl (70-99(Fasting)); Potassium 3.9 mmol/L (3.5-5.1); Sodium 137.0 mmol/L (136-145); Total Protein 7.3 gm/dl (6.0-8.3)
--- NOTE | 2025-05-15 12:48 | Hospitalist Progress Note ---
"Date of Service May 15, 2025 Assessment & Plan (1) Diabetic foot ulcer: (2) Gram-positive bacteremia: (3) Weakness: Plan Estuardo is a pleasant 59-year-old man with past medical history of hypertension, T2DM, restrictive lung disease, bipolar disorder, ADD, mild cognitive impairme nt. He presented to the ED via EMS with weakness and hypoxia. Workup in ED revealed hypoxia requiring supplemental O2, sinus tachycardia, elevated troponin. CXR and chest CTA without evidence of focal consolidation or PE. #Diabetic foot wound | Gram positive bacteremia | Staph aureus sepsis POA - Left foot XR without evidence of osteomyelitis, no significant soft tissue gas. Leukocytosis has resolved. CRP downtrending. Echo without vegetations. Aterial duplex without obstructions. Wound / blood culture + Staph. Repeat blood cultures negative - finalized. Continue cefazolin podiatry consulted - rec foot MRI that did not show osteo, bedside debridement x2, plan for IV antibiotics and outpatient WC, if worsening may need OR in the future. continue full weightbearing with boot ID consulted - plan for cefazolin for 4 week course (EOT 06/04), Follow up with ID ([facility]) in 3-4 weeks, weekly labs Midline inserted 05/10 #Hypoxia unclear etiology. CXR and chest CTA unremarkable. Respiratory BioFire negative. Procalcitonin, lactate, BNP WNL. Does have history of underlying restrictive lung disease. This has resolved. #Weakness | Dehydration - Dehydration resolved after 2 L NSS. Has good appetite/oral intake. Encourage oral hydration - PT/OT consulted- recommending rehab, awaiting insurance auth #Elevated troponin | Sinus Tachycardia - Troponin peaked at 193 then downtrended. EKG without ischemic changes. No chest pain - Echocardiogram notes EF 50-55%, grade 2 diastolic dysfunction, mildly dilated left atrium, moderate mitral annular calcification, RVSP elevated at 30-40 mm mg, inferior vena cava mildly dilated - TSH WNL #[id number] 7.7. Metformin has been resumed. #Lower extremity edema Patient takes Lasix 20 mg BID. Appears as though his lower extremity swelling is chronic venous stasis so I question what benefit his Lasix provides, but will continue for now VTE PPx: Lovenox Dispo: awaiting safe discharge dispo - will need IV abx, close podiatry/wound care follow up Admission and Anticipated Discharge Date Admission Date: May 06, 2025 Subjective patient seen sitting up in the chair - just talked with CM - no insurance auth yet. denies pain reports getting around okay with the boot Review of Systems Review of Systems: All systems reviewed & are unremarkable except as noted in Subjective Physical Exam Physical Exam: General: NAD, vitals as above, sitting up in the chair Pulm: breathing unlabored CV: well perfused extremities: moves all extremities, boot in place Results & Data Results & Data Vital Signs (Past 12 Hours) Vital Signs Temp Pulse Resp BP Pulse Ox O2 Del Method 05/15/25 07:02 98.1 F 61 16 151/64 H 94 Room Air Laboratory Results cbc and chemistry reviewed PG Care Time/CCT Total # of Minutes Spent Total Time Spent with Patient: Total time spent is greater than 50% in coordination of care (as documented) at patient's floor/unit and/or counseling patient: Coding Level of Care Code 78096 SUB INP/OBS CARE 08/06MIN Diagnoses Diabetic foot ulcer E11.621; L97.509 Gram-positive bacteremia R78.81 Weakness R53.1"
--- NOTE | 2025-05-16 13:14 | Hospitalist Progress Note ---
"Date of Service May 16, 2025 Assessment & Plan (1) Diabetic foot ulcer: (2) Gram-positive bacteremia: (3) Weakness: Plan Estuardo is a pleasant 59-year-old man with past medical history of hypertension, T2DM, restrictive lung disease, bipolar disorder, ADD, mild cognitive impairme nt. He presented to the ED via EMS with weakness and hypoxia. Workup in ED revealed hypoxia requiring supplemental O2, sinus tachycardia, elevated troponin. CXR and chest CTA without evidence of focal consolidation or PE. #Diabetic foot wound | Gram positive bacteremia | Staph aureus sepsis POA - Left foot XR without evidence of osteomyelitis, no significant soft tissue gas. Leukocytosis has resolved. CRP downtrending. Echo without vegetations. Aterial duplex without obstructions. Wound / blood culture + Staph. Repeat blood cultures negative - finalized. Continue cefazolin podiatry consulted - rec foot MRI that did not show osteo, bedside debridement x2, plan for IV antibiotics and outpatient WC, if worsening may need OR in the future. continue full weightbearing with boot ID consulted - plan for cefazolin for 4 week course (EOT 06/04), Follow up with ID ([facility]) in 3-4 weeks, weekly labs Midline inserted 05/10 #Hypoxia unclear etiology. CXR and chest CTA unremarkable. Respiratory BioFire negative. Procalcitonin, lactate, BNP WNL. Does have history of underlying restrictive lung disease. This has resolved. #Weakness | Dehydration - Dehydration resolved after 2 L NSS. Has good appetite/oral intake. Encourage oral hydration - PT/OT consulted- recommending rehab, awaiting insurance auth #Elevated troponin | Sinus Tachycardia - Troponin peaked at 193 then downtrended. EKG without ischemic changes. No chest pain - Echocardiogram notes EF 50-55%, grade 2 diastolic dysfunction, mildly dilated left atrium, moderate mitral annular calcification, RVSP elevated at 30-40 mm mg, inferior vena cava mildly dilated - TSH WNL #[id number] 7.7. Metformin has been resumed. Continue ACHS BSG checks - if elevated will add CF insulin for help with wound healing #Lower extremity edema Patient takes Lasix 20 mg BID. Appears as though his lower extremity swelling is chronic venous stasis so I question what benefit his Lasix provides, but will continue for now VTE PPx: Lovenox Dispo: awaiting safe discharge dispo - will need IV abx, close podiatry/wound care follow up Admission and Anticipated Discharge Date Admission Date: May 06, 2025 Subjective patient seen sitting up in the chair - no insurance auth yet. denies pain, asking for company Review of Systems Review of Systems: All systems reviewed & are unremarkable except as noted in Subjective Physical Exam Physical Exam: General: NAD, vitals as above, sitting up in the chair Pulm: breathing unlabored CV: well perfused, RRr extremities: moves all extremities, boot in place Results & Data Results & Data Vital Signs (Past 12 Hours) Vital Signs Temp Pulse Resp BP Pulse Ox O2 Del Method 05/16/25 11:31 97.2 F L 64 18 125/71 94 Room Air 05/16/25 07:30 97.3 F L 58 L 19 146/82 H 94 Room Air 05/16/25 07:03 98.1 F 58 L 18 124/75 95 Room Air Laboratory Results BSG reviewed PG Care Time/CCT Total # of Minutes Spent Total Time Spent with Patient: Total time spent is greater than 50% in coordination of care (as documented) at patient's floor/unit and/or counseling patient: Coding Level of Care Code 15176 SUB INP/OBS CARE 08/06MIN Diagnoses Diabetic foot ulcer E11.621; L97.509 Gram-positive bacteremia R78.81 Weakness R53.1"
--- NOTE | 2025-05-17 18:46 | Hospitalist Progress Note ---
"Date of Service May 17, 2025 Assessment & Plan (1) Diabetic foot ulcer: (2) Gram-positive bacteremia: (3) Weakness: Plan Estuardo is a pleasant 59-year-old man with past medical history of hypertension, T2DM, restrictive lung disease, bipolar disorder, ADD, mild cognitive impairme nt. He presented to the ED via EMS with weakness and hypoxia. Workup in ED revealed hypoxia requiring supplemental O2, sinus tachycardia, elevated troponin. CXR and chest CTA without evidence of focal consolidation or PE. #Diabetic foot wound | Gram positive bacteremia | Staph aureus sepsis POA - Left foot XR without evidence of osteomyelitis, no significant soft tissue gas. Leukocytosis has resolved. CRP downtrending. Echo without vegetations. Aterial duplex without obstructions. Wound / blood culture + Staph. Repeat blood cultures negative - finalized. Continue cefazolin podiatry consulted - rec foot MRI that did not show osteo, bedside debridement x2, plan for IV antibiotics and outpatient WC, if worsening may need OR in the future. continue full weightbearing with boot ID consulted - plan for cefazolin for 4 week course (EOT 06/04), Follow up with ID ([facility]) in 3-4 weeks, weekly labs Midline inserted 05/10 #Hypoxia unclear etiology. CXR and chest CTA unremarkable. Respiratory BioFire negative. Procalcitonin, lactate, BNP WNL. Does have history of underlying restrictive lung disease. This has resolved. #Weakness | Dehydration - Dehydration resolved after 2 L NSS. Has good appetite/oral intake. Encourage oral hydration - PT/OT consulted- recommending rehab, P2P for [facility] denied 05/17 #Elevated troponin | Sinus Tachycardia - Troponin peaked at 193 then downtrended. EKG without ischemic changes. No chest pain - Echocardiogram notes EF 50-55%, grade 2 diastolic dysfunction, mildly dilated left atrium, moderate mitral annular calcification, RVSP elevated at 30-40 mm mg, inferior vena cava mildly dilated - TSH WNL #[id number] 7.7. Metformin has been resumed. Continue ACHS BSG checks - if elevated will add CF insulin for help with wound healing #Lower extremity edema Patient takes Lasix 20 mg BID. Appears as though his lower extremity swelling is chronic venous stasis so I question what benefit his Lasix provides, but will continue for now VTE PPx: Lovenox Dispo: awaiting safe discharge dispo - will need IV abx, close podiatry/wound care follow up Admission and Anticipated Discharge Date Admission Date: May 06, 2025 Supervising Physician Co-Signing Physician Notes LEANDRO Supervision Note: I did not personally see or examine the patient today, but I verified all evans points of LEANDRO Arboleda's assessment and plan with the following exceptions/additions: None Subjective Patient seen this afternoon - worried about how he is going to get his antibiotics frustrated with still having to sit in the hospital Physical Exam Physical Exam: General: NAD, vitals as above, sitting up in bed Pulm: breathing unlabored CV: well perfused, extremities: moves all extremities, no ertyhema to LE or swelling Results & Data Results & Data Vital Signs (Past 12 Hours) Vital Signs Temp Pulse Resp BP Pulse Ox O2 Del Method 05/17/25 16:32 97.9 F 66 16 119/71 93 Room Air 05/17/25 07:26 97.9 F 60 17 137/79 92 Room Air Laboratory Results POC glucose reviewed PG Care Time/CCT Total # of Minutes Spent Total Time Spent with Patient: Total time spent is greater than 50% in coordination of care (as documented) at patient's floor/unit and/or counseling patient: Coding Level of Care Code 26803 SUB INP/OBS CARE 08/06MIN Diagnoses Diabetic foot ulcer E11.621; L97.509 Gram-positive bacteremia R78.81 Weakness R53.1"
--- NOTE | 2025-05-17 21:25 | Podiatry Progress Note ---
Date of Service May 17, 2025 Assessment & Plan (1) MSSA bacteremia: (2) Gram-positive bacteremia: (3) Diabetic Charcot foot: (4) Type 2 diabetes mellitus: Plan Patient examined and evaluated. - IV port has been placed at this point. - Foot Will be redressed with OptiFoam gauze and Aquacel by nursing. - With no evidence of osteomyelitis currently on imaging and clinical exam, he could benefit from outpatient care with his continued improvement. - Would recommend antibiotic guidance based on infectious disease suggestion/notes. - He may require further surgical intervention in the future if this fails to heal and would benefit from care from the [facility] wound care clinic. - We will be happy to follow outpatient once he is discharged for wound care and potential surgical intervention as needed. - The foot aspect of his acute care can be taken care of purely outpatient, if all placement fails. - With likely discharge in the next 1 or 2 days, we will plan on signing off for now. Please reconsult as necessary if his condition deteriorates or he changes his mind regarding surgical intervention. Admission and Anticipated Discharge Date Admission Date: May 06, 2025 Subjective Patient seen this afternoon. No new medical concerns. Is frustrated about placement options, specifically regarding antibiotics and some longer standing weakness. Otherwise, believes the foot is doing well. Review of Systems Constitutional: no fever, no chills, no fatigue and no weakness Eyes: no problem reported Ear, Nose, Mouth, Throat: no problem reported Respiratory: no problem reported Cardiovascular: + edema; no problem reported Gastrointestinal: no nausea, no vomiting and no problem reported Musculoskeletal: + deformity; no problem reported Integumentary: + skin ulcer, + wounds and + erythema Neurologic: + loss of sensation, + numbness and + pa resthesia; no generalized weakness Psychiatric: no problem reported Physical Exam Physical Exam: Left lower extremity exam: DP/PT pulses palpable. Fifth ray resection noted; surgical site well healed. Syndactyly noted to the second and third toes. Erythema and edema noted globally to the left foot, Improved since yesterday. CFT is brisk to the digits. Large full thickness ulceration noted sub 5th metatarsal. this wound was debrided sharply with a 15 blade and Tissue nipper. The wound bed is roughly 80% granular and 20% fibrotic with no mihai purulence and no proximal tracking. Most of the wound bed consists of this granular base, though there is a central portion of those probe deeper. The end step is for but may potentially not be bone here. This would be more consistent with the MRI findings of no significantEvidence of osteomyelitis. Specifically, his ulceration is underlying the resected fifth metatarsal and not the fourth metatarsal where the bone marrow edema is noted. Constitutional: WD/WN, vitals as above + ill appearing and + morbidly obese Eyes: PERRL, conjunctivae normal, anicteric sclerae ENMT: external ear and nose normal, oropharynx normal Mouth: + poor dentition Neck: trachea midline, no thyromegaly normal visual inspection Respiratory: normal respiratory effort; no respiratory distress Cardiovascular: Rate/Rhythm: regular rate and regular rhythm Vessels: posterior tibial pulses present and dorsalis pedis pulses present Chest (Breasts): Chest: normal inspection of chest Gastrointestinal (Abdomen): Inspection/Auscultation: abdomen normal to inspection Percussion/Palpation: + abdomen tender and abdomen soft Musculoskeletal: no cyanosis or clubbing, extremities motor strength 5/5 Head/Neck/Chest: normocephalic and head atraumatic Extremities: extremities normal to inspection Neurologic: awake; no focal motor deficits Psychiatric: A+Ox3, euthymic affect Results & Data Results & Data Vital Signs (Past 12 Hours) Vital Signs Temp Pulse Resp BP Pulse Ox O2 Del Method 05/17/25 16:32 36.6 C 66 16 119/71 93 Room Air (4) Type 2 diabetes mellitus Diabetes mellitus complication detail: with neuropathic arthropathy Diabetes mellitus complication status: with diabetic arthropathy Diabetes mellitus prison insulin use: with terminal superintendent use Qualified Code(s): E11.610 - Type 2 diabetes mellitus with diabetic neuropathic arthropathy; Z79.4 - half-way (current) use of insulin
--- NOTE | 2025-05-18 16:47 | Hospitalist Progress Note ---
"Date of Service May 18, 2025 Assessment & Plan (1) Diabetic foot ulcer: (2) Gram-positive bacteremia: (3) Weakness: Plan Estuardo is a pleasant 59-year-old man with past medical history of hypertension, T2DM, restrictive lung disease, bipolar disorder, ADD, mild cognitive impairme nt. He presented to the ED via EMS with weakness and hypoxia. Workup in ED revealed hypoxia requiring supplemental O2, sinus tachycardia, elevated troponin. CXR and chest CTA without evidence of focal consolidation or PE. #Diabetic foot wound | Gram positive bacteremia | Staph aureus sepsis POA - Left foot XR without evidence of osteomyelitis, no significant soft tissue gas. Leukocytosis has resolved. CRP downtrending. Echo without vegetations. Aterial duplex without obstructions. Wound / blood culture + Staph. Repeat blood cultures negative - finalized. Midline inserted 05/10 Continue cefazolin podiatry consulted - rec foot MRI that did not show osteo, bedside debridement x2, plan for IV antibiotics and outpatient WC, if worsening may need OR in the future. continue full weightbearing with boot ID consulted - plan for cefazolin for 4 week course (EOT 06/04), Follow up with ID ([facility]) in 3-4 weeks, weekly labs #Hypoxia unclear etiology. CXR and chest CTA unremarkable. Respiratory BioFire negative. Procalcitonin, lactate, BNP WNL. Does have history of underlying restrictive lung disease. This has resolved. #Weakness | Dehydration - Dehydration resolved after 2 L NSS. Has good appetite/oral intake. Encourage oral hydration - PT/OT consulted- recommending rehab, P2P for [facility] denied 05/17 #Elevated troponin | Sinus Tachycardia - Troponin peaked at 193 then downtrended. EKG without ischemic changes. No chest pain. Echocardiogram notes EF 50-55%, grade 2 diastolic dysfunction, mildly dilated left atrium, moderate mitral annular calcification, RVSP elevated at 30-40 mm mg, inferior vena cava mildly dilated. TSH WNL #[id number] 7.7. Metformin has been resumed. Continue ACHS BSG checks - if elevated will add CF insulin for help with wound healing Discussed with childbirth educator - pt frequently missed AM dose of Metformin - recommend metformin ER 750mg x2 QAM - will not change at this time, as lower PO intake inpatient and BSG has been well controlled #Lower extremity edema Patient takes Lasix 20 mg BID. Appears as though his lower extremity swelling is chronic venous stasis so I question what benefit his Lasix provides, but will continue for now VTE PPx: Lovenox Dispo: awaiting safe discharge dispo - will need IV abx, close podiatry/wound care follow up Admission and Anticipated Discharge Date Admission Date: May 06, 2025 Supervising Physician Co-Signing Physician Notes LEANDRO Supervision Note: I did not personally see or examine the patient today, but I verified all evans points of LEANDRO Arboleda's assessment and plan with the following exceptions/additions: None Subjective Patient seen sitting up in the chair. Has no acute concerns updated on denied P2P and working on [facility] care was happy to have visit from therapy dog Review of Systems Review of Systems: All systems reviewed & are unremarkable except as noted in Subjective Physical Exam Physical Exam: General: NAD, vitals as above, sitting up in chair Pulm: breathing unlabored CV: well perfused, extremities: moves all extremities, no erythema to LE or swelling, boot in place Results & Data Results & Data Vital Signs (Past 12 Hours) Vital Signs Temp Pulse Resp BP Pulse Ox O2 Del Method 05/18/25 15:01 98.1 F 64 16 117/70 92 Room Air 05/18/25 11:10 98.2 F 62 16 114/69 91 Room Air 05/18/25 08:13 98.4 F 60 18 130/76 92 Room Air Laboratory Results poc glucose reviewed PG Care Time/CCT Total # of Minutes Spent Total Time Spent with Patient: Total time spent is greater than 50% in coordination of care (as documented) at patient's floor/unit and/or counseling patient: Coding Level of Care Code 88502 SUB INP/OBS CARE 08/06MIN Diagnoses Diabetic foot ulcer E11.621; L97.509 Gram-positive bacteremia R78.81 Weakness R53.1"
--- NOTE | 2025-05-19 11:37 | Hospitalist Progress Note ---
"Date of Service May 19, 2025 Assessment & Plan (1) Diabetic foot ulcer: (2) Gram-positive bacteremia: (3) Weakness: Plan Estuardo is a pleasant 59-year-old man with past medical history of hypertension, T2DM, restrictive lung disease, bipolar disorder, ADD, mild cognitive impairment. He presented to the ED via EMS with weakness and hypoxia. Workup in ED revealed hypoxia requiring supplemental O2, sinus tachycardia, elevated troponin. CXR and chest CTA without evidence of focal consolidation or PE. #Diabetic foot wound | Gram positive bacteremia | Staph aureus sepsis POA - Left foot XR without evidence of osteomyelitis, no significant soft tissue gas. Leukocytosis has resolved. CRP downtrending. Echo without vegetations. Aterial duplex without obstructions. Wound / blood culture + Staph. Repeat blood cultures negative - finalized. Midline inserted 05/10 Continue cefazolin podiatry consulted - rec foot MRI that did not show osteo, bedside debridement x2, plan for IV antibiotics and outpatient WC, if worsening may need OR in the future. continue full weightbearing with boot ID consulted - plan for cefazolin for 4 week course (EOT 06/04), Follow up with ID ([facility]) in 3-4 weeks, weekly labs #Weakness | Dehydration - Dehydration resolved after 2 L NSS. Has good appetite/oral intake. Encourage oral hydration - PT/OT consulted- recommending rehab, P2P for [facility] denied 05/17. Awaiting SNF placement #Hypoxia Now resolved. Unclear etiology. CXR and chest CTA unremarkable. Respiratory BioFire negative. Procalcitonin, lactate, BNP WNL. Does have history of underlying restrictive lung disease #Elevated troponin | Sinus Tachycardia - Troponin peaked at 193 then downtrended. EKG without ischemic changes. No chest pain. Echocardiogram notes EF 50-55%, grade 2 diastolic dysfunction, mildly dilated left atrium, moderate mitral annular calcification, RVSP elevated at 30-40 mm mg, inferior vena cava mildly dilated. TSH WNL #[id number] 7.7. Metformin has been resumed. Continue ACHS BSG checks - if elevated will add CF insulin for help with wound healing Discussed with adult educator - pt frequently missed AM dose of Metformin - recommend metformin ER 750mg x2 QAM - will not change at this time, as lower PO intake inpatient and BSG has been well controlled #Lower extremity edema Patient takes Lasix 20 mg BID. Appears as though his lower extremity swelling is chronic venous stasis so I question what benefit his Lasix provides, but will continue for now VTE PPx: Lovenox Dispo: awaiting safe discharge dispo, SNF placement pending - will need IV abx, close podiatry/wound care follow up Started probiotic daily Admission and Anticipated Discharge Date Admission Date: May 06, 2025 Subjective Patient seen and evaluated at bedside with his RN. He reports feeling well overall. He did have 2 episodes of loose stool this morning. We discussed starting a probiotic with his ongoing antibiotics. He is eating and drinking without difficulty. He reports that he didn't sleep well last night but has been sleeping ok otherwise. He denies any additional complaints or concerns at this time. Physical Exam 2 Physical Exam: General: No acute distress, nondiaphoretic, well-developed, well-nourished. Class III obesity. Skin: Warm, dry. 2+ nonpitting edema in lower extremities bilaterally. Erythema of medial lower extremities bilaterally, consistent with chronic venous stasis changes. Left foot: Charcot foot noted. Wound on lateral plantar surface without purulence. Dry flaky skin noted on plantar surface. Surgically amputated left pinky toe. Webbed 2nd and 3rd toes. Cardiac: Regular rate and rhythm without murmurs gallops or rubs. Pulm: Clear to auscultation bilaterally without wheezes, rales or rhonchi. Normal respiratory effort. 94% on room air. Abdominal: Soft, distended secondary to body habitus, nontender. Bowel sounds present. Neuro: A&O x3. No focal neurological deficits. Results & Data Results & Data Vital Signs (Past 12 Hours) Vital Signs Temp Pulse Resp BP Pulse Ox O2 Del Method 05/19/25 07:17 98.4 F 70 16 147/73 H 94 Room Air 05/18/25 23:42 97.9 F 72 18 150/71 H 93 Room Air PG Care Time/CCT Total # of Minutes Spent Total Time Spent with Patient: Total time spent is greater than 50% in coordination of care (as documented) at patient's floor/unit and/or counseling patient: Coding Level of Care Code 01528 SUB INP/OBS CARE 2/35MIN Diagnoses Diabetic foot ulcer E11.621; L97.509 Gram-positive bacteremia R78.81 Weakness R53.1"
[2025-05-19] MEDS: ADVANCED PROBIOTIC 625 MG CAPSULE PO SCH (12:13)
--- NOTE | 2025-05-20 11:26 | Podiatry Progress Note ---
Date of Service May 20, 2025 Assessment & Plan (1) MSSA bacteremia: (2) Gram-positive bacteremia: (3) Diabetic Charcot foot: (4) Type 2 diabetes mellitus: Plan Patient examined and evaluated. - With his continued hospitalization, I wanted to reassess the ulceration prior to discharge. - I anticipated he'd have been discharged already, so didn't want the ulcer to be without assessment. - The wound was sharply debrided and healthy bleeding was noted to the wound bed. The depth has improved significantly. - This was redressed with Aquacel Ag and optifoam gauze. - He should continue with daily dressings in this manner. - We will be happy to see him while he is at [facility]; we often have patients brought to our office from the facility. - We will again sign off, but see him sporadically if he remains on our census for a prolonged period. Admission and Anticipated Discharge Date Admission Date: May 06, 2025 Subjective Patient seen and evaluated sitting in his chair. Denies any new concerns and believes he is planning to d/c to [facility] at this point, though unsure of the timing. In good spirits today; not as frustrated with being in the hospital. Review of Systems Constitutional: no fever, no chills, no fatigue and no weakness Eyes: no problem reported Ear, Nose, Mouth, Throat: no problem reported Respiratory: no problem reported Cardiovascular: + edema; no problem reported Gastrointestinal: no nausea, no vomiting and no problem reported Musculoskeletal: + deformity; no problem reported Integumentary: + skin ulcer, + wounds and + erythema Neurologic: + loss of sensation, + numbness and + pa resthesia; no generalized weakness Psychiatric: no problem reported Physical Exam Physical Exam: Left lower extremity exam: DP/PT pulses palpable. Fifth ray resection noted; surgical site well healed. Syndactyly noted to the second and third toes. Erythema and edema noted globally to the left foot, CFT is brisk to the digits. Full thickness ulceration noted sub 5th metatarsal. This wound was debrided sharply with a 15 blade and Tissue nipper. The wound bed is 100% granular with no mihai purulence and no proximal tracking. Currently, there is no deeper probing noted and wound measures 1.2cm in diameter and 0.3cm in depth. Periwound hyperkeratotic skin noted. Constitutional: WD/WN, vitals as above + ill appearing and + morbidly obese Eyes: PERRL, conjunctivae normal, anicteric sclerae ENMT: external ear and nose normal, oropharynx normal Mouth: + poor dentition Neck: trachea midline, no thyromegaly normal visual inspection Respiratory: normal respiratory effort; no respiratory distress Cardiovascular: Rate/Rhythm: regular rate and regular rhythm Vessels: posterior tibial pulses present and dorsalis pedis pulses present Chest (Breasts): Chest: normal inspection of chest Gastrointestinal (Abdomen): Inspection/Auscultation: abdomen normal to inspection Percussion/Palpation: + abdomen tender and abdomen soft Musculoskeletal: no cyanosis or clubbing, extremities motor strength 5/5 Head/Neck/Chest: normocephalic and head atraumatic Extremities: extremities normal to inspection Neurologic: awake; no focal motor deficits Psychiatric: A+Ox3, euthymic affect Results & Data Results & Data Vital Signs (Past 12 Hours) Vital Signs Temp Pulse Resp BP Pulse Ox O2 Del Method 05/20/25 07:08 36.4 C L 62 16 122/77 92 Room Air (4) Type 2 diabetes mellitus Diabetes mellitus complication detail: with neuropathic arthropathy Diabetes mellitus complication status: with diabetic arthropathy Diabetes mellitus usp insulin use: with buttermaker helper use Qualified Code(s): E11.610 - Type 2 diabetes mellitus with diabetic neuropathic arthropathy; Z79.4 - manager terminal (current) use of insulin
--- NOTE | 2025-05-20 15:59 | Hospitalist Progress Note ---
Date of Service May 20, 2025 Assessment & Plan (1) Diabetic foot ulcer: (2) Gram-positive bacteremia: (3) Weakness: Plan Estuardo is a pleasant 59-year-old man with past medical history of hypertension, T2DM, restrictive lung disease, bipolar disorder, ADD, mild cognitive impairme nt. He presented to the ED via EMS with weakness and hypoxia. Workup in ED revealed hypoxia requiring supplemental O2, sinus tachycardia, elevated troponin. CXR and chest CTA without evidence of focal consolidation or PE. #Diabetic foot wound | Gram positive bacteremia | Staph aureus sepsis POA - Left foot XR without evidence of osteomyelitis, no significant soft tissue gas. Leukocytosis has resolved. CRP downtrending. Echo without vegetations. Aterial duplex without obstructions. Wound / blood culture + Staph. Repeat blood cultures negative - finalized. Midline inserted 05/10 Continue cefazolin podiatry consulted - rec foot MRI that did not show osteo, bedside debridement x2, plan for IV antibiotics and outpatient WC, if worsening may need OR in the future. continue full weightbearing with boot ID consulted - plan for cefazolin for 4 week course (EOT 06/04), Follow up with ID ([facility]) in 3-4 weeks, weekly labs #Weakness | Dehydration - Dehydration resolved after 2 L NSS. Has good appetite/oral intake. Encourage oral hydration - PT/OT consulted- recommending rehab, P2P for [facility] denied 05/17. Awaiting SNF placement #Hypoxia Now resolved. Unclear etiology. CXR and chest CTA unremarkable. Respiratory BioFire negative. Procalcitonin, lactate, BNP WNL. Does have history of underlying restrictive lung disease #Elevated troponin | Sinus Tachycardia - Troponin peaked at 193 then downtrended. EKG without ischemic changes. No chest pain. Echocardiogram notes EF 50-55%, grade 2 diastolic dysfunction, mildly dilated left atrium, moderate mitral annular calcification, RVSP elevated at 30-40 mm mg, inferior vena cava mildly dilated. TSH WNL #[id number] 7.7. Metformin has been resumed. Continue ACHS BSG checks - if elevated will add CF insulin for help with wound healing Discussed with runner worker - pt frequently missed AM dose of Metformin - recommend metformin ER 750mg x2 QAM - will not change at this time, as lower PO intake inpatient and BSG has been well controlled #Lower extremity edema Patient takes Lasix 20 mg BID. Appears as though his lower extremity swelling is chronic venous stasis so I question what benefit his Lasix provides, but will continue for now VTE PPx: Lovenox Dispo: awaiting safe discharge dispo, SNF placement pending - will need IV abx, close podiatry/wound care follow up Admission and Anticipated Discharge Date Admission Date: May 06, 2025 Subjective Patient seen and evaluated at bedside. He reports "I feel bad today. Not because of my health but because of [employer] football." He denies any medical complaints or concerns at this time. His loose stools have now resolved. Cont inuing to wait for SNF placement. Physical Exam Physical Exam: General: No acute distress, nondiaphoretic, well-developed, well-nourished. Class III obesity. Skin: Warm, dry. 2+ nonpitting edema in lower extremities bilaterally. Erythema of medial lower extremities bilaterally, consistent with chronic venous stasis changes. Left foot: Charcot foot noted. Wound on lateral plantar surface covered in dressing - clean dry intact. Dry flaky skin noted on plantar surface. Surgically amputated left pinky toe. Webbed 2nd and 3rd toes. Cardiac: Regular rate and rhythm without murmurs gallops or rubs. Pulm: Clear to auscultation bilaterally without wheezes, rales or rhonchi. Normal respiratory effort. 94% on room air. Abdominal: Soft, distended secondary to body habitus, nontender. Bowel sounds present. Neuro: A&O x3. No focal neurological deficits. Results & Data Results & Data Vital Signs (Past 12 Hours) Vital Signs Temp Pulse Resp BP Pulse Ox O2 Del Method 05/20/25 15:25 97.7 F 68 16 119/66 95 Room Air 05/20/25 07:08 97.5 F L 62 16 122/77 92 Room Air PG Care Time/CCT Total # of Minutes Spent Total Time Spent with Patient: Total time spent is greater than 50% in coordination of care (as documented) at patient's floor/unit and/or counseling patient: Coding Level of Care Code 20326 SUB INP/OBS CARE 08/06MIN Diagnoses Diabetic foot ulcer E11.621; L97.509 Gram-positive bacteremia R78.81 Weakness R53.1
--- NOTE | 2025-05-21 14:06 | Hospitalist Progress Note ---
"Date of Service May 21, 2025 Assessment & Plan (1) Diabetic foot ulcer: (2) Gram-positive bacteremia: (3) Weakness: Plan Estuardo is a pleasant 59-year-old man with past medical history of hypertension, T2DM, restrictive lung disease, bipolar disorder, ADD, mild cognitive impairme nt. He presented to the ED via EMS with weakness and hypoxia. Workup in ED revealed hypoxia requiring supplemental O2, sinus tachycardia, elevated troponin. CXR and chest CTA without evidence of focal consolidation or PE. #Diabetic foot wound | Gram positive bacteremia | Staph aureus sepsis POA - Left foot XR without evidence of osteomyelitis, no significant soft tissue gas. Leukocytosis has resolved. CRP downtrending. Echo without vegetations. Aterial duplex without obstructions. Wound / blood culture + Staph. Repeat blood cultures negative - finalized. Midline inserted 05/10 Continue cefazolin podiatry consulted - rec foot MRI that did not show osteo, bedside debridement x2, plan for IV antibiotics and outpatient WC, if worsening may need OR in the future. continue full weightbearing with boot ID consulted - plan for cefazolin for 4 week course (EOT 06/04), Follow up with ID ([facility]) in 3-4 weeks, weekly labs - added CBC and BMP to AM labs 05/22 #Weakness | Dehydration - Dehydration resolved after 2 L NSS. Has good appetite/oral intake. Encourage oral hydration - PT/OT consulted- recommending rehab, P2P for [facility] denied 05/17. Awaiting SNF placement #Hypoxia Now resolved. Unclear etiology. CXR and chest CTA unremarkable. Respiratory BioFire negative. Procalcitonin, lactate, BNP WNL. Does have history of underlying restrictive lung disease #Elevated troponin | Sinus Tachycardia - Troponin peaked at 193 then downtren ded. EKG without ischemic changes. No chest pain. Echocardiogram notes EF 50- 55%, grade 2 diastolic dysfunction, mildly dilated left atrium, moderate mitral annular calcification, RVSP elevated at 30-40 mm mg, inferior vena cava mildly dilated. TSH WNL #[id number] 7.7. Metformin has been resumed. Continue ACHS BSG checks - if elevated will add CF insulin for help with wound healing Discussed with prosthodontist/educator - pt frequently missed AM dose of Metformin - recommend metformin ER 750mg x2 QAM - will not change at this time, as lower PO intake inpatient and BSG has been well controlled #Lower extremity edema Patient takes Lasix 20 mg BID. Appears as though his lower extremity swelling is chronic venous stasis so I question what benefit his Lasix provides, but will continue for now VTE PPx: Lovenox Dispo: awaiting safe discharge dispo, SNF placement pending - will need IV abx, close podiatry/wound care follow up Admission and Anticipated Discharge Date Admission Date: May 06, 2025 Subjective Patient seen and evaluated at bedside. He reports feeling well overall and that he was about to take a nap. He denies any acute complaints or concerns at this time. Continuing to wait for placement. Physical Exam Physical Exam: General: No acute distress, nondiaphoretic, well-developed, well-nourished. Class III obesity. Skin: Warm, dry. 2+ nonpitting edema in lower extremities bilaterally. Erythema of medial lower extremities bilaterally, consistent with chronic venous stasis changes. Left foot: Charcot foot noted. Wound on lateral plantar surface covered in dressing - clean dry intact. Dry flaky skin noted on plantar surface. Surgically amputated left pinky toe. Webbed 2nd and 3rd toes. Cardiac: Regular rate and rhythm without murmurs gallops or rubs. Pulm: Clear to auscultation bilaterally without wheezes, rales or rhonchi. Normal respiratory effort. 94% on room air. Abdominal: Soft, distended secondary to body habitus, nontender. Bowel sounds present. Neuro: A&O x3. No focal neurological deficits. Results & Data Results & Data Vital Signs (Past 12 Hours) Vital Signs Temp Pulse Resp BP Pulse Ox O2 Del Method 05/21/25 07:31 97.5 F L 58 L 18 125/75 94 Room Air PG Care Time/CCT Total # of Minutes Spent Total Time Spent with Patient: Total time spent is greater than 50% in coordination of care (as documented) at patient's floor/unit and/or counseling patient: Coding Level of Care Code 97097 SUB INP/OBS CARE 2/35MIN Diagnoses Diabetic foot ulcer E11.621; L97.509 Gram-positive bacteremia R78.81 Weakness R53.1"
[2025-05-22 06:41] LABS: Hematocrit (blood only) 42.9 % (42.0-52.0); Hemoglobin 13.8 g/dl (14.0-18.0); Mean Corpuscular Hemoglobin 25.7 pg (25.0-34.0); Mean Corpuscular Volume 79.9 fL (80.0-100.0); Platelet Count 217 K/uL (130-400); RDW Standard Deviation 48.2 fL (36.4-46.3); Red Blood Count 5.37 M/uL (4.70-6.10); White Blood Count 5.60 K/ul (4.8-10.8)
[2025-05-22 06:59] LABS: Anion Gap 7.0 (3-11); Blood Urea Nitrogen 24.0 mg/dl (6-23); Calcium 9.4 mg/dl (8.6-10.3); Carbon Dioxide 30.0 mmol/L (21-32); Chloride 100.0 mmol/L (98-107); Creatinine Clr Calc Pharmacy 111.3 ml/min; Glucose 112.0 mg/dl (70-99(Fasting)); Potassium 4.0 mmol/L (3.5-5.1); Sodium 137.0 mmol/L (136-145)
--- NOTE | 2025-05-22 12:13 | Hospitalist Progress Note ---
"Date of Service May 22, 2025 Assessment & Plan (1) Diabetic foot ulcer: (2) Gram-positive bacteremia: (3) Weakness: Plan Estuardo is a pleasant 59-year-old man with past medical history of hypertension, T2DM, restrictive lung disease, bipolar disorder, ADD, mild cognitive impairm ent. He presented to the ED via EMS with weakness and hypoxia. Workup in ED revealed hypoxia requiring supplemental O2, sinus tachycardia, elevated troponin. CXR and chest CTA without evidence of focal consolidation or PE. #Diabetic foot wound | Gram positive bacteremia | Staph aureus sepsis POA - Left foot XR without evidence of osteomyelitis, no significant soft tissue gas. Leukocytosis has resolved. CRP downtrending. Echo without vegetations. Aterial duplex without obstructions. Wound / blood culture + Staph. Repeat blood cultures negative - finalized. Midline inserted 05/10 Continue cefazolin podiatry consulted - rec foot MRI that did not show osteo, bedside debridement x2, plan for IV antibiotics and outpatient WC, if worsening may need OR in the future. continue full weightbearing with boot ID consulted - plan for cefazolin for 4 week course (EOT 06/04), Follow up with ID ([facility]) in 3-4 weeks, weekly labs - WNL 05/22, next due 05/19 #Weakness | Dehydration - Dehydration resolved after 2 L NSS. Has good appetite/oral intake. Encourage oral hydration - PT/OT consulted- recommending rehab, P2P for [facility] denied 05/17. Awaiting SNF placement #Hypoxia Now resolved. Unclear etiology. CXR and chest CTA unremarkable. Respiratory BioFire negative. Procalcitonin, lactate, BNP WNL. Does have history of underlying restrictive lung disease #Elevated troponin | Sinus Tachycardia - Troponin peaked at 193 then downtrended. EKG without ischemic changes. No chest pain. Echocardiogram notes EF 50-55%, grade 2 diastolic dysfunction, mildly dilated left atrium, moderate mitral annular calcification, RVSP elevated at 30-40 mm mg, inferior vena cava mildly dilated. TSH WNL #[id number] 7.7. Metformin has been resumed. Continue ACHS BSG checks - if elevated will add CF insulin for help with wound healing Discussed with peer educator - pt frequently missed AM dose of Metformin - recommend metformin ER 750mg x2 QAM - will not change at this time, as lower PO intake inpatient and BSG has been well controlled but would change for home #Lower extremity edema Patient takes Lasix 20 mg BID. Appears as though his lower extremity swelling is chronic venous stasis so question what benefit his Lasix provides, but will continue VTE PPx: Lovenox Dispo: awaiting safe discharge dispo, SNF placement pending - will need IV abx, close podiatry/wound care follow up Estuardo has a history of bipolar disorder, ADD and mild cognitive impairment. He takes no medications for these conditions and has not had any behavioral outburst or issues for the entirety of his 16 day stay. He lives alone, manages his own apartment and still drives. He does have employment through the [employer]. Unfortuantely, because of his mild cognitive impairment he is not teachable for IV antibiotics and does not have family around who are able to assist. He requires SNF placement to safely complete the course of IV antibiotics. End of Treatment is 06/04. After his treatment is completed, he should have no issue returning to the community and being a productive member or society. He has no pain from his foot and no behavioral issues. Estuardo is stable. Admission and Anticipated Discharge Date Admission Date: May 06, 2025 Supervising Physician Co-Signing Physician Notes Attending Attestation - Chart reviewed, care plan d/w LEANDRO Arboleda. I agree with the evans components of her documentation. Tray Napoles MD Subjective patient seen sitting up in the chair. Denies pain. Excited for his upcoming birthday and is also looking forward to going. Denies any concerns. Review of Systems Review of Systems: All systems reviewed & are unremarkable except as noted in Subjective Physical Exam Physical Exam: General: NAD, vitals as above, sitting up in chair Pulm: breathing unlabored CV: well perfused, extremities: moves all extremities, no erythema to LE or swelling, boot in place Results & Data Results & Data Vital Signs (Past 12 Hours) Vital Signs Temp Pulse Resp BP Pulse Ox O2 Del Method 05/22/25 07:09 97.5 F L 60 15 126/75 96 Room Air 05/22/25 07:09 Room Air Laboratory Results CBC and chemistry reviewed PG Care Time/CCT Total # of Minutes Spent Total Time Spent with Patient: Total time spent is greater than 50% in coordination of care (as documented) at patient's floor/unit and/or counseling patient: Coding Level of Care Code 16446 SUB INP/OBS CARE 08/06MIN Diagnoses Diabetic foot ulcer E11.621; L97.509 Gram-positive bacteremia R78.81 Weakness R53.1"
[2025-05-23 07:38] VITALS: RESP 20
--- NOTE | 2025-05-23 10:48 | Discharge Summary ---
"Discharge Summary Date of Service May 23, 2025 Principal Dx & Hospital Course #1 = Principal Diagnosis (1) Diabetic foot ulcer: (2) Gram-positive bacteremia: (3) Weakness: Plan #Diabetic foot wound | Gram positive bacteremia | Staph aureus sepsis PASCUAL Marte is a pleasant 59-year-old man with past medical history of hypertension, T2DM, restrictive lung disease, bipolar disorder, ADD, mild cognitive impairment. He presented to the ED via EMS with weakness and hypoxia. Workup in ED revealed hypoxia requiring supplemental O2, sinus tachycardia, elevated troponin. CXR and chest CTA without evidence of focal consolidation or PE. Left foot XR without evidence of osteomyelitis, no significant soft tissue gas. Leukocytosis has resolved. CRP downtrending. Echo without vegetations. Aterial duplex without obstructions. Wound / blood culture + Staph. Repeat blood cultures negative - finalized. Midline inserted 05/10 podiatry consulted - rec foot MRI that did not show osteo, bedside debridement x2, plan for IV antibiotics and outpatient WC, if worsening may need OR in the future. continue full weightbearing with boot ID consulted - plan for cefazolin for 4 week course (EOT 06/04), Follow up with ID ([facility]) in 3-4 weeks, weekly labs - WNL 05/22, next due 05/19 #Weakness | Dehydration - Dehydration resolved after 2 L NSS. Has good appeti te/oral intake. Encourage oral hydration. Improving, discharge to [facility] today. #Hypoxia Now resolved. Unclear etiology. CXR and chest CTA unremarkable. Respiratory BioFire negative. Procalcitonin, lactate, BNP WNL. Does have history of underlying restrictive lung disease #Elevated troponin | Sinus Tachycardia - Troponin peaked at 193 then downtrended. EKG without ischemic changes. No chest pain. Echocardiogram notes EF 50-55%, grade 2 diastolic dysfunction, mildly dilated left atrium, moderate mitral annular calcification, RVSP elevated at 30-40 mm mg, inferior vena cava mildly dilated. TSH WNL #[id number] 7.7. Metformin has been resumed. Discussed with oncologist - pt frequently missed AM dose of Metformin - recommend metformin ER 750mg x2 QAM - will not change at this time, as lower PO intake inpatient and BSG has been well controlled but would change for home. Changed on discharge instructions. #Lower extremity edema Patient takes Lasix 20 mg BID. Appears as though his lower extremity swelling is chronic venous stasis so question what benefit his Lasix provides, but will continue Dispo: discharge to SNF today, close podiatry/wound care follow up Estuardo has a history of bipolar disorder, ADD and mild cognitive impairment. He takes no medications for these conditions and has not had any behavioral outburst or issues for the entirety of his 16 day stay. He lives alone, manages his own apartment and still drives. He does have employment through the [employer]. Unfortuantely, because of his mild cognitive impairment he is not teachable for IV antibiotics and does not have family around who are able to assist. He requires SNF placement to safely complete the course of IV antibiotics. End of Treatment is 06/04. After his treatment is completed, he should have no issue returning to the community and being a productive member or society. He has no pain from his foot and no behavioral issues. Estuardo is stable. Notes For Next Care Provider need close [place] wound care follow up and podiatry follow up (dr. Guajardo) Rec that Metformin changed to 1500 ER daily Admission HPI Per Admitting Provider Estuardo is a pleasant 59-year-old man with past medical history of hypertension, T2DM, restrictive lung disease, bipolar disorder, ADD, mild cognitive impairment. He presented to the ED via EMS with weakness and hypoxia. At the time of my exam, the patient was lying in bed in no acute distress. He states he he was at the grocery store when he had sudden onset of weakness and lightheadedness. He sat down on the ground, and was unable to get up on his own or with the assistance from staff members, so EMS was called. EMS found the patient to be dyspneic and hypoxic with an O2 saturation in the 80s. He denies feeling sick recently. Denies fever, chills, chest pain, nausea, vomiting, abdominal pain, dysuria, diarrhea. He reports feeling tired at this time but denies any other symptoms. He denies feeling short of breath or having difficulty breathing at this time. Patient reports that he took all of his regular morning medications today; no recent change in medications. He does not use supplemental oxygen at baseline. No CPAP at night. Vitals on admission significant for sinus tachycardia in 100s, new oxygen requirement of 3 L NC to maintain O2 saturation, temp 99.3; vitals otherwise stable. Labs on admission are significant for leukocytosis with WBC 12.57, Hgb 12.2 (baseline), mild hyponatremia with Na 133, elevated glucose at 196, elevated troponin at 40.5. BNP WNL at 24. Procalcitonin WNL at 0.12. Respiratory BioFire negative. CXR on admission reveals no active disease. Chest CTA with normal-appearing lungs, atherosclerosis, no evidence of PE. We discussed code status, patient wishes to be a full code. Discharge Exam General: NAD, vitals as above, sitting up in chair Pulm: breathing unlabored CV: well perfused, extremities: moves all extremities, no erythema to LE or swelling, boot removed and wound healing no signs of infection Discharge Plan Discharge Items Patient Disposition: Transfer Halfway Fac Reason For Visit: HYPOXIA, WEAKNESS Discharge Diagnosis: diabetic foot wound, bactermia Condition on Discharge: Good Activity: As commented below Activity Comment: boot in place when ambulating Non-emergency contact: Primary Care Provider Call non-emergency contact if: you have any medication questions, your symptoms worsen, your pain is worsening and your temperature is above 101 Follow-up/Referrals: Jaqueline Irby CRNP [Nurse Practitioner] - (new pt - foot wound, needs followed up after discharge from rehab ) Ramses Wright DO [Primary Care Provider] - (follow up within one week of discharge from [facility] ) Diet: Carb Consistent or DM2 Addtl Attending Provider Instructions: Mr. Prado, You were hospitalized after having weakness and shortness of breath at home. This was found to be from a blood stream infection from diabetic foot wound. You were seen by Infectious disease and podiatry and need 4 weeks of IV anti bioitics. You are going to [facility] to complete this course. For [facility]: Please change his metformin to 1500mg ER qAM upon discharge from your facility Needs to follow up with [facility] - after discharge from your facility Follow up with Dr. Guajardo while at your facility Daily dressing changes - Aquacel Ag and optifoam gauze Last weekly labs were 05/22 - will need labs again 05/29 ID Follow Up: Outpatient Discharge summary, Discharging Physician please order the following on discharge: Diagnosis: MSSA bacteremia Organism: MSSA Antibiotic (dose and frequency): cefazolin 2g IV q8h (if discharging home, can change to cefazolin 6g IV daily continuous infusion) Start of therapy: 05/08/25 End of therapy: 06/04/25 Labs should be faxed to: ID office, shirley Yokasta [facility] [phone] Labs needed and frequency: CBC w/ diff, CMP, ESR, CRP Please follow up with [facility] in outpatient clinic: Clinic Address [address] [place] [address] Office (P) [phone] Appointment-time frame: 3-4 weeks 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 - Since you frequently miss your evening dose of Metformin and your h emoglobin A1c level was above 7%, recommend your provider change your Metformin to Metformin ER 750mg x 2 in morning with breakfast meal. 2.) Lifestyle Changes. - Work with your residential case manager to help with planning/preparing more balanced meals + protein to support healing. - Eliminate chocolate milk, regular soda, or juices to drink. Choose water and low/no calorie drinks instead. Pending Studies at Discharge: No Stand-Alone Forms: [facility] Skilled Items Patient informed of condition?: Yes DNR: No Discharge Level of Care: Skilled Communicable Disease: No Discharge Prognosis: Stable Lines: Mid-Line Urinary Catheter: No Medications and DC Order Prescriptions: New cefazolin 1 gram recon soln 2 g IM Q8H Qty: 25 0RF metformin 750 mg tablet extended release 24 hr 1,500 mg PO DAILY Qty: 60 0RF Continued azelastine 137 mcg (0.1 %) aerosol,spray 2 spray INTNAS DAILY PRN (Reason: Congestion) fluticasone propionate 50 mcg/actuation spray,suspension 2 spray intranasal DAILY PRN (Reason: Allergic Symptoms) furosemide 20 mg tablet 20 mg PO BID Qty: 60 5RF (DME) Compression stockings, Large See Rx Instructions .Route .MEDSUPPLY Qty: 2 0RF Rx Instructions: As directed Discontinued metformin 500 mg tablet 500 mg PO BID Qty: 180 2RF Discharge Orders: Discharge Order (Routine); Ordered 05/23/25 Ordered By: Jessica Mendoza/Other Patient Handouts: Nutrition for Wound Healing, Type 2 Diabetes Admission Data Admit Date/Time: 05/06/25 14:34 Attending Provider: Tray Napoles Admit Provider: Annabel Maldonado Primary Care Provider: Ramses Wright Other Providers: [facility]; Dimple Parra; Estuardo Guajardo; Tray Burks Other Interventions: Discharge Summary Assessment (RN) Last Done: 05/23/25 14:25 Hospital Stay Data Consultations 05/06/25 14:18 ED Decision to Admit Stat 05/08/25 08:13 Consult Podiatry Routine 05/08/25 08:15 Consult Infectious Diseases Routine Diagnostic Imagining Performed Chest X-Ray 05/06/25 11:00 Technique: A frontal view of the chest was obtained Comparison is made to the prior examination dated 12/06/2024 Findings: There are no confluent pulmonary infiltrates. The heart size is within normal limits. No pleural effusion or pneumothorax is seen. There is no definite pulmonary nodule. No fracture is noted. No foreign body is seen Impression: No active disease Electronically signed by Adama Delgadillo 05-06-2025 11:29 AM Chest CTA 05/06/25 11:31 Clinical history: Rule out pulmonary embolism Technique: Axial computed tomography images were obtained of the chest after the administration of intravenous contrast according to the CT angiogram protocol Comparison is made to the prior CT dated 04/07/2017 Findings: There is no definite sign of pulmonary embolism. The lungs appear clear without infiltrate or mass. There is no pleural effusion or pneumothorax. There is no sign of pulmonary fibrosis or other diffuse interstitial process. No endobronchial lesion is seen There is no mediastinal, hilar, or axillary adenopathy. The thoracic aorta appears unremarkable with no sign of aneurysm or dissection. There is no pericardial effusion. There is coronary atherosclerosis The visualized upper abdomen appears unremarkable. No fracture is seen. No focal osseous lesion is evident Impression: 1. No definite sign of pulmonary embolism 2. Normal-appearing lungs 3. Coronary atherosclerosis Electronically signed by Adama Delgadillo 05-06-2025 12:37 PM Foot X-Ray 05/06/25 15:27 History: Pain Comparison: None Findings/impression: Soft tissue wound seen about the mid plantar region of the foot. There is diffuse prominent soft tissue swelling. Amputation changes at the fifth metatarsal and mid portion. No destructive bony changes otherwise seen. No significant soft tissue gas. Calcaneal enthesophytes seen. No finding to specifically suggest osteomyelitis. Electronically signed by Julius Mcdonald 05-06-2025 7:52 PM Foot MRI 05/08/25 21:52 Exam(s): MRI LEFT FOOT Without Contrast EXAM: MR Left Lower Extremity Without Intravenous Contrast, Foot CLINICAL HISTORY: Reason for exam: Left foot osteomyelitis. TECHNIQUE: Multiplanar magnetic resonance images of the left foot without intravenous contrast. COMPARISON: No relevant prior studies available. FINDINGS: LIGAMENTS: Medial collateral: Unremarkable. Lateral collateral: Unremarkable. Lisfranc: Unremarkable. TENDONS: Flexor: Unremarkable. Extensor: Unremarkable. Peroneal: Unremarkable. Tibialis anterior: Unremarkable. Tibialis posterior: Unremarkable. Muscles: Unremarkable. Fluid: Unremarkable. No joint effusion. Sinus tarsi: Unremarkable as visualized. Tarsal tunnel: Unremarkable. Plantar fascia: Unremarkable. Cartilage: Unremarkable. Bones/joints: Postop changes left partial 5th toe amputation. No acute fracture. No evidence of osteomyelitis or signal abnormality involving the metatarsal remnant. Soft tissues: Slight increase fluid signal consistent with edema within the subcutaneous soft tissues overlying the 4th metatarsal head. IMPRESSION: No acute findings in the left foot. Postop changes left partial 5th toe amputation with subcutaneous soft tissue swelling overlying the 4th metatarsal head. No MRI evidence of osteomyelitis. Electronically signed by: Jerson Gallardo MD 05/09/25 00:09 AM Duplex Scan Lower Extremity Artery 05/11/25 09:08 US arterial duplex LE LT HISTORY: 59 years-old Male diabetic ulcer, bactermia COMPARISON: None TECHNIQUE: Multiple real-time sonographic images of the left lower arterial structures were obtained assessing grayscale appearance, color and spectral flow FINDINGS: Limited exam secondary to patient body habitus. Subcutaneous edema. Triphasic waveforms are noted within the common and superficial femoral arteries. Biphasic waveforms are seen within the popliteal artery with peak systolic velocities of 39 cm/s. Nonvisualization of the peroneal artery. Biphasic waveforms within the posterior tibial artery with mildly elevated peak systolic velocities measuring up to 154 cm/s. No arterial occlusion. Biphasic waveforms in the dorsalis pedis artery. IMPRESSION: 1. No arterial occlusion identified. 2. Nonvisualization of the peroneal artery. 3. Elevated peak systolic velocities within the posterior tibial artery compatible with luminal stenosis. ACT 112: Negative or not required by law. The above report was generated using voice recognition software. It may contain grammatical, syntax or spelling errors. Electronically signed by: oRbert Harrison M.D. 05/11/2025 1:08 PM Pending Results Patient Have Any Pending Studies at Discharge: No Discharge Instructions Given to Patient (Per Discharging Provider) Mr. Prado, Reginald were hospitalized after having weakness and shortness of breath at home. This was found to be from a blood stream infection from diabetic foot wound. You were seen by Infectious disease and podiatry and need 4 weeks of IV antibioitics. You are going to [facility] to complete this course. For [facility]: Please change his metformin to 1500mg ER qAM upon discharge from your facility Needs to follow up with [facility] - after discharge from your facility Follow up with Dr. Guajardo while at your facility Daily dressing changes - Aquacel Ag and optifoam gauze Last weekly labs were 05/22 - will need labs again 05/29 ID Follow Up: Outpatient Discharge summary, Discharging Physician please order the following on discharge: Diagnosis: MSSA bacteremia Organism: MSSA Antibiotic (dose and frequency): cefazolin 2g IV q8h (if discharging home, can change to cefazolin 6g IV daily continuous infusion) Start of therapy: 05/08/25 End of therapy: 06/04/25 Labs should be faxed to: [facility], shirley [facility] [phone] Labs needed and frequency: CBC w/ diff, CMP, ESR, CRP Please follow up with [facility] in outpatient clinic: Clinic Address [address] [place] [address] Office (P) [phone] Appointment-time frame: 3-4 weeks Supervising Physician Co-Signing Physician Notes Attending Attestation and Discharge Note: Chart reviewed, discharge care plan d/w LEANDRO Arboleda. I agree with the evans components of her discharge documentation. Of note - I did not perform a bedside visit or exam on day of discharge. 59yo male with HTN, T2DM, morbid obesity w/ BMI 45, restrictive lung disease, bipolar disorder, ADD, mild cognitive impairment. Presented with weakness and hypoxia. Despite the hypoxia his chest CTA showed no focal consolidation or PE. Lung exam was wnl per records. On exam he was noted to have a left foot wound. X-rays L foot without evidence of osteomyelitis. Wound cx was sent from the left foot wound which ultimately grew MSSA. Admit blood cultures also grew MSSA. f/u blood cultures were negative for test of cure. Echo w/o valvular vegetations. He was seen by podiatry and underwent debridement x 2 at the bedside. MRI L foot did not show osteomyelitis. ID consulted and they advised IV Ancef x 4 weeks with last day of Rx on 06/04/25. I suspect the dyspnea/hypoxia was due to respiratory compensation in the setting of his sepsis/septicemia. At discharge he is transferring to [facility] for rehab and to finish his IV antibiotic course. Tray Napoles MD Total Time Total Time Spent Total Time Spent (In Minutes): Time spent day of discharge 33 minutes including direct patient care, medication reconciliation, documentation, review of labs and images, and coordination of care. Coding Level of Care Code 56471 INP/OBS DISCH >30 MIN Diagnoses Diabetic foot ulcer E11.621; L97.509 Gram-positive bacteremia R78.81 Weakness R53.1"
[2025-05-23 11:24] VITALS: BP 123/74; PULSE 68; TEMP 97.7; O2SAT 97
--- NOTE | 2025-06-05 09:43 | Coding Query ---
DEBRIDEMENT DOCUMENTATION To promote full compliance with coding requirements relating to patient care, physician participation is requested in all cases of coder operator uncertainty. Please assist us with the question(s) below: Please place an X in the parenthesis (x). If other, please document the finding: Ulcer Site: left foot, sub 5th metatarsal 05/08: Ulcer debrided lightly at bedside Need depth AND excisional vs non- excisional debridement. ( ) Excisional (X ) Non-excisional (X ) Skin (X ) Subcutaneous tissue/fascia ( ) Muscle ( ) Bone 05/09: More extensive sharp debridement of this wound was performed at bedside today. and Large full thickness ulceration noted sub 5th metatarsal. this wound was debrided sharply with a 15 blade and Tissue nipper. The wound bed is roughly 80% granular and 20% fibrotic with no mihai purulence and no proximal tracking. Need depth AND excisional vs non-excisional debridement. ( ) Excisional (X ) Non-excisional ( ) Skin (X ) Subcutaneous tissue/fascia ( ) Muscle ( ) Bone 05/20: The wound was sharply debrided and healthy bleeding was noted to the wound bed. The depth has improved significantly. and This wound was debrided sharply with a 15 blade and Tissue nipper. The wound bed is 100% granular with no mihai purulence and no proximal tracking. Currently, there is no deeper probing noted and wound measures 1.2cm in diameter and 0.3cm in depth. Periwound hyperkeratotic skin noted. Need depth AND excisional vs non-excisional debridement. (X ) Excisional ( ) Non-excisional ( ) Skin (X ) Subcutaneous tissue/fascia ( ) Muscle ( ) Bone Thank you Bernadette JI
== END 2025-05-23 16:20 | DRG 854 ==
LOC: ED 10:39 → 2W 14:34 → SUATTDRO 14:34 → 2W 15:48 → 3E 05-08 22:24